=== PATIENT | female | born 1950 | race Caucasian/White ===

== ENCOUNTER 2016-06-09 10:28 | Inpatient (IN) ==
[2016-06-09] MEDS ORDERED: ONDANSETRON 4 MG/2 ML VIAL IV STA (10:50)
[2016-06-09] MEDS ORDERED: LEVOFLOXACIN INJ 750 MG in PREMIX 1 EACH IV STA (10:50)
[2016-06-09] MEDS ORDERED: ALBUTEROL/IPRATROPIUM 3 ML NEB RESP TX STA (10:50)
[2016-06-09] MEDS ORDERED: methylPREDNISolone SOD SUC 125 MG/2 ML VIAL IV STA (10:50)
--- NOTE | 2016-06-09 10:58 | Emergency Department Note ---
Arrival - Arrival Chief Complaint: Weakness Stated Complaint: multiple falls, weakness, productive cough ED Nursing Triage Note: She from home with multiple falls, weakness, and a productive cough for a couple of weeks. Her oxgen saturation was 84% on room air upon EMS arrival. She is currently 94% on room air. Mode of Arrival: Stretcher Limitations: No Limitations Source: Patient Time Seen by Provider: 06/09/16 10:50 - History of Present Illness HPI Narrative: This 65-year-old white female presents with 2 weeks of ataxia with multiple falls resulting in blows to the head as well as pain in the low back and pelvis. Despite this, obviously the pain has not been so great she cannot ambulate such that she can fall once again. She does note that on some occasions she feels like she is just about to pass out but denies palpitations, chest pain, shortness of breath, feeling warm all over, or paroxysms of cough with this. Coincident with these symptoms over the last 2 weeks has been increased dyspnea at rest and on exertion associated with intermittent wheezing and cough productive of green sputum. She denies spiking chills or fever. This is with a background of chronic obstructive lung disease. Currently she is in no acute medical distress. Onset (ago): week(s) (Patient presents 2 weeks post onset of symptoms) Allergies/Adverse Reactions: Allergies Allergy/AdvReac Type Severity Reaction Status Date / Time No Known Allergies Allergy Verified 02/09/16 00:37 Home Medications: Home Medications Medication Instructions Recorded Confirmed Type Atorvastatin [Lipitor] 40 mg PO BEDTIME tablet 12/03/14 11/02/15 Rx Ipratropium/Albuterol Inhaler 2 puffs INH Q6HR PRN #0 12/03/14 11/02/15 Rx [Combivent Respimat Inhaler] Benzonatate [Tessalon] 100 mg PO TID PRN #0 capsule 12/28/14 11/02/15 Rx Montelukast Tab [Singulair Tab] 10 mg PO DAILY tablet 12/28/14 11/02/15 Rx Albuterol/Ipratropium Neb [Duoneb] 3 ml RESP TX RT Q4H 90 Days 02/09/15 Rx Budesonide Neb [Pulmicort Respules] 0.5 mg RESP TX RT BID 90 Days 02/09/1511/01 Rx FLUoxetine [PROzac] 30 mg PO BID 08/30/15 11/02/15 History LORazepam TAB [Ativan Tab] 1 mg PO TID 08/30/15 11/02/15 History Magnesium Oxide 400 mg PO DAILY 08/30/15 11/02/15 History Methocarbamol Tab [Robaxin Tab] 500 mg PO TID 08/30/15 11/02/15 History Oxycodone HCl/Acetaminophen 1 each PO Q6H PRN 08/30/15 11/02/15 History [Oxycodone-Acetaminophen 10-325] Potassium Chloride 20 meq PO DAILY 08/30/15 11/02/15 History Theophylline ER Tab 200 mg PO Q12H 08/30/15 11/02/15 History Triamterene/Hctz 75-50 Tab 1 tablet PO DAILY 08/30/15 11/02/15 History [Maxzide 75-50] dilTIAZem HCl [Diltiazem 24Hr ER] 360 mg PO DAILY 08/30/15 11/02/15 History metFORMIN [Glucophage] 1,000 mg PO 1800 08/30/15 02/14/16 History metFORMIN [Glucophage] 1,000 mg PO QAM 08/30/15 02/14/16 History Levothyroxine Tab [Synthroid Tab] 150 mcg PO DAILY@0700 11/06/15 11/06/15 History Fluconazole 100 mg PO DAILY #3 tablet 11/12/15 Rx Theophylline ER Cap (24 Hr) 200 mg PO DAILY #30 capsule 02/07/16 Rx [Jensen-24] Levofloxacin Tab [Levaquin Tab] 750 mg PO DAILY #5 tablet 02/16/16 Rx Review of System - Review of System 12 point system: reviewed and no additional remarkable complaints except as stated - Review of System Constitutional: Present: as per HPI Respiratory: Present: as per HPI Musculoskeletal: Present: as per HPI Neurological: Present: as per HPI Medical,Surgical,& Family Hx - Medical History Cardio: History of: Hypertension Psychological: History of: Anxiety Disorders, Depression (MANIC DEPRESSIVE MOOD DISORDER) Neurology: No history of: Seizures HEENT: History of: Eye Problem (wears glasses) Endocrine: History of: Diabetes Mellitus (NIDDM), Thyroid Disorder No history of: Diabetes Mellitus (IDDM) Respiratory: History of: Asthma, Bronchitis, COPD (Chronic), Intubation Genitourinary: History of: Recurring Urinary Tract Infections Gastrointestinal: History of: Hemorrhoids Musculoskeletal: History of: Back/Neck Problems, Musculoskeletal Problems ( Donor bone to C5 & C6) - Surgical History Cardiac Surgeries: Sugical HX of: Cardiac Catheterization HEENT Surgeries: Surgical HX of: Thyroid Surgery Abdominal Surgeries: Surgical HX of: Appendectomy Reproductive Surgeries: Surgical HX of;: Hysterectomy (Partial) - Family History Family History: Reports;: Family Cancer (sister-lung), Family Heart Disease, Family Hypertension - Social History Smoking Status: Current every day smoker Frequency of Alcohol Use: None Type of Drug Use: None Exam Physical Examination: GENERAL: Well developed, well nourished elderly white female in no acute distress. HEENT: Normocephalic. No trauma. Moist mucous membranes. EOMI. PERRLA. ENT NML NECK: Supple. No adenopathy. CARDIAC: Regular. No murmurs. Heart rate 91 CHEST: Diffuse expiratory wheezing. No respiratory distress. O2 sat 94% ABDOMEN: Soft. Nontender. Active bowel sounds. EXTREMITIES: No trauma. Normal ROM. No pedal edema. Mild lumbar spine tenderness with negative leg raising. Of note full range of motion both hips without any complaints of pain. She does complain of some slight discomfort with pelvic compression. SKIN: No diaphoresis. No rash. NEURO: Alert. Oriented 3. Motor, sensory, vibratory intact. No focal deficits. Vital Signs: Vital Signs Temperature 97.6 F 06/09/16 10:29 Pulse Rate 91 H 06/09/16 11:12 Respiratory Rate 16 06/09/16 11:12 Blood Pressure 130/98 06/09/16 10:29 O2 Sat by Pulse Oximetry 99 06/09/16 11:12 Course - Reevaluation(s) Reevaluation #1: Advised patient of the necessity of admission given her change in renal function since February as well as evidence of infection. - Consultations Consultation #1: Discussed with hospitalist service who will admit for further evaluation treatment. Results - Labs CBC & BMP: 06/09/16 10:42 06/09/16 10:42 Labs: I reviewed the laboratory noted the elevated white blood count as well as the elevated creatinine. I have also noted the urine which reveals early cystitis. - Impressions EKG: Sinus rhythm with MS and QRS durations normal nonspecific ST changes. No acute injury pattern noted. - Diagnostic Findings Procedure: Chest x-ray: image reviewed by me, report reviewed by me (Left lower lobe atelectasis, evidence of COPD.), CT: image reviewed by me, report reviewed by me (Head: Cerebral atrophy with microvascular ischemia but no acute injury pattern noted.), X-ray: image reviewed by me, report reviewed by me (Pelvis: No acute fractures but DJD of the left hip, lumbar spine no acute injuries although advanced L4-L5 DJD changes.) Disposition Clinical Impression: Ataxia, Chronic renal failure, Cystitis Case discussed with: patient Disposition: Still a Patient Condition: Stable Time of Disposition: 12:19
[2016-06-09 11:05] LABS: Basophils # 0.1 10*3/uL (0.0-0.2); Basophils % 0.4 % (0.0-0.8); Eosinophils # 0.4 10*3/uL (0.0-0.87); Eosinophils % 2.6 % (0.00-10.9); Hematocrit 45.2 VOL% (35.7-47.0); Hemoglobin 14.5 GM/DL (12.0-16.0); Immature Granulocytes % 0.4 %; Immature Granulocytes Absolute 0.05 #; Lymphocytes # 1.6 10*3/uL (1.4-4.0); Lymphocytes % 11.1 % (21.3-54.2); Mean Corpuscular HGB Conc 32.1 GM/DL (32-36); Mean Corpuscular Hemoglobin 29 PG (27-34); Mean Corpuscular Volume 89.2 FL (87-102); Mean Platelet Volume 10.6 FL (9.6-12.0); Monocytes # 1.3 10*3/uL (0.11-0.8); Monocytes % 9.4 % (1.7-12.7); Neutrophils # 10.7 10*3/uL (1.4-7.4); Neutrophils % 76.1 % (38.7-73.9); Platelet Count 314 T/CUMM (130-400); Red Blood Count 5.07 MC/CUMM (3.8-5.5); Red Cell Distribution Width 15.1 % (9.3-17.3); White Blood Count 14.1 T/CUMM (4-12)
[2016-06-09] MEDS ORDERED: methylPREDNISolone SOD SUC 125 MG/2 ML VIAL ONE (11:06)
[2016-06-09] MEDS ORDERED: LEVOFLOXACIN INJ 150 ML IV ONE (11:06)
[2016-06-09] MEDS ORDERED: TERBUTALINE 1 MG/1 ML VIAL SUBCUT ONE (11:07)
[2016-06-09] MEDS ORDERED: ONDANSETRON 4 MG/2 ML VIAL ONE (11:07)
--- NOTE | 2016-06-09 11:10 | EKG Report ---
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
[2016-06-09] MEDS: TERBUTALINE 1 MG/1 ML VIAL SUBCUT SCH ×4 (11:13→18:18)
[2016-06-09 11:16] LABS: PT Patient Result 10.7 SECS; Partial Thromboplastin Time 29.8 SECS (0-40)
--- NOTE | 2016-06-09 11:31 | CT Report ---
Referring physician: Basilio Walker Exam: CT brain without contrast Date: June 09, 2016 Comparison: None Reason: Altered mental status The patient is an Emergency Department patient on June 09, 2016. Technique: Axial images of the head were obtained without the use of contrast. Total DLP was 914.6 mGy*cm. Findings: There is mild generalized cerebral atrophy/volume loss. Scattered areas of hypoattenuation are also seen within the cerebral white matter bilaterally. This is nonspecific but likely represents chronic microvascular ischemic change. No hydrocephalus or midline shift is present. There is no evidence of recent intracranial hemorrhage, abnormal mass effect or an acute infarction. No acute osseous process is seen. The mastoid air cells and visualized paranasal sinuses are clear. Impression: 1. No acute intracranial process is identified. 2. Mild generalized cerebral atrophy/volume loss and probable chronic microvascular ischemic change. The CT exam was performed using one or more of the following dose reduction techniques: Automated exposure control and adjustment of the mA and/or kV according to patient size. PROCEDURE INTERPRETED AT [facility] DEPARTMENT OF RADIOLOGY Final Report Signed by: Dr. Arlene Ag
[2016-06-09 11:35] LABS: Alanine Aminotransferase 11 U/L (13-56); Albumin 3.4 G/DL (3.4-5.0); Alkaline Phosphatase 114 U/L (45-117); Aspartate Amino Transferase 9 U/L (0-37); Blood Urea Nitrogen 60 MG/DL (7-18); Calcium 10.1 MG/DL (8.5-10.1); Glucose 113 MG/DL (74-106); Osmolality,Calculated 285.2 MOS/KG (273-304); Potassium 4.1 MMOL/L (3.5-5.1); Sodium 134 MMOL/L (136-145); Total Protein 7.5 G/DL (6.4-8.3); Troponin I Only < 0.015 NG/ML (0.00-0.045)
--- NOTE | 2016-06-09 11:44 | XRay Report ---
Referring Physician: Basilio Walker Exam: XR chest 1V portable Date: June 09, 2016 at 11:24 AM Reason: Shortness of breath Comparison: Chest 2 views February 15, 2016, chest 2 views February 25, 2013 Findings: The cardiac silhouette is normal in size. There are calcified hilar lymph nodes, and a calcific granuloma is seen at the right lung base. The lungs are also hyperexpanded, which can be seen in COPD. Minimal opacities are present at the left lung base and could represent atelectasis or scarring. Pneumonia is felt less likely. No pneumothorax or pleural effusion is identified. The osseous structures appear stable with surgical fusion of the cervical spine. Impression: There is minimal atelectasis or scarring at the left lung base. The lungs are also hyperexpanded, which can be seen in COPD. PROCEDURE INTERPRETED AT [facility] DEPARTMENT OF RADIOLOGY Final Report Signed by: Dr. Arlene Ag
--- NOTE | 2016-06-09 11:45 | XRay Report ---
Referring Physician: Basilio Walker Exam: XR pelvis AP 1 or 2 Views Date: June 09, 2016 at 11:26 AM Reason: Status post fall, pelvic pain Comparison: Left hip x-rays June 20, 2013 Findings: There is minimal joint space narrowing at the left hip as well as moderate marginal spurring at the left femoral head/neck junction. No acute fracture, dislocation or osseous destructive process is identified. Impression: 1. No acute osseous process is identified. 2. Moderate degenerative change at the left hip, similar to before. PROCEDURE INTERPRETED AT [facility] DEPARTMENT OF RADIOLOGY Final Report Signed by: Dr. Arlene Ag
--- NOTE | 2016-06-09 11:49 | XRay Report ---
Referring Physician: Basilio Walker Exam: XR lumbar spine AP/LAT Date: June 09, 2016 at 11:30 AM Reason: Status post fall, back pain, initial encounter Comparison: Lumbar spine x-rays November 11, 2015 Findings: The lumbar vertebral bodies are normal in height, and sagittal alignment is within normal limits. There is [id number] disc space narrowing at L3-L4 and multilevel anterior marginal spurring. There is also mild facet arthropathy at L4-L5 and L5-S1. No acute osseous process is seen. Note is made of a probable calcified granuloma at the right lung base and scattered calcified plaque at the abdominal aorta. Impression: Degenerative change at the lumbar spine as above, most prominent at L3-L4. This is similar to before. No acute osseous process is identified. PROCEDURE INTERPRETED AT [facility] DEPARTMENT OF RADIOLOGY Final Report Signed by: Dr. Arlene Ag
[2016-06-09 12:04] LABS: Apearance,Urine CLEAR (Clear); Bilirubin,Urine Negative (Negative); Blood, Urine Small mg/dL (Negative); Glucose,Urine (UA) Negative (Negative); Ketones,Urine Negative (Negative); Nitrite,Urine Negative (Negative); Protein,Urine Negative; RBC,Urine 3 /HPF (0-4); Urine Color Yellow (Yellow); Urine Specific Gravity 1.011 (1.001-1.035); Urine Urobilinogen < 2.0 EU/DL (0.2-1.0); WBC,Urine 10 /HPF (0-6)
[2016-06-09 12:12] LABS: Barbiturates Screen,Urine Negative (Negative); Benzodiazepines Screen,Urine Negative (Negative); Cannabinoid Screen,Urine Negative (Negative); Opiate Screen,Urine Positive (Negative); Phencyclidine Screen,Urine Negative (Negative)
[2016-06-09] MEDS ORDERED: LACTULOSE 20 GM/30 ML UDCUP PO PRN (13:11)
[2016-06-09] MEDS ORDERED: ACETAMINOPHEN 325 MG TABLET PO PRN (13:11)
[2016-06-09] MEDS ORDERED: SODIUM CHLORIDE 0.9% 1,000 ML IV ONE (13:20)
[2016-06-09] MEDS ORDERED: BENZONATATE 100 MG CAPSULE PO PRN (13:21)
--- NOTE | 2016-06-09 13:26 | Hospitalist History & Physical ---
<Alvarez Rader - Last Filed: 06/09/16 15:18> History of Present Illness History of present illness: Ms. Rodrigues is a 65 year old female with a history of hypertension, COPD, tobaccoism and chronic pain who presents to the ED with complaints of multiple falls and ataxia x 2 weeks. The patient states that, most recently, she fell last night while attempting to sit on the commode. She lost her balance and fell onto the floor. She denies hitting her head, but says this has happened several times over the last two weeks. She admits to having bouts of dizziness and blurred vision, increased shortness of breath with associated productive cough. She walks with the assistance of a walker and reports that she has hardwood floors throughout her house. She appears confused and in moderate distress as she began to cry several times throughout the interview when describing her falling episodes stating "I just keep falling and I don't know why". Otherwise, she has no other complaints. She admits to smoking 2-3 packs of cigarettes per day but refuses a nicotine patch while hospitalized. She denies alcohol use. She will be admitted to the hospital medicine service for further evaluation and treatment. She is a full code. Case has been discussed with Dr. Harvey. Home Medications Medication Instructions Recorded Confirmed Type Atorvastatin [Lipitor] 40 mg PO BEDTIME tablet 12/03/14 06/09/16 Rx Ipratropium/Albuterol Inhaler 2 puffs INH Q6HR PRN #0 12/03/14 06/09/16 Rx [Combivent Respimat Inhaler] Montelukast Tab [Singulair Tab] 10 mg PO DAILY tablet 12/28/14 06/09/16 Rx Albuterol/Ipratropium Neb [Duoneb] 3 ml RESP TX RT Q4H 90 Days 02/09/15 Rx LORazepam TAB [Ativan Tab] 1 - 2 mg PO TID PRN 08/30/15 06/09/16 History Magnesium Oxide 400 mg PO DAILY 08/30/15 06/09/16 History Potassium Chloride 20 meq PO DAILY 08/30/15 06/09/16 History Triamterene/Hctz 75-50 Tab 1 tablet PO DAILY 08/30/15 06/09/16 History [Maxzide 75-50] dilTIAZem HCl [Diltiazem 24Hr ER] 360 mg PO DAILY 08/30/15 06/09/16 History metFORMIN [Glucophage] 500 mg PO QAM 08/30/15 06/09/16 History Levothyroxine Tab [Synthroid Tab] 150 mcg PO DAILY@0700 11/06/15 06/09/16 History FLUoxetine [PROzac] 40 mg PO BEDTIME 06/09/16 06/09/16 History Levothyroxine Sodium 100 mcg PO DAILY 06/09/16 06/09/16 History Theophylline ER Tab 300 mg PO BID W/MEALS 06/09/16 06/09/16 History Theophylline ER Tab (24 Hr) 400 mg PO DAILY W/BREAKFAST 06/09/16 06/09/16 History Trazodone HCl 100 mg PO BEDTIME PRN 06/09/16 06/09/16 History Allergies Allergy/AdvReac Type Severity Reaction Status Date / Time No Known Allergies Allergy Verified 02/09/16 00:37 - Constitutional Constitutional: Present: fatigue, frequent falls, weakness. Absent: fever(s) - EENT Eyes: Present: blurry vision, requires corrective lense. Absent: loss of vision Ears: Absent: decreased hearing, ear pain - Gastrointestinal Gastrointestinal: Present: constipation - Genitourinary Genitourinary: Absent: difficulty urinating, dysuria - Musculoskeletal Musculoskeletal: Present: arthralgias, back pain, muscle weakness - Neurological Neurological: Present: dizziness, frequent falls. Absent: abnormal gait, abnormal speech, numbness, syncope Exam - Constitutional Vitals: Period Temp Pulse Resp BP Sys/Naqvi Pulse Ox Last 24 Hr 97.9 F 100 20 124/74 97 Results - Labs CBC & BMP: 06/09/16 10:42 06/09/16 10:42 <White,Debra R - Last Filed: 06/09/16 15:41> Assessment and Plan (1) Acute on chronic renal failure Status: Acute Assessment and plan: Potassium and CO2 normal, will get ABG, suspect CO2 high, NS bolus and NS at 150 ml/hr, concerned pt on metformin, Current Visit: Yes (2) Acute exacerbation of chronic obstructive airways disease Status: Acute Assessment and plan: duonebs, solumedrol IV and levaquin Current Visit: No (3) UTI (urinary tract infection) Status: Acute Assessment and plan: in 2014 grew enterococcus sensitive to vanco, Will give daptomycin Current Visit: Yes (4) Manic depressive disorder Status: Acute Assessment and plan: resume home meds when known Current Visit: No Qualifiers: Active/Remission status: in remission of unspecified degree Qualified Code( s): F31.70 - Bipolar disorder, currently in remission, most recent episode unspecified (5) Hypothyroidism Problem details: Status: Chronic Assessment and plan: cont levothyroxine Current Visit: No (6) Weakness generalized Status: Acute Assessment and plan: PT and OT Current Visit: No (7) Diabetes Status: Chronic Assessment and plan: hgb A1c, cont isc, hold metformin Current Visit: No Qualifiers: Diabetes mellitus type: type 2 (8) Diabetic neuropathy Status: Acute Current Visit: No History of Present Illness Chief complaint: falling History of present illness: Ms. Rodrigues is a 65 year old white female presents with 2 weeks of ataxia with multiple falls resulting in blows to the head as well as pain in the low back and pelvis. Despite this, obviously the pain has not been so great she cannot ambulate such that she can fall once again. She does note that on some occasions she feels like she is just about to pass out but denies palpitations, chest pain, shortness of breath, feeling warm all over, or paroxysms of cough with this. Coincident with these symptoms over the last 2 weeks has been increased dyspnea at rest and on exertion associated with intermittent wheezing and cough productive of green sputum. She denies spiking chills or fever. This is with a background of chronic obstructive lung disease. Currently she is in no acute medical distress. Medical,Surgical,& Family Hx - Medical History Cardio: History of: Hypertension Psychological: History of: Anxiety Disorders, Depression (MANIC DEPRESSIVE MOOD DISORDER) Neurology: No history of: Seizures HEENT: History of: Eye Problem (wears glasses) Endocrine: History of: Diabetes Mellitus (NIDDM), Thyroid Disorder No history of: Diabetes Mellitus (IDDM) Respiratory: History of: Asthma, Bronchitis, COPD (Chronic), Intubation Genitourinary: History of: Recurring Urinary Tract Infections Gastrointestinal: History of: Hemorrhoids Musculoskeletal: History of: Back/Neck Problems, Musculoskeletal Problems ( Donor bone to C5 & C6) - Surgical History Cardiac Surgeries: Sugical HX of: Cardiac Catheterization HEENT Surgeries: Surgical HX of: Thyroid Surgery Abdominal Surgeries: Surgical HX of: Appendectomy Reproductive Surgeries: Surgical HX of;: Hysterectomy (Partial) - Family History Family History: Reports;: Family Cancer (sister-lung), Family Heart Disease, Family Hypertension - Social History Smoking Status: Current every day smoker Frequency of Alcohol Use: None Type of Drug Use: None Marital Status: Lives With:: Spouse Functional capacity: independent ambulation - EENT Nose, mouth and throat: Present: headache(s). Absent: sore throat - Cardiovascular Cardiovascular: Present: dyspnea, dyspnea on exertion. Absent: chest pain at rest - Respiratory Respiratory: Present: cough, dyspnea, dyspnea on exertion, wheezing - Gastrointestinal Gastrointestinal: Absent: abdominal pain, nausea, vomiting - Psychiatric Psychiatric: Present: confusion, depression, difficulty concentrating - Endocrine Endocrine: Present: fatigue - Hematologic/Lymphatic Hematologic/Lymphatic: Present: easy bleeding, easy bruising Exam - Constitutional Vitals: Period Temp Pulse Resp BP Sys/Naqvi Pulse Ox Last 24 Hr 97.6 F-97.6 F 16-91 16-91 130-130/98-98 94-99 General appearance: normal weight, mild distress - Head Head exam: Present: normal inspection, normocephalic - Eye Eye exam: Present: EOMI. Absent: scleral icterus Pupils: Present: KRISTEL, normal accommodation - ENT ENT exam: Present: normal exam, normal external ear exam - Neck Neck exam: Absent: lymphadenopathy, thyromegaly - Respiratory Respiratory exam: Present: decreased breath sounds, wheezes. Absent: rhonchi - Cardiovascular Cardiovascular exam: Present: regular rate and rhythm. Absent: systolic murmur - GI/Abdominal GI/Abdominal exam: Present: normal bowel sounds, soft. Absent: tenderness - Extremities Exam Extremities exam: Present: normal inspection, normal capillary refill - Neurological Exam Neurological exam: Present: alert, oriented X3, CN II-XII intact, reflexes normal. Absent: motor sensory deficit - Psychiatric Psychiatric exam: Present: depressed, flat affect - Skin Skin exam: Present: normal color, warm Results - Labs CBC & BMP: 06/09/16 10:42 06/09/16 10:42 Lab Results: I have reviewed the past 24 hour labs - EKG EKG shows: sinus rhythm - Diagnostic Findings Procedure: Chest x-ray: report reviewed by me (copd), CT: report reviewed by me (cerebral atrophy, no acute stroke )
[2016-06-09] MEDS ORDERED: THEOPHYLLINE ER (24 HR) 200 MG CAPSULE PO SCH (13:30)
[2016-06-09] MEDS ORDERED: PANTOPRAZOLE 40 MG TABLET PO SCH (13:30)
[2016-06-09] MEDS ORDERED: DEXTROSE 50% 25 GM/50 ML VIAL IV PRN (13:39)
[2016-06-09] MEDS ORDERED: GLUCAGON 1 MG VIAL IM PRN (13:39)
[2016-06-09 13:56] LABS: Magnesium 3.1 MG/DL (1.8-2.4); Thyroid Stimulating Hormone 4.99 uIU/ml (0.358-3.74)
[2016-06-09 14:07] LABS: ABG Base Excess -0.6 MMOL/L (-2.5-2.5); ABG HCO3 24.8 MMOL/L (20-26); ABG Oxygen Saturation 93.9 % (95-100); ABG PCO2 43.6 MM HG (35-48); ABG PH 7.373 (7.35-7.45); ABG PO2 72.3 MM HG (80-95); ABG TCO2 26.1 MMOL/L (23-27)
--- NOTE | 2016-06-09 14:13 | Ultrasound Report ---
Referring Physician: Debra Harvey Exam: US renal Bilateral Date: June 09, 2016 Reason: Acute versus chronic kidney disease Comparison: CT abdomen and pelvis April 10, 2012 Technique: Grayscale ultrasound images of both kidneys were obtained. Ultrasound images were captured and stored. Findings: The right kidney measures 12.2 x 6.0 x 5.5 cm, and the left kidney measures 12.4 x 5.7 x 4.7 cm. No hydronephrosis or suspicious renal lesion is identified. The renal parenchyma echogenicity is unremarkable as visualized. Impression: No acute renal process is identified. PROCEDURE INTERPRETED AT [facility] DEPARTMENT OF RADIOLOGY Final Report Signed by: Dr. Arlene Ag
[2016-06-09] MEDS: ALBUTEROL/IPRATROPIUM 3 ML NEB RESP TX SCH ×3 (15:31→23:49)
[2016-06-09] MEDS: ENOXAPARIN 30 MG/0.3 ML SYRINGE SUBCUT SCH (15:53)
--- NOTE | 2016-06-09 17:16 | Nephrology Consult Note ---
History of Present Illness Chief complaint: Referred for MAGEN. Creatinine 0.20 Feb 2016, 7.5 on admission. History of present illness: Ms. Rodrigues is a 65 year old female who is a poor historian. She reports many falls over the last 3 weeks. She can't remember when she last ate. She lives with her and does the cooking at home. She can not remember when the last BM she had was. She reports being very thirsty. PMHx per record review: COPD, HTN, DM2, bipolar d/o, anxiety/depression. She admits to bilat dull flank pain, denies rash. UA in ED 1.011/6.0, no protein, trace blood, nitrite neg, LE +, 3 RBCs/10 wbcs on micro. No bacteria. Renal u/s with large sized kidneys: R 12.2cm, L 12.4cm, read as normal echogenicity but is subjective compared to liver parenchyma. Her home meds reviewed. she is on maxzide (75/50) commonly associated with allergic interstitial nephritis. No new meds recently per patient, but hx is questionable. No additional helpful information regarding her falls was able to be obtained when asked about dizziness, weakness. Home Medications Medication Instructions Recorded Confirmed Type Atorvastatin [Lipitor] 40 mg PO BEDTIME tablet 12/03/14 06/09/16 Rx Ipratropium/Albuterol Inhaler 2 puffs INH Q6HR PRN #0 12/03/14 06/09/16 Rx [Combivent Respimat Inhaler] Montelukast Tab [Singulair Tab] 10 mg PO DAILY tablet 12/28/14 06/09/16 Rx Albuterol/Ipratropium Neb [Duoneb] 3 ml RESP TX RT Q4H 90 Days 02/09/15 Rx LORazepam TAB [Ativan Tab] 1 - 2 mg PO TID PRN 08/30/15 06/09/16 History Magnesium Oxide 400 mg PO DAILY 08/30/15 06/09/16 History Potassium Chloride 20 meq PO DAILY 08/30/15 06/09/16 History Triamterene/Hctz 75-50 Tab 1 tablet PO DAILY 08/30/15 06/09/16 History [Maxzide 75-50] dilTIAZem HCl [Diltiazem 24Hr ER] 360 mg PO DAILY 08/30/15 06/09/16 History metFORMIN [Glucophage] 500 mg PO QAM 08/30/15 06/09/16 History Levothyroxine Tab [Synthroid Tab] 150 mcg PO DAILY@0700 11/06/15 06/09/16 History Allopurinol 1 tablet PO DAILY 06/09/16 06/09/16 History FLUoxetine [PROzac] 40 mg PO BEDTIME 06/09/16 06/09/16 History Levothyroxine Sodium 100 mcg PO DAILY 06/09/16 06/09/16 History Theophylline ER Tab 300 mg PO BID W/MEALS 06/09/16 06/09/16 History Theophylline ER Tab (24 Hr) 400 mg PO DAILY W/BREAKFAST 06/09/16 06/09/16 History Trazodone HCl 100 mg PO BEDTIME PRN 06/09/16 06/09/16 History Allergies Allergy/AdvReac Type Severity Reaction Status Date / Time No Known Allergies Allergy Verified 02/09/16 00:37 Medical,Surgical,& Family Hx - Medical History Cardio: History of: Hypertension Psychological: History of: Anxiety Disorders, Depression (MANIC DEPRESSIVE MOOD DISORDER) Neurology: No history of: Seizures HEENT: History of: Eye Problem (wears glasses) Endocrine: History of: Diabetes Mellitus (NIDDM), Thyroid Disorder No history of: Diabetes Mellitus (IDDM) Respiratory: History of: Asthma, Bronchitis, COPD (Chronic), Intubation Genitourinary: History of: Recurring Urinary Tract Infections Gastrointestinal: History of: Hemorrhoids Musculoskeletal: History of: Back/Neck Problems, Musculoskeletal Problems ( Donor bone to C5 & C6) - Surgical History Cardiac Surgeries: Sugical HX of: Cardiac Catheterization Neurologic Surgeries: Patient denies: Neurologic Surgery HEENT Surgeries: Surgical HX of: Thyroid Surgery Abdominal Surgeries: Surgical HX of: Appendectomy Reproductive Surgeries: Surgical HX of;: Hysterectomy (Partial) - Family History Family History: Reports;: Family Cancer (sister-lung), Family Heart Disease, Family Hypertension - Social History Smoking Status: Current every day smoker Frequency of Alcohol Use: None Type of Drug Use: None Exam - Vital Signs Vital signs: Period Temp Pulse Resp BP Sys/Naqvi Pulse Ox Last 24 Hr 97.9 F 100 20 124/74 97 - General Appearance General appearance: well-developed, obese, chronically ill EENT: ATNC, PERRL, mucous membranes dry, hearing intact, vision intact Neck: no JVD, no thyromegaly Respiratory: no kyphosis, wheezing, course breath sounds Cardiology: no murmurs, no rub, no edema Gastrointestinal: normoactive bowel sounds, no tenderness Integumentary: no rash, warm and dry (fine bilateral hand tremor she states has been there for years) Neurologic: no asterixis, confused Musculoskeletal: no deformities, no erythema Psychiatric: mood/affect appropriate, cooperative Results - Labs CBC & BMP: 06/09/16 10:42 06/09/16 10:42 Assessment and Plan (1) Acute kidney injury Problem details: suspicious for acute interstitial nephritis, most likely culprits in her meds are the maxzide and protonix. No acute indication for renal replacement therapy at this time. Status: Resolved Assessment and plan: Urinary indices for prerenal vs intrinsic renal process ordered. Urine eosinophils. Stop protonix, start misoprostol 200mcg po ac& hs. Stop maxzide. The treatment for severe AIN is withdrawal of possible offending agents and 10- 14 days of glucocorticoids. She is already on high dose solumedrol. Current Visit: No (2) Hematuria Problem details: Likely due to AIN. Must rule out TCCA bladder in [facility] smoker. Counseled her she should quit. Status: Acute Current Visit: Yes (3) Pyuria, sterile Problem details: Likely AIN. Urine eos 95% specific, only 50% sensitive however. Ordered and pending. No renal biopsy indicated at this time. Status: Acute Current Visit: Yes
[2016-06-09] MEDS: miSOPROStol 200 MCG TABLET PO SCH ×2 (18:01→20:25)
[2016-06-09] MEDS: THEOPHYLLINE ER 300 MG TABLET PO SCH (18:01)
[2016-06-09] MEDS: SODIUM CHLORIDE 0.9% 1,000 ML IV SCH ×2 (18:02→20:30)
[2016-06-09] MEDS: INSULIN LISPRO 100 UNIT/ML SUBCUT SCH ×2 (18:02→20:26)
[2016-06-09 18:05] LABS: Hepatitis A Ab IgM Quant 0.13 Index; Hepatitis A Ab IgM Result Negative (Negative); Hepatitis B Core IgM Quant 0.17 Index; Hepatitis B Core IgM Result Negative (Negative); Hepatitis B Surface Ag Quant < 0.10 Index; Hepatitis B Surface Ag Result Negative (Negative); Hepatitis C Virus Ab Quant 0.09 Index; Hepatitis C Virus Ab Result Negative (Negative)
[2016-06-09 18:25] LABS: Creatinine,Urine Random 102 MG/DL; Total Protein,Urine Random 44 MG/DL
[2016-06-09] MEDS: methylPREDNISolone SOD SUC 40 MG/1 ML VIAL IV SCH (18:45)
[2016-06-09] MEDS: ONDANSETRON 4 MG/2 ML VIAL IV PRN (18:47)
[2016-06-09] MEDS: BUDESONIDE 0.5 MG/2 ML NEB RESP TX SCH (19:07)
[2016-06-09] MEDS: ATORVASTATIN 40 MG TABLET PO SCH (20:25)
[2016-06-09] MEDS: ZALEPLON 5 MG CAPSULE PO PRN (20:26)
[2016-06-09] MEDS ORDERED: FLUoxetine 10 MG CAPSULE PO SCH (21:00)
[2016-06-09] MEDS: FLUoxetine 20 MG CAPSULE PO SCH (21:29)
[2016-06-10] MEDS: methylPREDNISolone SOD SUC 40 MG/1 ML VIAL IV SCH ×3 (03:42→18:12)
[2016-06-10] MEDS: ALBUTEROL/IPRATROPIUM 3 ML NEB RESP TX SCH ×6 (03:43→23:28)
[2016-06-10 05:24] LABS: Basophils % 0.1 % (0.0-0.8); Hematocrit 38.7 VOL% (35.7-47.0); Hemoglobin 12.2 GM/DL (12.0-16.0); Lymphocytes # 0.5 10*3/uL (1.4-4.0); Lymphocytes % 4.4 % (21.3-54.2); Mean Corpuscular HGB Conc 31.5 GM/DL (32-36); Mean Corpuscular Hemoglobin 29 PG (27-34); Mean Corpuscular Volume 90.6 FL (87-102); Mean Platelet Volume 10.8 FL (9.6-12.0); Monocytes # 0.1 10*3/uL (0.11-0.8); Neutrophils # 9.8 10*3/uL (1.4-7.4); Neutrophils % 93.5 % (38.7-73.9); Platelet Count 256 T/CUMM (130-400); Red Blood Count 4.27 MC/CUMM (3.8-5.5); White Blood Count 10.4 T/CUMM (4-12)
[2016-06-10 05:50] LABS: Hypochromasia 1+; Lymphocytes 6 % (20-55); Platelet Estimate Adequate; Segmented Neutrophils 94 % (50-85); Total Cells Counted 100
[2016-06-10 05:55] LABS: Calcium 9.4 MG/DL (8.5-10.1); Osmolality,Calculated 295.8 MOS/KG (273-304); Potassium 4.4 MMOL/L (3.5-5.1)
[2016-06-10] MEDS ORDERED: LEVOTHYROXINE 150 MCG TABLET PO SCH (07:00)
[2016-06-10] MEDS: BUDESONIDE 0.5 MG/2 ML NEB RESP TX SCH ×2 (08:07→19:00)
[2016-06-10] MEDS: LEVOTHYROXINE 100 MCG TABLET PO SCH (08:29)
[2016-06-10] MEDS: INSULIN LISPRO 100 UNIT/ML SUBCUT SCH ×4 (08:29→20:11)
[2016-06-10] MEDS: THEOPHYLLINE ER 300 MG TABLET PO SCH ×2 (08:29→16:37)
[2016-06-10] MEDS: miSOPROStol 200 MCG TABLET PO SCH ×4 (08:29→20:08)
[2016-06-10] MEDS: SODIUM CHLORIDE 0.9% 1,000 ML IV SCH ×3 (09:50→21:37)
--- NOTE | 2016-06-10 10:29 | Hospitalist Progress Note ---
Assessment and Plan (1) Acute on chronic renal failure Status: Acute Assessment and plan: May be secondary to acute interstitial nephritis secondary to Maxzide, Dr. Serrano is following. Urine for eosinophils is negative. Renal function appears to be improving with fluid. Continue Cytotec Current Visit: Yes (2) Acute exacerbation of chronic obstructive airways disease Status: Acute Assessment and plan: Continue duonebs, theophylline, solumedrol IV and levaquin Current Visit: No (3) UTI (urinary tract infection) Status: Acute Assessment and plan: Urine culture negative no growth, continue daptomycin for now Current Visit: Yes (4) Manic depressive disorder Status: Acute Assessment and plan: Continue Prozac Current Visit: No Qualifiers: Active/Remission status: in remission of unspecified degree Qualified Code( s): F31.70 - Bipolar disorder, currently in remission, most recent episode unspecified (5) Hypothyroidism Problem details: Status: Chronic Assessment and plan: cont levothyroxine, TSH 4.9 Current Visit: No (6) Weakness generalized Status: Acute Assessment and plan: PT and OT Current Visit: No (7) Diabetes Status: Chronic Assessment and plan: hgb A1c 5.9, cont isc, hold metformin, but sugars will be higher due to steroids. We will give low-dose of insulin. Current Visit: No Qualifiers: Diabetes mellitus type: type 2 (8) Diabetic neuropathy Status: Acute Assessment and plan: Continue gabapentin Current Visit: No Hospitalist: Subjective Interval history: Patient very emotional. She sees Dr. Alaniz and takes pain medicine frequently throughout the day. The pain medicine may be contributing to her falls. Exam - Constitutional Vitals: Period Temp Pulse Resp BP Sys/Naqvi Pulse Ox Last 24 Hr 97.9 F-98.8 F 84-100 16-25 121-146/64-84 90-99 Exam: Heart Rate-[RRR] Lungs-[diminished and wheezing but better than yesterday] GI-[+bs soft, NT] Ext-[no edema] Neuro [Motor 5/5], [alert and oriented times 3] psych [depressed mood and affect] General [no acute distress] Results - Labs CBC & BMP: 06/10/16 04:54 06/10/16 04:54 Lab Results: I have reviewed the past 24 hour labs Labs: Urine culture no growth - Diagnostic Findings Procedure: Ultrasound: report reviewed by me (Normal size kidneys but shows evidence of echogenicity) Quality Measures - Stroke Symptom Onset Unknown: No
[2016-06-10] MEDS: ENOXAPARIN 30 MG/0.3 ML SYRINGE SUBCUT SCH (14:19)
--- NOTE | 2016-06-10 15:00 | Nephrology Progress Note ---
Nephrology - PN: Subj Interval history: Pt states she feels better. FeUrea revealed intrinsic renal injury (47%). Most likely offending agents stopped. On high dose glucocorticoids. Creatinine to 6.7 from 7.5. Urine eos negative (but only 50% sensitivity) Exam (PN)-Nephrology - Vital Signs Vital signs: Period Temp Pulse Resp BP Sys/Naqvi Pulse Ox Last 24 Hr 97.9 F-98.8 F 84-100 16-25 121-156/64-88 90-99 - General Appearance General appearance: well-developed, chronically ill EENT: ATNC, PERRL, mucous membranes dry, hearing intact, vision intact Neck: no JVD, no thyromegaly Respiratory: no kyphosis, clear Cardiology: no murmurs, no rub Gastrointestinal: normoactive bowel sounds, no tenderness Integumentary: no rash, warm and dry Neurologic: no focal deficit, no asterixis, alert and oriented x3 Musculoskeletal: no deformities, no erythema - Lab 06/10/16 04:54 06/10/16 04:54 Most recent lab results ABG pH 7.373 (7.35-7.45) 06/09/16 14:05 ABG pCO2 43.6 MM HG (35-48) 06/09/16 14:05 ABG pO2 72.3 MM HG (80-95) L 06/09/16 14:05 ABG HCO3 24.8 MMOL/L (20-26) 06/09/16 14:05 ABG O2 Saturation 93.9 % (95-100) L 06/09/16 14:05 Calcium 9.4 MG/DL (8.5-10.1) 06/10/16 04:54 Magnesium 3.1 MG/DL (1.8-2.4) H 06/09/16 10:42 Assessment and Plan (1) Acute kidney injury Problem details: suspicious for acute interstitial nephritis, most likely culprits in her meds are the maxzide and protonix. No acute indication for renal replacement therapy at this time. Status: Resolved Assessment and plan: Continue misoprostol 200mcg po ac& hs vs switch to pepcid. Stop maxzide. The treatment for severe AIN is withdrawal of possible offending agents and 10- 14 days of glucocorticoids. She is already on high dose solumedrol. Current Visit: No (2) Hematuria Problem details: Likely due to AIN. Must rule out TCCA bladder in [employer] smoker. Counseled her she should quit. Status: Acute Current Visit: Yes (3) Pyuria, sterile Problem details: Likely AIN. Urine eos 95% specific, only 50% sensitive however. Ordered and pending. No renal biopsy indicated at this time. Status: Acute Current Visit: Yes
[2016-06-10] MEDS: GABAPENTIN 100 MG CAPSULE PO SCH ×2 (16:05→20:08)
[2016-06-10] MEDS: ONDANSETRON 4 MG/2 ML VIAL IV PRN ×2 (16:37→22:09)
[2016-06-10] MEDS: LORazepam 1 MG TABLET PO PRN (18:12)
[2016-06-10] MEDS: ZALEPLON 5 MG CAPSULE PO PRN (20:08)
[2016-06-10] MEDS: FLUoxetine 20 MG CAPSULE PO SCH (20:08)
[2016-06-10] MEDS: ATORVASTATIN 40 MG TABLET PO SCH (20:09)
[2016-06-11] MEDS: ALBUTEROL/IPRATROPIUM 3 ML NEB RESP TX SCH ×6 (02:55→23:41)
[2016-06-11] MEDS: ONDANSETRON 4 MG/2 ML VIAL IV PRN ×2 (03:21→20:35)
[2016-06-11] MEDS: methylPREDNISolone SOD SUC 40 MG/1 ML VIAL IV SCH ×2 (03:21→11:33)
[2016-06-11] MEDS: SODIUM CHLORIDE 0.9% 1,000 ML IV SCH ×2 (03:22→10:16)
[2016-06-11 05:42] LABS: Basophils % 0.2 % (0.0-0.8); Hematocrit 36.1 VOL% (35.7-47.0); Hemoglobin 11.7 GM/DL (12.0-16.0); Immature Granulocytes % 1.4 %; Immature Granulocytes Absolute 0.25 #; Lymphocytes # 0.5 10*3/uL (1.4-4.0); Lymphocytes % 2.9 % (21.3-54.2); Mean Corpuscular HGB Conc 32.4 GM/DL (32-36); Mean Corpuscular Hemoglobin 29 PG (27-34); Mean Corpuscular Volume 88.7 FL (87-102); Mean Platelet Volume 10.8 FL (9.6-12.0); Monocytes # 0.6 10*3/uL (0.11-0.8); Monocytes % 3.2 % (1.7-12.7); Neutrophils # 16.8 10*3/uL (1.4-7.4); Neutrophils % 92.3 % (38.7-73.9); Platelet Count 301 T/CUMM (130-400); Red Blood Count 4.07 MC/CUMM (3.8-5.5); Red Cell Distribution Width 15.3 % (9.3-17.3); White Blood Count 18.2 T/CUMM (4-12)
[2016-06-11 06:10] LABS: Calcium 8.8 MG/DL (8.5-10.1); Osmolality,Calculated 298.4 MOS/KG (273-304); Potassium 3.8 MMOL/L (3.5-5.1)
[2016-06-11 07:15] LABS: Burr Cells Slight; Hypochromasia 1+; Lymphocytes 2 % (20-55); Nucleated Red Blood Cells 1 (0-5); Platelet Estimate Adequate; Segmented Neutrophils 97 % (50-85); Total Cells Counted 100
[2016-06-11] MEDS: BUDESONIDE 0.5 MG/2 ML NEB RESP TX SCH ×2 (08:08→18:54)
[2016-06-11] MEDS: LEVOTHYROXINE 100 MCG TABLET PO SCH (08:54)
[2016-06-11] MEDS: GABAPENTIN 100 MG CAPSULE PO SCH (08:54)
[2016-06-11] MEDS: THEOPHYLLINE ER 300 MG TABLET PO SCH ×2 (08:54→17:37)
[2016-06-11] MEDS: MONTELUKAST 10 MG TABLET PO SCH (08:54)
[2016-06-11] MEDS: miSOPROStol 200 MCG TABLET PO SCH ×4 (08:54→20:34)
[2016-06-11] MEDS: LORazepam 1 MG TABLET PO PRN ×2 (08:54→15:35)
[2016-06-11] MEDS: INSULIN LISPRO 100 UNIT/ML SUBCUT SCH ×4 (08:55→21:18)
[2016-06-11] MEDS ORDERED: FAMOTIDINE 20 MG TABLET PO SCH (10:30)
[2016-06-11] MEDS: LEVOFLOXACIN INJ 500 MG in PREMIX 1 EACH IV SCH (11:34)
--- NOTE | 2016-06-11 12:28 | Hospitalist Progress Note ---
Assessment and Plan (1) Acute on chronic renal failure Status: Acute Assessment and plan: Renal function continues to improve off medications. Evidence suggests that patient has acute interstitial nephritis. Current Visit: Yes (2) Acute exacerbation of chronic obstructive airways disease Status: Acute Assessment and plan: Continue duonebs, theophylline, decrease steroids since they are elevating her white count. Continue Levaquin Current Visit: No (3) UTI (urinary tract infection) Status: Acute Assessment and plan: Urine culture negative no growth, continue daptomycin today may discontinue tomorrow. Current Visit: Yes (4) Manic depressive disorder Status: Acute Assessment and plan: Continue Prozac Current Visit: No Qualifiers: Active/Remission status: in remission of unspecified degree Qualified Code( s): F31.70 - Bipolar disorder, currently in remission, most recent episode unspecified (5) Hypothyroidism Problem details: Status: Chronic Assessment and plan: cont levothyroxine, TSH 4.9 Current Visit: No (6) Weakness generalized Status: Acute Assessment and plan: PT and OT, up in chair 3 times daily Current Visit: No (7) Diabetes Status: Chronic Assessment and plan: hgb A1c 5.9, cont isc, hold metformin, sugars will be higher due to steroids. We will give low-dose of insulin. Current Visit: No Qualifiers: Diabetes mellitus type: type 2 (8) Diabetic neuropathy Status: Acute Assessment and plan: Continue gabapentin Current Visit: No Hospitalist: Subjective Interval history: Patient's creatinine is much better today. Patient is not making any effort to get out of bed on her own. I told her she had to sit in the chair 3 times today. Patient's not as weak as she thinks. She has received adequate hydration. She reports having epigastric discomfort most likely due to GERD after stopping her Protonix. Dr. Serrano told me it would be okay for me to give her Pepcid. Exam - Constitutional Vitals: Period Temp Pulse Resp BP Sys/Naqvi Pulse Ox Last 24 Hr 98.4 F-98.7 F 87-108 16-20 133-162/70-98 92-99 Exam: Heart Rate-[RRR] Lungs-[diminished and occasional wheezes GI-[+bs soft, NT] Ext-[no edema] Neuro [Motor 5/5], [alert and oriented times 3] psych [depressed mood and flat affect] General [no acute distress] Results - Labs CBC & BMP: 06/11/16 04:23 06/11/16 04:23 Lab Results: I have reviewed the past 24 hour labs Labs: Blood cultures 2 negative, urine culture negative Quality Measures - Stroke Symptom Onset Unknown: No
--- NOTE | 2016-06-11 13:09 | Nephrology Progress Note ---
Nephrology - PN: Subj Interval history: More alert. Denies SOB/pain. Exam (PN)-Nephrology - Vital Signs Vital signs: Period Temp Pulse Resp BP Sys/Naqvi Pulse Ox Last 24 Hr 98.4 F-98.7 F 87-108 16-20 133-162/70-98 92-99 - General Appearance General appearance: well-developed, obese EENT: ATNC, PERRL, mucous membranes dry, hearing intact, vision intact Neck: no JVD, no thyromegaly Respiratory: no kyphosis, clear Cardiology: no murmurs, no rub Gastrointestinal: normoactive bowel sounds, no tenderness Integumentary: no rash, warm and dry Neurologic: no focal deficit, no asterixis, alert and oriented x3 Musculoskeletal: no deformities, no erythema Psychiatric: mood/affect appropriate, cooperative - Lab 06/11/16 04:23 06/11/16 04:23 Most recent lab results ABG pH 7.373 (7.35-7.45) 06/09/16 14:05 ABG pCO2 43.6 MM HG (35-48) 06/09/16 14:05 ABG pO2 72.3 MM HG (80-95) L 06/09/16 14:05 ABG HCO3 24.8 MMOL/L (20-26) 06/09/16 14:05 ABG O2 Saturation 93.9 % (95-100) L 06/09/16 14:05 Calcium 8.8 MG/DL (8.5-10.1) 06/11/16 04:23 Magnesium 3.1 MG/DL (1.8-2.4) H 06/09/16 10:42 Assessment and Plan (1) Acute kidney injury Problem details: Suspected acute interstitial nephritis. No renal biopsy indicated. Most likely culprits in her meds are the maxzide and protonix. Stopped and renal function has improved. No acute indication for renal replacement therapy at this time. Creatinine down to 4.9 from 6.7 yesterday. UOP increasing. Status: Resolved Assessment and plan: Continue misoprostol 200mcg x 2 more days. Switched to pepcid. Continue prednisone 40mg daily, wean to 20mg daily x 3d, then 10mg x 3 days then stop. Current Visit: No (2) Hematuria Problem details: Likely due to AIN. Must rule out TCCA bladder in [facility] smoker. Counseled her she should quit. Status: Acute Current Visit: Yes (3) Pyuria, sterile Problem details: Likely AIN. Urine eos 95% specific, only 50% sensitive however. Ordered and pending. No renal biopsy indicated at this time. Status: Acute Current Visit: Yes
[2016-06-11] MEDS: INSULIN GLARGINE 100 UNIT/ML SUBCUT SCH (15:35)
[2016-06-11] MEDS: ENOXAPARIN 30 MG/0.3 ML SYRINGE SUBCUT SCH (17:37)
[2016-06-11] MEDS: ATORVASTATIN 40 MG TABLET PO SCH (20:34)
[2016-06-11] MEDS: ZALEPLON 5 MG CAPSULE PO PRN (20:34)
[2016-06-11] MEDS: FAMOTIDINE 20 MG TABLET PO SCH (20:34)
[2016-06-11] MEDS: FLUoxetine 20 MG CAPSULE PO SCH (20:35)
[2016-06-12] MEDS: ALBUTEROL/IPRATROPIUM 3 ML NEB RESP TX SCH ×5 (03:19→19:21)
[2016-06-12 07:02] LABS: Basophils % 0.1 % (0.0-0.8); Hematocrit 36.2 VOL% (35.7-47.0); Hemoglobin 11.9 GM/DL (12.0-16.0); Immature Granulocytes % 1.7 %; Immature Granulocytes Absolute 0.32 #; Lymphocytes # 0.8 10*3/uL (1.4-4.0); Lymphocytes % 4.5 % (21.3-54.2); Mean Corpuscular HGB Conc 32.9 GM/DL (32-36); Mean Corpuscular Hemoglobin 28 PG (27-34); Mean Corpuscular Volume 86.4 FL (87-102); Mean Platelet Volume 10.8 FL (9.6-12.0); Monocytes # 1.6 10*3/uL (0.11-0.8); Monocytes % 8.8 % (1.7-12.7); Neutrophils # 15.6 10*3/uL (1.4-7.4); Neutrophils % 84.9 % (38.7-73.9); Platelet Count 280 T/CUMM (130-400); Red Blood Count 4.19 MC/CUMM (3.8-5.5); Red Cell Distribution Width 15.3 % (9.3-17.3); White Blood Count 18.4 T/CUMM (4-12)
[2016-06-12] MEDS: BUDESONIDE 0.5 MG/2 ML NEB RESP TX SCH ×2 (07:25→19:21)
[2016-06-12] MEDS: INSULIN LISPRO 100 UNIT/ML SUBCUT SCH ×4 (07:37→21:54)
[2016-06-12 07:39] LABS: Calcium 9.1 MG/DL (8.5-10.1); Osmolality,Calculated 297.4 MOS/KG (273-304); Potassium 3.3 MMOL/L (3.5-5.1)
[2016-06-12 07:52] LABS: Hypochromasia 1+; Lymphocytes 7 % (20-55); Segmented Neutrophils 84 % (50-85); Target Cells Slight; Total Cells Counted 100
[2016-06-12] MEDS ORDERED: predniSONE 20 MG TABLET PO SCH (09:00)
[2016-06-12] MEDS: miSOPROStol 200 MCG TABLET PO SCH ×2 (09:13→11:52)
[2016-06-12] MEDS: FAMOTIDINE 20 MG TABLET PO SCH ×2 (09:14→20:16)
[2016-06-12] MEDS: MONTELUKAST 10 MG TABLET PO SCH (09:14)
[2016-06-12] MEDS: THEOPHYLLINE ER 300 MG TABLET PO SCH ×2 (09:14→16:20)
[2016-06-12] MEDS: LEVOTHYROXINE 100 MCG TABLET PO SCH (09:16)
[2016-06-12] MEDS: ONDANSETRON 4 MG/2 ML VIAL IV PRN (11:07)
--- NOTE | 2016-06-12 12:50 | XRay Report ---
History: Shortness of breath and wheezing Date: 06/12/2016 Study: Chest x-ray AP portable Comparison exam: June 09, 2016 There is cardiomegaly. The pulmonary vasculature is slightly more prominent and ill-defined than on the comparison study. There is no gross pleural effusion. There is some mild hazy edema in the lung bases, left more than right. There are some scattered nodes emphysematous changes in the lungs. There is [id number] thoracic spondylosis and mild osteopenia. Impression: Evidence of mild CHF with some early bibasilar interstitial edema PROCEDURE INTERPRETED AT [facility] Final Report Signed by: Dr. Hallie Owens
[2016-06-12] MEDS: ENOXAPARIN 30 MG/0.3 ML SYRINGE SUBCUT SCH (13:32)
--- NOTE | 2016-06-12 14:16 | Nephrology Progress Note ---
Nephrology - PN: Subj Interval history: Creatinine continues to improve rapidly. Pt states she feels terrible. Nausea. WBC still elevated despite broad spectrum empiric antibiotics, no source to date. SaO2 down to 90% this am. Uses supplemental O2 @ 2L/min at home. Still smokes. Suspected chronic interstitial from maxzide +/- PPI custodial. Being treated with oral prednisone and withdrawal of PPI/maxzide. Exam (PN)-Nephrology - Vital Signs Vital signs: Period Temp Pulse Resp BP Sys/Naqvi Pulse Ox Last 24 Hr 97.4 F-99.5 F 61-115 16-20 127-156/81-90 90-99 - General Appearance General appearance: well-developed, chronically ill EENT: ATNC, PERRL, mucous membranes moist, hearing intact, vision intact Neck: no JVD, no thyromegaly Respiratory: no kyphosis, rales, course breath sounds Cardiology: no murmurs, no edema Gastrointestinal: normoactive bowel sounds, no tenderness Integumentary: no rash, warm and dry Neurologic: no focal deficit, no asterixis, alert and oriented x3 Musculoskeletal: no deformities, no erythema Psychiatric: depressed, cooperative - Lab 06/12/16 06:27 06/12/16 06:27 Most recent lab results ABG pH 7.373 (7.35-7.45) 06/09/16 14:05 ABG pCO2 43.6 MM HG (35-48) 06/09/16 14:05 ABG pO2 72.3 MM HG (80-95) L 06/09/16 14:05 ABG HCO3 24.8 MMOL/L (20-26) 06/09/16 14:05 ABG O2 Saturation 93.9 % (95-100) L 06/09/16 14:05 Calcium 9.1 MG/DL (8.5-10.1) 06/12/16 06:27 Magnesium 3.1 MG/DL (1.8-2.4) H 06/09/16 10:42 Assessment and Plan (1) Acute kidney injury Problem details: Renal function has improved. No acute indication for renal replacement therapy at this time. Creatinine down to 3.7 from 4.9 yesterday. UOP increasing. Status: Resolved Assessment and plan: Stop misoprostol. Switched to pepcid. Continue prednisone 40mg daily, wean to 20mg daily x 3d, then 10mg x 3 days then stop. Current Visit: No (2) Hematuria Problem details: Likely due to AIN. Must rule out TCCA bladder in [facility] smoker. Counseled her she should quit. Status: Acute Current Visit: Yes (3) Pyuria, sterile Problem details: Likely AIN. Urine eos 95% specific, only 50% sensitive however. Ordered and pending. No renal biopsy indicated at this time. Status: Acute Current Visit: Yes (4) Acute exacerbation of chronic obstructive airways disease Status: Acute Current Visit: No (5) Tobacco use Status: Chronic Current Visit: No (6) Type 2 diabetes mellitus Status: Acute Current Visit: No (7) Nausea Status: Acute Current Visit: No (8) Leukocytosis Problem details: Concern for occult infection, on daptomycin and levofloxacin. Pulmonology consult to assist with lung issues. Status: Acute Current Visit : Yes
[2016-06-12 14:56] LABS: Apearance,Urine CLEAR (Clear); Bacteria,Urine Occasional /HPF (Few); Bilirubin,Urine Negative (Negative); Blood, Urine Moderate mg/dL (Negative); Glucose,Urine (UA) Negative (Negative); Ketones,Urine Negative (Negative); Mucus,Urine Occasional /LPF (Occasional); Nitrite,Urine Negative (Negative); Protein,Urine Negative; RBC,Urine 100 /HPF (0-4); Squamous Epithelial Cell,Urine Occasional /HPF (0-10); Urine Color Straw (Yellow); Urine Specific Gravity 1.008 (1.001-1.035); Urine Urobilinogen < 2.0 EU/DL (0.2-1.0); WBC,Urine 18 /HPF (0-6)
--- NOTE | 2016-06-12 17:11 | Hospitalist Progress Note ---
Assessment and Plan (1) Acute exacerbation of chronic obstructive airways disease Status: Acute Current Visit: No (2) Manic depressive disorder Status: Acute Current Visit: No Qualifiers: Active/Remission status: in remission of unspecified degree Qualified Code( s): F31.70 - Bipolar disorder, currently in remission, most recent episode unspecified (3) Diabetes Status: Chronic Current Visit: No Qualifiers: Diabetes mellitus type: type 2 (4) Diabetic neuropathy Status: Acute Current Visit: No (5) Acute on chronic renal failure Status: Acute Current Visit: Yes (6) Leukocytosis Problem details: Concern for occult infection, on daptomycin and levofloxacin. Pulmonology consult to assist with lung issues. Status: Acute Current Visit : Yes Hospitalist: Subjective Interval history: No acute events overnight. Patient reports that she felt really bad this morning , she was tired. She now says that she feels better. MAGEN is improving. Leukocytosis is unchanged. Exam - Constitutional Vitals: Period Temp Pulse Resp BP Sys/Naqvi Pulse Ox Last 24 Hr 97.4 F-99.5 F 85-115 17-20 127-156/81-90 90-99 General appearance: over weight - Head Head exam: Present: normocephalic, atraumatic - Eye Eye exam: Present: EOMI Pupils: Present: KRISTEL - ENT ENT exam: Present: normal exam - Neck Neck exam: Present: normal inspection - Respiratory Respiratory exam: Present: clear to auscultation bilaterally. Absent: rhonchi, wheezes - Cardiovascular Cardiovascular exam: Present: regular rate and rhythm - GI/Abdominal GI/Abdominal exam: Present: normal bowel sounds, soft. Absent: tenderness, rebound - Extremities Exam Extremities exam: Present: normal inspection - Back Exam Back exam: Present: normal inspection - Neurological Exam Neurological exam: Present: alert, oriented X3 - Psychiatric Psychiatric exam: Present: normal affect, normal mood - Skin Skin exam: Present: warm, intact Results - Labs CBC & BMP: 06/12/16 06:27 06/12/16 06:27 Quality Measures - Stroke Symptom Onset Unknown: No
[2016-06-12] MEDS: POTASSIUM CHLORIDE RIDER 10 MEQ in PREMIX 1 EACH IV PRN ×3 (17:58→22:27)
--- NOTE | 2016-06-12 18:07 | Pulmonology Consult Note ---
History of Present Illness Chief complaint: S OB. Cough. Abnormal chest x-ray. History of present illness: Ms. Rodrigues is a 65 year old [place] female. I been asked to see her in pulmonary consultation. This patient has a cough productive of thick tenacious nondiscolored sputum there has been no hemoptysis. She complains of shortness of breath dyspnea on exertion. I did not get any history of cardiac angina. As far as I can tell this no significant dysphagia and reflux is under good control. She admits to continuing 2-3 packs of cigarettes per day. When I last saw her January 2016 or early February 2016 she told me she had quit that day. Patient is also having some problems with falls. The only instance that she was willing to describe was that she sort of missed the commode and got stuck between the commode and something else. I did not get a definite history of spontaneous falls but I think it is worth putting her on a air sampling and monitoring to see. Review of her old records show that this is a problem she has had a long- term basis. The remainder the physical exam is noncontributory. Allergies. None Present medicines. See below Home medicines. See above Past history. COPD. Bronchospastic disease. Arthritis. Anxiety. Degenerative disc disease. Degenerative joint disease. Diabetes mellitus. High blood pressure. Insomnia. Obesity. Recurrent sinusitis. Hyperlipidemia. A history of nonspecified heart disease. Gout .hypothyroidism. Family history. Positive for heart disease, diabetes, mental illness and cancer Previous surgeries. Neck surgery. Partial hysterectomy. Social history. Smokes 2 pack or more of cigarettes per day. In January 2016 or early February 2016 patient told me I am quitting today. Denies alcohol. Chest x-ray. My interpretation. Mild cardiomegaly. Pulmonary arteries are in the upper range of normal. No definite hilar adenopathy. There is dense calcification in the inferior right hilum. Mediastinum is normal. Upper lung jolley are normal. Lower lung jolley reveal some increase in interstitial markings especially peripherally. There is no fluid in the costophrenic angles. This is a portable film. Microbiology. Urine is growing an unidentified organ. Lab. Potassium is low at 3.3. Creatinine is dropped from 7.50-3.70. White count is elevated at 18,485 segs. H&H is 11.9/36.6. Platelets 280,000. Liver function tests are normal. Total protein 7.5 albumin is low at 3.4 globulins are up at 4.1. Free T4 is in the normal range. There is a slight increase in TSH. ABGs. FiO2 28%. PH 7.37. PCO2 43.6. PO2 72.3. Bicarb 24.8. Labs been reviewed. Medicines been reviewed. Physical exam. Vital signs. See below. Temperature between 99 and 99.5 on 3 occasions in the last 24 hours Psychiatric. Oriented 3 Face. Symmetrical. Lips and tongue appear to be normal. Neck. Symmetrical. No meningismus. Thyroid was not palpated Lymphatics. No submandibular cervical supraclavicular or epitrochlear adenopathy. Chest. Symmetrical and kyphotic with hyperinflation prolonged incomplete expiration. Patient has coarse large airway wheezing she has high-pitched peripheral wheezes. She has coarse large airway congestion. Heart. Sounds are partially obscured by respiratory noise. I do not hear a gallop. Abdomen. Nondistended. Bowel sounds. Lower extremities. No edema. Nothing to suggest deep venous thrombophlebitis Neurologic. Cranial nerves are intact. Patient has some movement in all 4 extremities. Sensory exam was not done. Gait was not tested. Skin of the face and hand shows no cancerous infectious lesions are purple in the lower extremities below the knees and appropriate per prone the upper extremities on the dorsal surfaces bilaterally. No other areas of skin were examined. The remainder the exam was noncontributory. Impression. 1. COPD with bronchospastic disease 2. Acute exacerbation of COPD and bronchospastic disease 3. Tobacco abuse 4. Acute on chronic renal failure 5. Abnormal chest x-ray with increased interstitial markings at both bases. This could be retention of secretions. Other things to keep in mind her bibasilar pneumonia and congestive heart failure. 6. Hypokalemia. 7. Acute urinary tract infection. 8. Diabetes mellitus Plan. 1. Agree with ventilation therapy with DuoNeb. We will add inhalation therapy twice a day with Pulmozyme. 2. Mucinex 3. Two-view chest x-ray 4. Sputum for Gram stain culture and sensitivity 5. Cold agglutinins 6. Legionella titer 7. Agree with Nadiyair 8. We will change prednisone to Solu-Medrol 20 IV push every 12 hours. This may work better on her bronchospasm 9. The patient continues with peripheral wheezing we did not find any cardiac reasons not to use it, I will try IV Aminophyllin 10. 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 Home Medications Medication Instructions Recorded Confirmed Type Atorvastatin [Lipitor] 40 mg PO BEDTIME tablet 12/03/14 06/09/16 Rx Ipratropium/Albuterol Inhaler 2 puffs INH Q6HR PRN #0 12/03/14 06/09/16 Rx [Combivent Respimat Inhaler] Montelukast Tab [Singulair Tab] 10 mg PO DAILY tablet 12/28/14 06/09/16 Rx Albuterol/Ipratropium Neb [Duoneb] 3 ml RESP TX RT Q4H 90 Days 02/09/15 Rx LORazepam TAB [Ativan Tab] 1 - 2 mg PO TID PRN 08/30/15 06/09/16 History Magnesium Oxide 400 mg PO DAILY 08/30/15 06/09/16 History Potassium Chloride 20 meq PO DAILY 08/30/15 06/09/16 History Triamterene/Hctz 75-50 Tab 1 tablet PO DAILY 08/30/15 06/09/16 History [Maxzide 75-50] dilTIAZem HCl [Diltiazem 24Hr ER] 360 mg PO DAILY 08/30/15 06/09/16 History metFORMIN [Glucophage] 500 mg PO QAM 08/30/15 06/09/16 History Levothyroxine Tab [Synthroid Tab] 150 mcg PO DAILY@0700 11/06/15 06/09/16 History Allopurinol 1 tablet PO DAILY 06/09/16 06/09/16 History FLUoxetine [PROzac] 40 mg PO BEDTIME 06/09/16 06/09/16 History Levothyroxine Sodium 100 mcg PO DAILY 06/09/16 06/09/16 History Theophylline ER Tab 300 mg PO BID W/MEALS 06/09/16 06/09/16 History Theophylline ER Tab (24 Hr) 400 mg PO DAILY W/BREAKFAST 06/09/16 06/09/16 History Trazodone HCl 100 mg PO BEDTIME PRN 06/09/16 06/09/16 History Allergies Allergy/AdvReac Type Severity Reaction Status Date / Time No Known Allergies Allergy Verified 02/09/16 00:37 Exam (Pulmonay) H&P - Constitutional Vitals: Period Temp Pulse Resp BP Sys/Naqvi Pulse Ox Last 24 Hr 97.4 F-99.5 F 85-115 17-20 127-156/81-90 90-99 Medical,Surgical,& Family Hx - Medical History Cardio: History of: Hypertension Psychological: History of: Anxiety Disorders, Depression (MANIC DEPRESSIVE MOOD DISORDER) Neurology: No history of: Seizures HEENT: History of: Eye Problem (wears glasses) Endocrine: History of: Diabetes Mellitus (NIDDM), Thyroid Disorder No history of: Diabetes Mellitus (IDDM) Respiratory: History of: Asthma, Bronchitis, COPD (Chronic), Intubation Genitourinary: History of: Recurring Urinary Tract Infections Gastrointestinal: History of: Hemorrhoids Musculoskeletal: History of: Back/Neck Problems, Musculoskeletal Problems ( Donor bone to C5 & C6) - Surgical History Cardiac Surgeries: Sugical HX of: Cardiac Catheterization Neurologic Surgeries: Patient denies: Neurologic Surgery HEENT Surgeries: Surgical HX of: Thyroid Surgery Abdominal Surgeries: Surgical HX of: Appendectomy Reproductive Surgeries: Surgical HX of;: Hysterectomy (Partial) - Family History Family History: Reports;: Family Cancer (sister-lung), Family Heart Disease, Family Hypertension - Social History Smoking Status: Current every day smoker Frequency of Alcohol Use: None Type of Drug Use: None Results - Labs CBC & BMP: 06/12/16 06:27 06/12/16 06:27 Quality Measures - Stroke Symptom Onset Unknown: No
[2016-06-12] MEDS: DORNASE ALFA 2.5 MG/2.5 ML VIAL RESP TX SCH (19:15)
[2016-06-12] MEDS: ATORVASTATIN 40 MG TABLET PO SCH (20:16)
[2016-06-12] MEDS: FLUoxetine 20 MG CAPSULE PO SCH (20:18)
[2016-06-12] MEDS: methylPREDNISolone SOD SUC 40 MG/1 ML VIAL IV SCH (20:19)
[2016-06-12] MEDS: ZALEPLON 5 MG CAPSULE PO PRN (20:57)
[2016-06-13] MEDS: POTASSIUM CHLORIDE RIDER 10 MEQ in PREMIX 1 EACH IV PRN ×4 (00:27→17:24)
[2016-06-13] MEDS: ALBUTEROL/IPRATROPIUM 3 ML NEB RESP TX SCH ×6 (00:39→19:25)
[2016-06-13 06:20] LABS: Basophils % 0.1 % (0.0-0.8); Hematocrit 34.3 VOL% (35.7-47.0); Hemoglobin 11.4 GM/DL (12.0-16.0); Immature Granulocytes % 1.6 %; Immature Granulocytes Absolute 0.23 #; Lymphocytes # 0.6 10*3/uL (1.4-4.0); Lymphocytes % 3.9 % (21.3-54.2); Mean Corpuscular HGB Conc 33.2 GM/DL (32-36); Mean Corpuscular Hemoglobin 29 PG (27-34); Mean Corpuscular Volume 86.2 FL (87-102); Mean Platelet Volume 10.6 FL (9.6-12.0); Monocytes # 0.9 10*3/uL (0.11-0.8); Monocytes % 6.1 % (1.7-12.7); Neutrophils # 13.1 10*3/uL (1.4-7.4); Neutrophils % 88.3 % (38.7-73.9); Platelet Count 239 T/CUMM (130-400); Red Blood Count 3.98 MC/CUMM (3.8-5.5); Red Cell Distribution Width 15.4 % (9.3-17.3); White Blood Count 14.8 T/CUMM (4-12)
[2016-06-13 06:53] LABS: Hypochromasia Slight; Lymphocytes 2 % (20-55); Microcytosis 1+; Platelet Estimate Adequate; Segmented Neutrophils 89 % (50-85); Total Cells Counted 100
[2016-06-13 06:57] LABS: Calcium 8.5 MG/DL (8.5-10.1); Magnesium 1.5 MG/DL (1.8-2.4); Osmolality,Calculated 297.4 MOS/KG (273-304); Potassium 3.4 MMOL/L (3.5-5.1)
[2016-06-13] MEDS: BUDESONIDE 0.5 MG/2 ML NEB RESP TX SCH ×2 (07:51→19:26)
[2016-06-13] MEDS: DORNASE ALFA 2.5 MG/2.5 ML VIAL RESP TX SCH ×2 (07:51→19:25)
[2016-06-13] MEDS: INSULIN LISPRO 100 UNIT/ML SUBCUT SCH ×4 (08:13→21:48)
--- NOTE | 2016-06-13 09:26 | XRay Report ---
XR chest 2V Indication: COPD. Wheezing. Chest 2 views: Comparison yesterday. ACDF, scattered calcified granulomata and diffuse airways disease with The thickening appears unchanged. Given variation in technique, heart size is normal. Impression: No smoking change from yesterday. Continued airways disease. PROCEDURE INTERPRETED AT [facility] DEPARTMENT OF RADIOLOGY Final Report Signed by: Todd Coronado M.D.
[2016-06-13] MEDS: LEVOTHYROXINE 100 MCG TABLET PO SCH (09:28)
[2016-06-13] MEDS: THEOPHYLLINE ER 300 MG TABLET PO SCH ×2 (09:28→16:07)
[2016-06-13] MEDS: FAMOTIDINE 20 MG TABLET PO SCH ×2 (09:28→21:44)
[2016-06-13] MEDS: methylPREDNISolone SOD SUC 40 MG/1 ML VIAL IV SCH ×2 (09:28→21:40)
[2016-06-13] MEDS: MONTELUKAST 10 MG TABLET PO SCH (09:28)
[2016-06-13] MEDS: INSULIN GLARGINE 100 UNIT/ML SUBCUT SCH (09:29)
[2016-06-13] MEDS: LORazepam 1 MG TABLET PO PRN ×2 (09:32→16:07)
--- NOTE | 2016-06-13 10:39 | Pulmonology Progress Note ---
Pulmonary - PN: Subj Interval history: This is a 65-year-old [place] female whom I saw in pulmonary consultation 06/12/2016. My impressions were. 1. COPD with bronchospastic disease 2. Acute exacerbation of COPD and bronchospastic disease 3. Tobacco abuse 4. Acute on chronic renal failure 5. Abnormal chest x-ray with increased interstitial markings at both bases. This could be retention of secretions. Other things to keep in mind her bibasilar pneumonia and congestive heart failure. 6. Hypokalemia. 7. Acute urinary tract infection. 8. Diabetes mellitus 06/13/2016. Today's chest x-ray looks better. Heart size is normal. Pulmonary arteries are top normal. No hilar adenopathy. Mediastinum is normal. Patient has some increased interstitial markings in the lingula and at the left base. This could very easily be an early pneumonia. Previously noted increased markings in the right base are about 75% resolved. There is no blunting of the costophrenic angles. I can see no pleural fluid at the bases on lateral film. I do not think today's film represents congestive heart. Cold agglutinins are negative. There are no positive cultures so far. Sputum for Gram stain are pending. Legionella titers pill pending. White blood cell count is dropped from 18,000 414,800 with 83 segs. Sodium is 140. Potassium 3.4. Creatinine is 3.00 with a BUN of 53. Labs been reviewed Medicines been reviewed Physical exam. Vital signs. See below Psychiatric. Oriented 3. Just a little bit grumpy. Neurologic. Cranial nerves are intact. Long track motor functions intact. Face. Symmetrical. Lips and tongue are normal. Neck. Symmetrical. No meningismus. Lymphatics. No submandibular cervical supraclavicular or epitrochlear adenopathy Chest is symmetrical hyperinflated kyphotic. Expiration is prolonged. There is a marked improvement of patient's wheezing and large airway congestion today. Heart. No gallop Abdomen. Nondistended. Bowel sounds are present. Lower extremities. No edema. Nothing to suggest deep venous thrombophlebitis The remainder the physical exam is negative Plan. 1. 06/12/2016. Agree with ventilation therapy with DuoNeb. We will add inhalation therapy twice a day with Pulmozyme. 2. Mucinex 3. Two-view chest x-ray to be done 06/13/2006 4. Sputum for Gram stain culture and sensitivity 5. Cold agglutinins 6. Legionella titer 7. Agree with Nadiyair 8. 06/12/2016. We will change prednisone to Solu-Medrol 20 IV push every 12 hours. This may work better on her bronchospasm 9. 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 06/13/2016. Chest x-ray and chest exam markedly improved compared to age studies and exam on 06/12/2016. Continue present therapy. Home Medications Exam (Progress Note) - Constitutional Vitals: Period Temp Pulse Resp BP Sys/Naqvi Pulse Ox Last 24 Hr 97.4 F-99.5 F 85-115 16-22 117-143/64-88 90-99 Results - Labs CBC & BMP: 06/13/16 05:11 06/13/16 05:11
--- NOTE | 2016-06-13 11:32 | Nephrology Progress Note ---
Nephrology - PN: Subj Interval history: Pt states she feels better. WBC down. Appreciate pulmonology assessment and expertise. Creatinine down to 3.0. No more nausea. eGFR 17cc/min by CKD-EPI formula. Exam (PN)-Nephrology - Vital Signs Vital signs: Period Temp Pulse Resp BP Sys/Naqvi Pulse Ox Last 24 Hr 97.4 F-99.5 F 85-115 16-22 117-143/64-86 90-99 - Lab 06/13/16 05:11 06/13/16 05:11 Most recent lab results ABG pH 7.373 (7.35-7.45) 06/09/16 14:05 ABG pCO2 43.6 MM HG (35-48) 06/09/16 14:05 ABG pO2 72.3 MM HG (80-95) L 06/09/16 14:05 ABG HCO3 24.8 MMOL/L (20-26) 06/09/16 14:05 ABG O2 Saturation 93.9 % (95-100) L 06/09/16 14:05 Calcium 8.5 MG/DL (8.5-10.1) 06/13/16 05:11 Magnesium 1.5 MG/DL (1.8-2.4) L 06/13/16 05:11 Assessment and Plan (1) Acute kidney injury Problem details: Renal function has improved. No acute indication for renal replacement therapy at this time. Creatinine down to 3.7 from 4.9 yesterday. UOP increasing. Status: Resolved Assessment and plan: Stop misoprostol. Switched to pepcid. Continue prednisone 40mg daily, wean to 20mg daily x 3d, then 10mg x 3 days then stop. Current Visit: No (2) Hematuria Problem details: Likely due to AIN. Must rule out TCCA bladder in fpc smoker. Counseled her she should quit. Status: Acute Current Visit: Yes (3) Pyuria, sterile Problem details: Likely AIN. Urine eos 95% specific, only 50% sensitive however. Ordered and pending. No renal biopsy indicated at this time. Status: Acute Current Visit: Yes (4) Acute exacerbation of chronic obstructive airways disease Status: Acute Current Visit: No (5) Tobacco use Status: Chronic Current Visit: No (6) Type 2 diabetes mellitus Status: Acute Current Visit: No (7) Nausea Status: Acute Current Visit: No (8) Leukocytosis Problem details: Concern for occult infection, on daptomycin and levofloxacin. Pulmonology consult to assist with lung issues. Status: Acute Current Visit : Yes
[2016-06-13] MEDS: LEVOFLOXACIN INJ 500 MG in PREMIX 1 EACH IV SCH (12:11)
[2016-06-13] MEDS: ENOXAPARIN 30 MG/0.3 ML SYRINGE SUBCUT SCH (13:18)
--- NOTE | 2016-06-13 14:43 | Hospitalist Progress Note ---
Assessment and Plan (1) Acute exacerbation of chronic obstructive airways disease Status: Acute Current Visit: No (2) Manic depressive disorder Status: Acute Current Visit: No Qualifiers: Active/Remission status: in remission of unspecified degree Qualified Code( s): F31.70 - Bipolar disorder, currently in remission, most recent episode unspecified (3) Diabetes Status: Chronic Current Visit: No Qualifiers: Diabetes mellitus type: type 2 (4) Diabetic neuropathy Status: Acute Current Visit: No (5) Acute on chronic renal failure Status: Acute Current Visit: Yes (6) Leukocytosis Problem details: Concern for occult infection, on daptomycin and levofloxacin. Pulmonology consult to assist with lung issues. Status: Acute Current Visit : Yes Hospitalist: Subjective Interval history: Patient reports that she feels better today. Says that she is tired and does not want to get her upcoming breathing treatment. Patient has been complaining of frequent falls lately. She reports to me that these falls are mechanical in nature, usually from tripping over a rug. This correlates with her initial physical therapy assessment note, patient reported that she does not use her walker all the time at home and that her house is cluttered. Will need physical therapy at discharge. Exam - Constitutional Vitals: Period Temp Pulse Resp BP Sys/Naqvi Pulse Ox Last 24 Hr 97.4 F-99.5 F 85-115 16-22 117-150/64-86 90-99 General appearance: over weight - Head Head exam: Present: normocephalic, atraumatic - Eye Eye exam: Present: EOMI Pupils: Present: KRISTEL - ENT ENT exam: Present: normal exam - Neck Neck exam: Present: normal inspection - Respiratory Respiratory exam: Present: clear to auscultation bilaterally. Absent: rhonchi, wheezes - Cardiovascular Cardiovascular exam: Present: regular rate and rhythm - GI/Abdominal GI/Abdominal exam: Present: normal bowel sounds, soft. Absent: tenderness, rebound - Extremities Exam Extremities exam: Present: normal inspection - Back Exam Back exam: Present: normal inspection - Neurological Exam Neurological exam: Present: alert, oriented X3 - Psychiatric Psychiatric exam: Present: normal affect, normal mood - Skin Skin exam: Present: warm, intact Results - Labs CBC & BMP: 06/13/16 05:11 06/13/16 05:11 Quality Measures - Stroke Symptom Onset Unknown: No
[2016-06-13] MEDS ORDERED: MAGNESIUM SULF RIDER 2 GM in PREMIX 1 EACH IV PRN (14:45)
[2016-06-13] MEDS ORDERED: MAGNESIUM SULF RIDER 4 GM in PREMIX 1 EACH IV PRN (14:45)
[2016-06-13] MEDS: DILTIAZEM CD 180 MG CAPSULE PO SCH (16:07)
[2016-06-13] MEDS: ONDANSETRON 4 MG/2 ML VIAL IV PRN (16:09)
[2016-06-13] MEDS: FLUoxetine 20 MG CAPSULE PO SCH (21:43)
[2016-06-13] MEDS: ATORVASTATIN 40 MG TABLET PO SCH (21:44)
[2016-06-13] MEDS: ZALEPLON 5 MG CAPSULE PO PRN (21:46)
[2016-06-14] MEDS: ALBUTEROL/IPRATROPIUM 3 ML NEB RESP TX SCH ×6 (02:36→19:36)
[2016-06-14 06:00] LABS: Basophils % 0.1 % (0.0-0.8); Hematocrit 36.5 VOL% (35.7-47.0); Hemoglobin 11.7 GM/DL (12.0-16.0); Immature Granulocytes % 2.5 %; Immature Granulocytes Absolute 0.34 #; Lymphocytes # 0.5 10*3/uL (1.4-4.0); Mean Corpuscular HGB Conc 32.1 GM/DL (32-36); Mean Corpuscular Hemoglobin 28 PG (27-34); Mean Corpuscular Volume 87.7 FL (87-102); Mean Platelet Volume 10.5 FL (9.6-12.0); Monocytes # 0.5 10*3/uL (0.11-0.8); Neutrophils % 89.4 % (38.7-73.9); Platelet Count 247 T/CUMM (130-400); Red Blood Count 4.16 MC/CUMM (3.8-5.5); Red Cell Distribution Width 15.6 % (9.3-17.3); White Blood Count 13.4 T/CUMM (4-12)
[2016-06-14 06:14] LABS: Calcium 8.6 MG/DL (8.5-10.1); Osmolality,Calculated 298.1 MOS/KG (273-304); Potassium 3.9 MMOL/L (3.5-5.1)
[2016-06-14 06:27] LABS: Hypochromasia 1+; Lymphocytes 2 % (20-55); Macrocytosis 1+; Platelet Estimate Adequate; Polychromasia Slight; Segmented Neutrophils 94 % (50-85); Total Cells Counted 100
[2016-06-14] MEDS: BUDESONIDE 0.5 MG/2 ML NEB RESP TX SCH ×2 (08:00→19:35)
[2016-06-14] MEDS: DORNASE ALFA 2.5 MG/2.5 ML VIAL RESP TX SCH ×2 (08:00→19:35)
[2016-06-14] MEDS: LEVOTHYROXINE 100 MCG TABLET PO SCH (09:26)
[2016-06-14] MEDS: MONTELUKAST 10 MG TABLET PO SCH (09:26)
[2016-06-14] MEDS: THEOPHYLLINE ER 300 MG TABLET PO SCH ×2 (09:26→16:24)
[2016-06-14] MEDS: DILTIAZEM CD 180 MG CAPSULE PO SCH (09:26)
[2016-06-14] MEDS: FAMOTIDINE 20 MG TABLET PO SCH ×2 (09:26→21:21)
--- NOTE | 2016-06-14 09:26 | Pulmonology Progress Note ---
Pulmonary - PN: Subj Interval history: Alan Gabriel, ANP-BC, GNP-BC, acting as scribe for Dr. Josh Vasquez This is a 65-year-old [place] female who we saw in initial pulmonary consultation on 06/12/2016. At that time, our impressions were: 1. COPD with bronchospastic disease 2. Acute exacerbation of COPD and bronchospastic disease 3. Tobacco abuse 4. Acute on chronic renal failure 5. Abnormal chest x-ray with increased interstitial markings at both bases. This could be retention of secretions. Other things to keep in mind her bibasilar pneumonia and congestive heart failure. 6. Hypokalemia. 7. Acute urinary tract infection. 8. Diabetes mellitus 06/13/2016. Today's chest x-ray looks better. Heart size is normal. Pulmonary arteries are top normal. No hilar adenopathy. Mediastinum is normal. Patient has some increased interstitial markings in the lingula and at the left base. This could very easily be an early pneumonia. Previously noted increased markings in the right base are about 75% resolved. There is no blunting of the costophrenic angles. I can see no pleural fluid at the bases on lateral film. I do not think today's film represents congestive heart. Cold agglutinins are negative. There are no positive cultures so far. Sputum for Gram stain are pending. Legionella titers pill pending. White blood cell count is dropped from 18,000 414,800 with 83 segs. Sodium is 140. Potassium 3.4. Creatinine is 3.00 with a BUN of 53. 07/11/2016. From a pulmonary standpoint, the patient continues to improve. No chest x-ray was done today. Sputum Gram stain showed few gram-positive cocci in pairs, chains and clusters. At 48 hours there is no growth on culture. Cold agglutinins were negative. Legionella is pending. She is presently being treated with daptomycin and Levaquin. We made no changes to this today. Medications reviewed. Labs were reviewed. White count is 13,400 with 89.4% segs; H&H 11.7/36.5; platelet count 247,000; creatinine has improved to 2.40, BUN 43, electrolytes are normal At admission, TSH was elevated at 4.990 and free T4 was low normal at 0.82. We will repeat these. We suspect that the patient has been noncompliant with taking her medications correctly due to other noncompliance issues. Exam (Progress Note) - Constitutional Vitals: Period Temp Pulse Resp BP Sys/Naqvi Pulse Ox Last 24 Hr 97.5 F-99.1 F 89-112 18-20 122-150/64-89 90-99 Exam: Chest is symmetrical and hyperinflated. Slightly kyphotic. Expiration is prolonged. Markedly less wheeze and congestion. Heart no gallop Abdomen is nontender and nondistended; bowel sounds are positive 4 Lower extremities with nothing to suggest acute deep venous thrombophlebitis Psychiatric oriented 3 Neurologic long tract motor function is intact Plan: Repeat TSH and free T4 today. Continue present treatment. Repeat chest x -ray tomorrow. See orders. Results - Labs CBC & BMP: 06/14/16 05:34 06/14/16 05:34
[2016-06-14] MEDS: INSULIN GLARGINE 100 UNIT/ML SUBCUT SCH (09:27)
[2016-06-14] MEDS: methylPREDNISolone SOD SUC 40 MG/1 ML VIAL IV SCH ×2 (09:28→21:11)
[2016-06-14] MEDS: INSULIN LISPRO 100 UNIT/ML SUBCUT SCH ×4 (09:30→21:10)
[2016-06-14 09:58] LABS: Free T4 (Free Thyroxine) 0.74 NG/DL (0.76-1.46); Thyroid Stimulating Hormone 4.01 uIU/ml (0.358-3.74)
[2016-06-14] MEDS: LORazepam 1 MG TABLET PO PRN ×3 (10:25→21:11)
--- NOTE | 2016-06-14 11:34 | Physician Query Form ---
CLICK EDIT DOCUMENT TO SELECT QUERY ANSWER --> OK --> SIGN Zaria Jauregui RN, CCDS Certified Clinical Consumer Safety Inspector W) [phone] (f) [phone] [email or web address] PROVIDERS: Make your selection(s) from the choices in EACH section by typing an "x" and enter comments in the comment section. Please use your independent medical judgment in providing your response. This request does not imply that any particular answer is desired or expected. CLINICAL INDICATORS: (Providers should not edit this section) Patient admitted with COPD exacerbation, "Uses supplemental O2 @ 2L/min at home ", the patient was admitted and placed on 2 liters per NC. Based on the above, could you clarify the appropriate diagnosis, if significant , that supports the above abnormalities and additional evaluation, monitoring, and/or treatment rendered: ( x) Patient is being treated or monitored for chronic respiratory failure ( ) Patient is not being treated or monitored for chronic respiratory failure ( ) Other, please specify: ( ) Clinically unable to determine COMMENTS: Use of terms such as suspected, likely, or probable (associated with a specific diagnosis that is being evaluated, monitored, or treated as if it exists) are acceptable and can be restated in the discharge summary if not ruled out. MTDD
--- NOTE | 2016-06-14 12:54 | Nephrology Progress Note ---
Nephrology - PN: Subj Interval history: Pt states she feels better. Wants to get woodward out. Creatinine down to 2.4 for eGFR 22cc/min. No uremic symptoms. WBC improved. No N/V. Breathing better. Appreciate pulmonology assistance and expertise. Exam (PN)-Nephrology - Vital Signs Vital signs: Period Temp Pulse Resp BP Sys/Naqvi Pulse Ox Last 24 Hr 97.5 F-98.8 F 83-112 18-20 122-137/64-89 90-99 - General Appearance General appearance: well-developed, well-nourished EENT: ATNC, PERRL, mucous membranes moist, hearing intact, vision intact Neck: no JVD, no thyromegaly Respiratory: no kyphosis, clear Cardiology: no murmurs, no rub, no edema Gastrointestinal: normoactive bowel sounds, no tenderness Integumentary: no rash, warm and dry Neurologic: no focal deficit, no asterixis, alert and oriented x3 Musculoskeletal: no deformities, no erythema Psychiatric: mood/affect appropriate, cooperative - Lab 06/14/16 05:34 06/14/16 05:34 Most recent lab results ABG pH 7.373 (7.35-7.45) 06/09/16 14:05 ABG pCO2 43.6 MM HG (35-48) 06/09/16 14:05 ABG pO2 72.3 MM HG (80-95) L 06/09/16 14:05 ABG HCO3 24.8 MMOL/L (20-26) 06/09/16 14:05 ABG O2 Saturation 93.9 % (95-100) L 06/09/16 14:05 Calcium 8.6 MG/DL (8.5-10.1) 06/14/16 05:34 Magnesium 2.0 MG/DL (1.8-2.4) 06/14/16 05:34 Assessment and Plan (1) Acute kidney injury Problem details: Renal function has improved. No acute indication for renal replacement therapy at this time. Creatinine down to 2.4 from 3.0 yesterday. UOP increasing. Status: Resolved Assessment and plan: Would clamp woodward and see if patient can ambulate to BR with assistance. Concerned due to her frequent falls prior to admission. Discussed with 5E head nurse. If able to ambulate without assitance, can pull woodward. Current Visit: No (2) Hematuria Problem details: Likely due to AIN. Must rule out TCCA bladder in halfway smoker. Counseled her she should quit. Status: Acute Current Visit: Yes (3) Pyuria, sterile Problem details: Likely AIN. Urine eos 95% specific, only 50% sensitive however. Ordered and pending. No renal biopsy indicated at this time. Status: Acute Current Visit: Yes (4) Acute exacerbation of chronic obstructive airways disease Status: Acute Current Visit: No (5) Tobacco use Status: Chronic Current Visit: No (6) Type 2 diabetes mellitus Status: Acute Current Visit: No (7) Nausea Status: Acute Current Visit: No (8) Leukocytosis Problem details: Concern for occult infection, on daptomycin and levofloxacin. Pulmonology consult to assist with lung issues. Status: Acute Current Visit : Yes
[2016-06-14] MEDS: ENOXAPARIN 30 MG/0.3 ML SYRINGE SUBCUT SCH (13:11)
[2016-06-14] MEDS: ONDANSETRON 4 MG/2 ML VIAL IV PRN ×2 (16:42→19:50)
[2016-06-14] MEDS ORDERED: TUBERCULIN SKIN TEST 0.1 ML SYRINGE INTRADERM ONE (17:19)
--- NOTE | 2016-06-14 17:20 | Hospitalist Progress Note ---
Assessment and Plan (1) Acute exacerbation of chronic obstructive airways disease Status: Acute Current Visit: No (2) Manic depressive disorder Status: Acute Current Visit: No Qualifiers: Active/Remission status: in remission of unspecified degree Qualified Code( s): F31.70 - Bipolar disorder, currently in remission, most recent episode unspecified (3) Diabetes Status: Chronic Current Visit: No Qualifiers: Diabetes mellitus type: type 2 (4) Diabetic neuropathy Status: Acute Current Visit: No (5) Acute on chronic renal failure Status: Acute Current Visit: Yes (6) Leukocytosis Problem details: Concern for occult infection, on daptomycin and levofloxacin. Pulmonology consult to assist with lung issues. Status: Acute Current Visit : Yes Hospitalist: Subjective Interval history: No acute events overnight. Feels better today. Seen today sitting in chair without supplemental oxygen. Creatinine and wbc count are improving. Hopeful for discharge soon. Working on swing bed placement. Exam - Constitutional Vitals: Period Temp Pulse Resp BP Sys/Naqvi Pulse Ox Last 24 Hr 97.5 F-98.8 F 77-111 18-20 122-137/64-81 90-99 General appearance: over weight - Head Head exam: Present: normocephalic, atraumatic - Eye Eye exam: Present: EOMI Pupils: Present: KRISTEL - ENT ENT exam: Present: normal exam - Neck Neck exam: Present: normal inspection - Respiratory Respiratory exam: Present: clear to auscultation bilaterally. Absent: rhonchi, wheezes - Cardiovascular Cardiovascular exam: Present: regular rate and rhythm - GI/Abdominal GI/Abdominal exam: Present: normal bowel sounds, soft. Absent: tenderness, rebound - Extremities Exam Extremities exam: Present: normal inspection - Back Exam Back exam: Present: normal inspection - Neurological Exam Neurological exam: Present: alert, oriented X3 - Psychiatric Psychiatric exam: Present: normal affect, normal mood - Skin Skin exam: Present: warm, intact Results - Labs CBC & BMP: 06/14/16 05:34 06/14/16 05:34 Quality Measures - Stroke Symptom Onset Unknown: No
[2016-06-14] MEDS: FLUoxetine 20 MG CAPSULE PO SCH (21:12)
[2016-06-14] MEDS: ATORVASTATIN 40 MG TABLET PO SCH (21:12)
[2016-06-14] MEDS: ZALEPLON 5 MG CAPSULE PO PRN (23:35)
[2016-06-15] MEDS: ALBUTEROL/IPRATROPIUM 3 ML NEB RESP TX SCH ×6 (00:30→19:03)
[2016-06-15 06:32] LABS: Basophils % 0.2 % (0.0-0.8); Hematocrit 36.5 VOL% (35.7-47.0); Hemoglobin 11.6 GM/DL (12.0-16.0); Immature Granulocytes Absolute 0.29 #; Lymphocytes # 0.6 10*3/uL (1.4-4.0); Lymphocytes % 4.4 % (21.3-54.2); Mean Corpuscular HGB Conc 31.8 GM/DL (32-36); Mean Corpuscular Hemoglobin 28 PG (27-34); Mean Corpuscular Volume 87.5 FL (87-102); Mean Platelet Volume 10.6 FL (9.6-12.0); Monocytes # 0.6 10*3/uL (0.11-0.8); Monocytes % 4.5 % (1.7-12.7); Neutrophils # 12.8 10*3/uL (1.4-7.4); Neutrophils % 88.9 % (38.7-73.9); Platelet Count 237 T/CUMM (130-400); Red Blood Count 4.17 MC/CUMM (3.8-5.5); Red Cell Distribution Width 15.5 % (9.3-17.3); White Blood Count 14.4 T/CUMM (4-12)
[2016-06-15 06:59] LABS: Calcium 9.3 MG/DL (8.5-10.1); Magnesium 1.8 MG/DL (1.8-2.4); Osmolality,Calculated 301.1 MOS/KG (273-304); Potassium 3.7 MMOL/L (3.5-5.1)
[2016-06-15 07:10] LABS: Lymphocytes 2 % (20-55); Segmented Neutrophils 93 % (50-85); Total Cells Counted 100
[2016-06-15 07:11] LABS: Hypochromasia Slight; Platelet Estimate Normal
[2016-06-15] MEDS: BUDESONIDE 0.5 MG/2 ML NEB RESP TX SCH ×2 (07:55→19:03)
[2016-06-15] MEDS: DORNASE ALFA 2.5 MG/2.5 ML VIAL RESP TX SCH ×2 (07:56→19:03)
--- NOTE | 2016-06-15 08:00 | XRay Report ---
PA and lateral chest. Indication: COPD. Cough. Comparison: June 13, 2016. The heart is normal in size. The lung jolley are hyperexpanded. The mediastinal contours are unremarkable. Calcified lymph nodes are seen in the right infrahilum. There is interstitial prominence throughout the lung jolley consistent with fibrosis. There is multifocal interstitial opacity in the left lung base and lateral aspect of the right base, increased over baseline but not significantly changed from recent previous. Degenerative changes are noted within the spinal column. There has been previous surgery at the lower cervical spine. Impression: COPD, with interstitial infiltrates at the bases, superimposed, not significantly changed from recent previous. PROCEDURE INTERPRETED AT [facility] Final Report Signed by: Dr. Rasheeda Piña
[2016-06-15] MEDS: methylPREDNISolone SOD SUC 40 MG/1 ML VIAL IV SCH ×2 (09:15→21:50)
[2016-06-15] MEDS: THEOPHYLLINE ER 300 MG TABLET PO SCH ×2 (09:17→17:07)
[2016-06-15] MEDS: INSULIN LISPRO 100 UNIT/ML SUBCUT SCH ×4 (09:18→21:50)
[2016-06-15] MEDS: DILTIAZEM CD 180 MG CAPSULE PO SCH (09:18)
[2016-06-15] MEDS: INSULIN GLARGINE 100 UNIT/ML SUBCUT SCH (09:18)
[2016-06-15] MEDS: FAMOTIDINE 20 MG TABLET PO SCH ×2 (09:18→21:51)
[2016-06-15] MEDS: LEVOTHYROXINE 100 MCG TABLET PO SCH (09:18)
[2016-06-15] MEDS: MONTELUKAST 10 MG TABLET PO SCH (09:18)
--- NOTE | 2016-06-15 10:06 | Pulmonology Progress Note ---
Pulmonary - PN: Subj Interval history: Alan Gabriel, ANP-BC, GNP-BC, acting as scribe for Dr. Josh Vasquez This is a 65-year-old [place] female who we saw in initial pulmonary consultation on 06/12/2016. At that time, our impressions were: 1. COPD with bronchospastic disease 2. Acute exacerbation of COPD and bronchospastic disease 3. Tobacco abuse 4. Acute on chronic renal failure 5. Abnormal chest x-ray with increased interstitial markings at both bases. This could be retention of secretions. Other things to keep in mind her bibasilar pneumonia and congestive heart failure. 6. Hypokalemia. 7. Acute urinary tract infection. 8. Diabetes mellitus 06/13/2016. Today's chest x-ray looks better. Heart size is normal. Pulmonary arteries are top normal. No hilar adenopathy. Mediastinum is normal. Patient has some increased interstitial markings in the lingula and at the left base. This could very easily be an early pneumonia. Previously noted increased markings in the right base are about 75% resolved. There is no blunting of the costophrenic angles. I can see no pleural fluid at the bases on lateral film. I do not think today's film represents congestive heart. Cold agglutinins are negative. There are no positive cultures so far. Sputum for Gram stain are pending. Legionella titers pill pending. White blood cell count is dropped from 18,000 414,800 with 83 segs. Sodium is 140. Potassium 3.4. Creatinine is 3.00 with a BUN of 53. 06/14/2016. From a pulmonary standpoint, the patient continues to improve. No chest x-ray was done today. Sputum Gram stain showed few gram-positive cocci in pairs, chains and clusters. At 48 hours there is no growth on culture. Cold agglutinins were negative. Legionella is pending. She is presently being treated with daptomycin and Levaquin. We made no changes to this today. 06/15/2016. Patient was seen today along with LORRAINE Bess. She was sitting on the side of the bed and states that her breathing has improved. Concern understanding that case management is working on swing bed placement. Today's chest x-ray shows small infiltrates in the lateral basilar segment of the left lower lobe as well as lingula. There are no new cultures. She has remained afebrile. She is being treated with daptomycin and Levaquin. Medications reviewed. We made no changes today. Labs were reviewed. White count is 14,400 with 88.9% segs; H&H 11.6/36.5; platelet count 237,000; creatinine further improved to 2.10, BUN 46, electrolytes are normal At admission, TSH was elevated at 4.990 and free T4 was low normal at 0.82. We repeated these because we suspected that the patient had been noncompliant with taking her medications correctly due to other noncompliance issues. On recheck , TSH was elevated at 4.010 and free T4 was still low at 0.74. Exam (Progress Note) - Constitutional Vitals: Period Temp Pulse Resp BP Sys/Naqvi Pulse Ox Last 24 Hr 97.7 F-98.8 F 24-93 16-18 99-137/53-77 92-96 Exam: Chest is symmetrical and hyperinflated. Slightly kyphotic. Expiration is prolonged. Markedly less wheeze and congestion. Heart no gallop Abdomen is nontender and nondistended; bowel sounds are positive 4 Lower extremities with nothing to suggest acute deep venous thrombophlebitis Psychiatric oriented 3 Neurologic long tract motor function is intact Plan: Continue present treatment. Agree with swing bed placement at discharge. See orders. Results - Labs CBC & BMP: 06/15/16 06:12 06/15/16 06:12
[2016-06-15] MEDS: LEVOFLOXACIN INJ 500 MG in PREMIX 1 EACH IV SCH (12:22)
[2016-06-15] MEDS: ENOXAPARIN 30 MG/0.3 ML SYRINGE SUBCUT SCH (13:31)
--- NOTE | 2016-06-15 14:04 | Nephrology Progress Note ---
Nephrology - PN: Subj Interval history: Pt tearful on rounds. Says she doesn't know why, "I feel all twisted up inside" . Creatinine continues to improve. Down to 2.1 from 2.4 yesterday. Ambulating to bathroom without falls, woodward catheter removed. Exam (PN)-Nephrology - Vital Signs Vital signs: Period Temp Pulse Resp BP Sys/Naqvi Pulse Ox Last 24 Hr 97.7 F-98.8 F 24-93 16-18 99-156/53-94 92-96 - General Appearance General appearance: well-developed, chronically ill (very depressed and crying) EENT: ATNC, mucous membranes dry, hearing intact, vision intact Neck: no JVD, supple Respiratory: no kyphosis, course breath sounds Cardiology: no murmurs, no rub Gastrointestinal: normoactive bowel sounds, no tenderness Integumentary: no rash, warm and dry Neurologic: no focal deficit, no asterixis, alert and oriented x3 Musculoskeletal: no deformities, no erythema Psychiatric: depressed, cooperative - Lab 06/15/16 06:12 06/15/16 06:12 Most recent lab results ABG pH 7.373 (7.35-7.45) 06/09/16 14:05 ABG pCO2 43.6 MM HG (35-48) 06/09/16 14:05 ABG pO2 72.3 MM HG (80-95) L 06/09/16 14:05 ABG HCO3 24.8 MMOL/L (20-26) 06/09/16 14:05 ABG O2 Saturation 93.9 % (95-100) L 06/09/16 14:05 Calcium 9.3 MG/DL (8.5-10.1) 06/15/16 06:12 Magnesium 1.8 MG/DL (1.8-2.4) 06/15/16 06:12 Assessment and Plan (1) Acute kidney injury Problem details: UOP adequate, returning to baseline creatinine. Would avoid PPIs and maxzide in the future due to interstitial nephritis. Subsequent exposures tend to elicit a more profound reaction and can result in permanent renal damage. Status: Resolved Assessment and plan: Stable for transfer to swing bed from nephrology standpoint after major depressive episode is stabilized. Current Visit: No (2) Hematuria Problem details: Likely due to AIN. 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 Counseled her she should quit. Status: Acute Current Visit: Yes (3) Pyuria, sterile Problem details: Likely AIN. Urine eos 95% specific, only 50% sensitive however. Ordered and pending. No renal biopsy indicated at this time. Status: Acute Current Visit: Yes (4) Acute exacerbation of chronic obstructive airways disease Status: Acute Current Visit: No (5) Tobacco use Status: Chronic Current Visit: No (6) Type 2 diabetes mellitus Status: Acute Current Visit: No (7) Nausea Status: Acute Current Visit: No (8) Leukocytosis Status: Acute Current Visit: Yes
[2016-06-15] MEDS: ONDANSETRON 4 MG/2 ML VIAL IV PRN ×2 (15:28→22:13)
--- NOTE | 2016-06-15 15:47 | Hospitalist Progress Note ---
Assessment and Plan (1) Acute exacerbation of chronic obstructive airways disease Status: Acute Current Visit: No (2) Manic depressive disorder Status: Acute Current Visit: No Qualifiers: Active/Remission status: in remission of unspecified degree Qualified Code( s): F31.70 - Bipolar disorder, currently in remission, most recent episode unspecified (3) Diabetes Status: Chronic Current Visit: No Qualifiers: Diabetes mellitus type: type 2 (4) Diabetic neuropathy Status: Acute Current Visit: No (5) Acute on chronic renal failure Status: Acute Current Visit: Yes (6) Leukocytosis Status: Acute Current Visit: Yes Hospitalist: Subjective Interval history: No acute events overnight. Respiratory status is better. Patient is tearful on rounds, reports that she wants to go home. She has received daptomycin for roughly 7 days and levaquin for roughly 5 days, hopefully can discontinue soon. Working on placement now. Exam - Constitutional Vitals: Period Temp Pulse Resp BP Sys/Naqvi Pulse Ox Last 24 Hr 97.7 F-98.8 F 24-93 16-18 99-156/53-94 92-96 General appearance: over weight - Head Head exam: Present: normocephalic, atraumatic - Eye Eye exam: Present: EOMI Pupils: Present: KRISTEL - ENT ENT exam: Present: normal exam - Neck Neck exam: Present: normal inspection - Respiratory Respiratory exam: Present: clear to auscultation bilaterally. Absent: rhonchi, wheezes - Cardiovascular Cardiovascular exam: Present: regular rate and rhythm - GI/Abdominal GI/Abdominal exam: Present: normal bowel sounds, soft. Absent: tenderness, rebound - Extremities Exam Extremities exam: Present: normal inspection - Back Exam Back exam: Present: normal inspection - Neurological Exam Neurological exam: Present: alert, oriented X3 - Psychiatric Psychiatric exam: Present: depressed, flat affect - Skin Skin exam: Present: warm, intact Results - Labs CBC & BMP: 06/15/16 06:12 06/15/16 06:12 Quality Measures - Stroke Symptom Onset Unknown: No
[2016-06-15] MEDS ORDERED: traZODone 50 MG TABLET PO SCH (21:00)
[2016-06-15] MEDS: LORazepam 1 MG TABLET PO PRN (21:50)
[2016-06-15] MEDS: ATORVASTATIN 40 MG TABLET PO SCH (21:51)
[2016-06-15] MEDS: FLUoxetine 20 MG CAPSULE PO SCH (21:51)
[2016-06-16] MEDS: ALBUTEROL/IPRATROPIUM 3 ML NEB RESP TX SCH ×4 (00:05→10:55)
[2016-06-16] MEDS: BUDESONIDE 0.5 MG/2 ML NEB RESP TX SCH (07:09)
[2016-06-16] MEDS: DORNASE ALFA 2.5 MG/2.5 ML VIAL RESP TX SCH (07:10)
[2016-06-16] MEDS: INSULIN LISPRO 100 UNIT/ML SUBCUT SCH ×2 (07:35→13:01)
[2016-06-16 08:08] LABS: Basophils % 0.1 % (0.0-0.8); Hematocrit 34.1 VOL% (35.7-47.0); Hemoglobin 11.3 GM/DL (12.0-16.0); Immature Granulocytes Absolute 0.33 #; Lymphocytes # 0.7 10*3/uL (1.4-4.0); Lymphocytes % 4.2 % (21.3-54.2); Mean Corpuscular HGB Conc 33.1 GM/DL (32-36); Mean Corpuscular Hemoglobin 28 PG (27-34); Mean Platelet Volume 10.7 FL (9.6-12.0); Monocytes # 1.1 10*3/uL (0.11-0.8); Monocytes % 6.6 % (1.7-12.7); Neutrophils # 14.7 10*3/uL (1.4-7.4); Neutrophils % 87.1 % (38.7-73.9); Platelet Count 235 T/CUMM (130-400); Red Blood Count 4.01 MC/CUMM (3.8-5.5); Red Cell Distribution Width 15.4 % (9.3-17.3); White Blood Count 16.8 T/CUMM (4-12)
[2016-06-16 08:31] LABS: Calcium 9.2 MG/DL (8.5-10.1); Magnesium 1.5 MG/DL (1.8-2.4); Osmolality,Calculated 299.3 MOS/KG (273-304); Potassium 3.2 MMOL/L (3.5-5.1)
[2016-06-16] MEDS: INSULIN GLARGINE 100 UNIT/ML SUBCUT SCH (08:54)
[2016-06-16] MEDS: methylPREDNISolone SOD SUC 40 MG/1 ML VIAL IV SCH (08:55)
[2016-06-16] MEDS: MONTELUKAST 10 MG TABLET PO SCH (08:56)
[2016-06-16] MEDS: THEOPHYLLINE ER 300 MG TABLET PO SCH (08:56)
[2016-06-16] MEDS: LEVOTHYROXINE 100 MCG TABLET PO SCH (08:56)
[2016-06-16] MEDS: FAMOTIDINE 20 MG TABLET PO SCH (08:56)
[2016-06-16] MEDS: DILTIAZEM CD 180 MG CAPSULE PO SCH (08:58)
[2016-06-16] MEDS: LORazepam 1 MG TABLET PO PRN (09:50)
[2016-06-16] MEDS ORDERED: BISACODYL 10 MG SUPP RECTAL ONE (10:19)
[2016-06-16] MEDS ORDERED: INSULIN GLARGINE 100 UNIT/ML SUBCUT SCH (10:20)
--- NOTE | 2016-06-16 10:22 | Pulmonology Progress Note ---
Exam (Progress Note) - Constitutional Vitals: Period Temp Pulse Resp BP Sys/Naqvi Pulse Ox Last 24 Hr 98 F-99 F 80-96 16-20 110-158/57-94 90-100 Results - Labs CBC & BMP: 06/16/16 07:47 06/16/16 07:47 Specialty Discharge - Follow Up or Referrals
--- NOTE | 2016-06-16 10:29 | Pulmonology Progress Note ---
Pulmonary - PN: Subj Interval history: This is a 65-year-old [place] female who we saw in initial pulmonary consultation on 06/12/2016. At that time, our impressions were: 1. COPD with bronchospastic disease 2. Acute exacerbation of COPD and bronchospastic disease 3. Tobacco abuse 4. Acute on chronic renal failure 5. Abnormal chest x-ray with increased interstitial markings at both bases. This could be retention of secretions. Other things to keep in mind her bibasilar pneumonia and congestive heart failure. 6. Hypokalemia. 7. Acute urinary tract infection. 8. Diabetes mellitus 06/13/2016. Today's chest x-ray looks better. Heart size is normal. Pulmonary arteries are top normal. No hilar adenopathy. Mediastinum is normal. Patient has some increased interstitial markings in the lingula and at the left base. This could very easily be an early pneumonia. Previously noted increased markings in the right base are about 75% resolved. There is no blunting of the costophrenic angles. I can see no pleural fluid at the bases on lateral film. I do not think today's film represents congestive heart. Cold agglutinins are negative. There are no positive cultures so far. Sputum for Gram stain are pending. Legionella titers pill pending. White blood cell count is dropped from 18,000 414,800 with 83 segs. Sodium is 140. Potassium 3.4. Creatinine is 3.00 with a BUN of 53. 06/14/2016. From a pulmonary standpoint, the patient continues to improve. No chest x-ray was done today. Sputum Gram stain showed few gram-positive cocci in pairs, chains and clusters. At 48 hours there is no growth on culture. Cold agglutinins were negative. Legionella is pending. She is presently being treated with daptomycin and Levaquin. We made no changes to this today. 06/15/2016. Patient was seen today along with LORRAINE Bess. She was sitting on the side of the bed and states that her breathing has improved. Concern understanding that case management is working on swing bed placement. Today's chest x-ray shows small infiltrates in the lateral basilar segment of the left lower lobe as well as lingula. There are no new cultures. She has remained afebrile. She is being treated with daptomycin and Levaquin. Medications reviewed. We made no changes today. Labs were reviewed. White count is 14,400 with 88.9% segs; H&H 11.6/36.5; platelet count 237,000; creatinine further improved to 2.10, BUN 46, electrolytes are normal At admission, TSH was elevated at 4.990 and free T4 was low normal at 0.82. We repeated these because we suspected that the patient had been noncompliant with taking her medications correctly due to other noncompliance issues. On recheck , TSH was elevated at 4.010 and free T4 was still low at 0.74. 06/16/2016. This patient continues to improve from a pulmonary standpoint. I am switching her potassium and magnesium replacement protocol to p.o. From a medical standpoint she is stable. She has significant depression. On physical exam her affect is flat. She is ready for geriatric psych transfer. Labs been reviewed. Legionella titer turned out to be negative. Cold agglutinins were negative Exam (Progress Note) - Constitutional Vitals: Period Temp Pulse Resp BP Sys/Naqvi Pulse Ox Last 24 Hr 97.7 F-98.8 F 24-93 16-18 99-137/53-77 92-96 Exam: Psychiatric. Oriented 3. Flat affect. Face. Symmetrical. Lips and tongue are normal. Neck. Symmetrical with no meningismus. Lymphatics. No submandibular cervical supraclavicular adenopathy Chest is symmetrical and hyperinflated. Slightly kyphotic. Expiration is prolonged. Markedly less wheeze and congestion. Heart no gallop Abdomen is nontender and nondistended; bowel sounds are positive 4 Lower extremities with nothing to suggest acute deep venous thrombophlebitis Neurologic long tract motor function is intact The remainder of the physical exam is noncontributory Plan. 1. I agree with transfer to geriatric psych. 2. Convert potassium and magnesium replacement to p.o. 3. Continue Singulair 10 mg daily 4. Patient's on Solu-Medrol 20 mg p.o. every 12 hours for her wheezing. I think we could treat her with 10 mg of prednisone in the morning around 6 or 7 AM and 10 mg around noon time. I suspect that after 7-10 days this could be reduced to 10 mg daily for 2 weeks and then 10 every other day for another 2 weeks. 5. I suggested we continue Levaquin 250 mg p.o. daily for another 7 days. 6. The patient is also receiving daptomycin. I am not sure why this is being given. This is not used to treat pneumonias. From my standpoint he can be stopped. 7. I will sign off. Reconsult as needed. Exam (Progress Note) - Constitutional Vitals: Period Temp Pulse Resp BP Sys/Naqvi Pulse Ox Last 24 Hr 98 F-99 F 80-96 16-20 110-158/57-94 90-100 Results - Labs CBC & BMP: 06/16/16 07:47 06/16/16 07:47 Specialty Discharge - Follow Up or Referrals
[2016-06-16] MEDS ORDERED: POTASSIUM CHLORIDE 20 MEQ TABLET PO SCH (10:30)
[2016-06-16] MEDS ORDERED: MAGNESIUM CHLORIDE 64 MG TABLET PO SCH (10:30)
--- NOTE | 2016-06-16 10:42 | Discharge Summary ---
Hospital Course - Hospital Course Hospital Course: Ms. Rodrigues is a 65 year old female with a history of hypertension, COPD, tobaccoism and chronic pain who presented to the ED with complaints of multiple falls and ataxia x 2 weeks. The patient stated that, most recently, she fell last night while attempting to sit on the commode. She lost her balance and fell onto the floor. She admitted to bouts of dizziness and blurred vision, increased shortness of breath with associated productive cough. She walks with the assistance of a walker and reports that she has hardwood floors throughout her house. She appeared confused and in moderate distress as she began to cry several times throughout the interview when describing her falling episodes stating "I just keep falling and I don't know why". Otherwise, she has no other complaints. She admits to smoking 2-3 packs of cigarettes per day but refuses a nicotine patch while hospitalized. She denies alcohol use. She was admitted to the hospital medicine service for acute renal failure secondary to acute interstitial nephritis secondary to Maxide and Protonix. Nephrology was consulted. Renal function has continued to improve. During admission patient also treated for COPD exacerbation, pulmonary was consulted. She will be discharged on prednisone and levaquin. She does have leukocytosis, most likely due to steroid use. Patient has remained depressed throughout admission with many crying episodes. She is now medically stable. She has now reached maximum benefit of inpatient stay and will be discharged to [facility]. - Time spent with patient Time with patient DS: Less than 30 minutes Diagnosis - Discharge Diagnosis (1) Acute exacerbation of chronic obstructive airways disease Status: Acute (2) Manic depressive disorder Status: Acute (3) Diabetes Status: Chronic (4) Diabetic neuropathy Status: Acute (5) Acute on chronic renal failure Status: Acute (6) Leukocytosis Status: Acute Specialty Discharge - Follow Up or Referrals Discharge Plan - Discharge Data Disposition: Disch/Xfer to Psych Hos Condition at Discharge: Stable Discharge Diet: diabetic diet Activity: increase activity as tolerated Hygiene: no restrictions Weight Bearing at Discharge: weight bear as tolerated Contact your physician if you experience:: fever over 101, Shortness of breath - Discharge Medications New Insulin Glargine [Lantus] 13 unit SUBCUT DAILY unit LORazepam TAB [Ativan Tab] 1 mg PO TID PRN #0 tablet PRN Reason: Anxiety Levofloxacin Tab [Levaquin Tab] 250 mg PO DAILY #7 tablet Potassium Chloride Cap/Tab [K Dur] 20 meq PO BID tablet predniSONE TAB [PredniSONE] 10 mg PO BID #35 tablet traZODone [Desyrel] 100 mg PO BEDTIME tablet Dornase Wilfred [Pulmozyme] 2.5 mg RESP TX RT Q12H #1 vial Magnesium Chloride [Slow Mag] 64 mg PO BID tablet Continue Atorvastatin [Lipitor] 40 mg PO BEDTIME tablet Ipratropium/Albuterol Inhaler [Combivent Respimat Inhaler] 2 puffs INH Q6HR PRN #0 PRN Reason: Shortness Of Breath Albuterol/Ipratropium Neb [Duoneb] 3 ml RESP TX RT Q4H 90 Days dilTIAZem HCl [Diltiazem 24Hr ER] 360 mg PO DAILY LORazepam TAB [Ativan Tab] 1 - 2 mg PO TID PRN PRN Reason: Anxiety metFORMIN [Glucophage] 500 mg PO QAM Levothyroxine Tab [Synthroid Tab] 150 mcg PO DAILY@0700 Theophylline ER Tab (24 Hr) 400 mg PO DAILY W/BREAKFAST Allopurinol 1 tablet PO DAILY FLUoxetine [PROzac] 40 mg PO BEDTIME Theophylline ER Tab 300 mg PO BID W/MEALS Levothyroxine Sodium 100 mcg PO DAILY Montelukast Tab [Singulair Tab] 10 mg PO DAILY tablet Discontinued Magnesium Oxide 400 mg PO DAILY Potassium Chloride 20 meq PO DAILY Triamterene/Hctz 75-50 Tab [Maxzide 75-50] 1 tablet PO DAILY Trazodone HCl 100 mg PO BEDTIME PRN PRN Reason: Insomnia - Follow Up or Referral - Forms/Instructions Instructions: Urinary Tract Infection in Women (DC), Renal Failure Diet (DC), Acute Hematuria (DC) Exam - Constitutional Vitals: Period Temp Pulse Resp BP Sys/Naqvi Pulse Ox Last 24 Hr 98 F-99 F 80-96 16-20 110-158/57-94 90-100 General appearance: over weight - Head Head exam: Present: normocephalic, atraumatic - Eye Eye exam: Present: EOMI Pupils: Present: KRISTEL - ENT ENT exam: Present: normal exam - Neck Neck exam: Present: normal inspection - Respiratory Respiratory exam: Present: clear to auscultation bilaterally. Absent: rhonchi, wheezes - Cardiovascular Cardiovascular exam: Present: regular rate and rhythm - GI/Abdominal GI/Abdominal exam: Present: normal bowel sounds, soft. Absent: tenderness, rebound - Extremities Exam Extremities exam: Present: normal inspection - Back Exam Back exam: Present: normal inspection - Neurological Exam Neurological exam: Present: alert, oriented X3 - Psychiatric Psychiatric exam: Present: depressed, flat affect - Skin Skin exam: Present: warm, intact Discharge Results Labs on day of discharge: Labs from last 24 hours 06/16/16 06/16/16 06/16/16 07:47 07:47 07:18 WBC 16.8 H RBC 4.01 Hgb 11.3 L Hct 34.1 L MCV 85.0 L MCH 28 MCHC 33.1 RDW 15.4 Plt Count 235 MPV 10.7 Neut % (Auto) 87.1 H Lymph % (Auto) 4.2 L Zavala % (Auto) 6.6 Eos % (Auto) 0.0 Baso % (Auto) 0.1 Neut # (Auto) 14.7 H Lymph # (Auto) 0.7 L Zavala # (Auto) 1.1 H Eos # (Auto) 0.0 Baso # (Auto) 0.0 Immature Gran % 2.0 Nucleated RBC % 0.0 Immature Gran # 0.33 Nucleated RBCs # 0.00 Sodium 141 Potassium 3.2 L Chloride 105 Carbon Dioxide 26 Anion Gap 13.2 BUN 42 H Creatinine 1.90 H GFR Calculation 30 BUN/Creatinine Ratio 22.00 H Glucose 251 H POC Glucose 238 H Calculated Osmolality 299.3 Calcium 9.2 Magnesium 1.5 L Legionella pneumophila Ab 06/15/16 06/15/16 06/15/16 19:43 16:12 11:15 WBC RBC Hgb Hct MCV MCH MCHC RDW Plt Count MPV Neut % (Auto) Lymph % (Auto) Zavala % (Auto) Eos % (Auto) Baso % (Auto) Neut # (Auto) Lymph # (Auto) Zavala # (Auto) Eos # (Auto) Baso # (Auto) Immature Gran % Nucleated RBC % Immature Gran # Nucleated RBCs # Sodium Potassium Chloride Carbon Dioxide Anion Gap BUN Creatinine GFR Calculation BUN/Creatinine Ratio Glucose POC Glucose 239 H 241 H 175 H Calculated Osmolality Calcium Magnesium Legionella pneumophila Ab 06/12/16 06:27 WBC RBC Hgb Hct MCV MCH MCHC RDW Plt Count MPV Neut % (Auto) Lymph % (Auto) Zavala % (Auto) Eos % (Auto) Baso % (Auto) Neut # (Auto) Lymph # (Auto) Zavala # (Auto) Eos # (Auto) Baso # (Auto) Immature Gran % Nucleated RBC % Immature Gran # Nucleated RBCs # Sodium Potassium Chloride Carbon Dioxide Anion Gap BUN Creatinine GFR Calculation BUN/Creatinine Ratio Glucose POC Glucose Calculated Osmolality Calcium Magnesium Legionella pneumophila Ab Negative DS: Provider Date of admission: 06/09/16 12:14 Primary care physician: . No PCP Attending physician on admission: Debra Harvey MD Consults: 06/09/16 13:11 Consult to Physician [CONS] Routine Comment: renal failure, on metformin Consulting Provider: Kameron Serrano When should Consulting Provider be notified: Jenny Person Notified: Leslee Date Notified: 06/09/16 Time Notified: 15:37 Consult Notification Comment: 06/09/16 13:16 Consult to Occupational Therapy [CONS] Routine Reason for Occupational Therapy: Weakness Consult to Physical Therapy [CONS] Routine Reason for Physical Therapy: Weakness 06/09/16 13:24 Consult to Pharmacy [CONS] Routine Reason for Pharmacy Consult: Other Comment: levaquin and daptomycin 06/09/16 14:58 Consult to Pharmacy [CONS] Routine Reason for Pharmacy Consult: Adjust Meds Renal Funct 06/09/16 15:15 Consult to Dietitian [CONS] Routine Reason for Dietitian: Other 06/12/16 11:42 Consult to Physician [CONS] Routine Comment: Consulting Provider: Josh Vasquez Person Notified: AWARE Consult Notification Comment: left message on Mayela rodriguez to call me back Discharging clinician: Lidia Galvez MD
[2016-06-16 11:38] VITALS: BP 122/86
[2016-06-16] MEDS: ENOXAPARIN 30 MG/0.3 ML SYRINGE SUBCUT SCH (13:02)
== END 2016-06-16 13:05 | DRG 683 ==
LOC: EDUNIT# → N.ED 10:28 → SUATTDRO 12:14 → N.EDINP 12:14 → N.5E 14:46
PROVIDERS: ADMIT Internal Medicine; ATTEND Internal Medicine

== ENCOUNTER 2016-06-26 14:36 | Inpatient (IN) ==
[2016-06-26] MEDS ORDERED: diphenhydrAMINE CAP 25 MG CAPSULE PO PRN (14:40)
[2016-06-26] MEDS ORDERED: guaiFENesin/DM ER 600-30 MG TABLET PO PRN (14:40)
[2016-06-26] MEDS ORDERED: ACETAMINOPHEN 325 MG TABLET PO PRN ×2 (14:40)
[2016-06-26] MEDS ORDERED: DOCUSATE SODIUM 100 MG CAPSULE PO PRN (14:40)
[2016-06-26] MEDS ORDERED: ALBUTEROL/IPRATROPIUM 3 ML NEB RESP TX PRN (16:41)
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
[2016-06-26] MEDS: DILTIAZEM CD 180 MG CAPSULE PO SCH (17:36)
[2016-06-26] MEDS: MONTELUKAST 10 MG TABLET PO SCH (17:36)
[2016-06-26] MEDS: LEVOTHYROXINE 100 MCG TABLET PO SCH (17:36)
[2016-06-26] MEDS: THEOPHYLLINE ER 300 MG TABLET PO SCH (17:38)
[2016-06-26] MEDS: SODIUM CHLORIDE 0.9% 1,000 ML IV SCH (17:45)
[2016-06-26] MEDS: ONDANSETRON 4 MG/2 ML VIAL IV PRN ×2 (17:45→20:45)
[2016-06-26] MEDS: cefTRIAXone 1,000 MG in SODIUM CHLORIDE 0.9% 100 ML IV SCH (17:47)
[2016-06-26] MEDS: ENOXAPARIN 30 MG/0.3 ML SYRINGE SUBCUT SCH (18:04)
[2016-06-26] MEDS: PANTOPRAZOLE 40 MG TABLET PO SCH (18:04)
[2016-06-26] MEDS: INSULIN GLARGINE 100 UNIT/ML SUBCUT SCH (18:54)
[2016-06-26] MEDS: ALBUTEROL/IPRATROPIUM 3 ML NEB RESP TX SCH (19:22)
[2016-06-26] MEDS: DORNASE ALFA 2.5 MG/2.5 ML VIAL RESP TX SCH (19:22)
[2016-06-26] MEDS: FLUoxetine 20 MG CAPSULE PO SCH (21:11)
[2016-06-26] MEDS: MAGNESIUM CHLORIDE 64 MG TABLET PO SCH (21:11)
[2016-06-26] MEDS: predniSONE 10 MG TABLET PO SCH (21:11)
[2016-06-26] MEDS: POTASSIUM CHLORIDE 20 MEQ TABLET PO SCH (21:12)
[2016-06-26] MEDS: ATORVASTATIN 40 MG TABLET PO SCH (21:12)
[2016-06-27] MEDS: ALBUTEROL/IPRATROPIUM 3 ML NEB RESP TX SCH ×6 (00:24→21:02)
[2016-06-27] MEDS: SODIUM CHLORIDE 0.9% 1,000 ML IV SCH ×2 (02:18→14:05)
[2016-06-27 04:56] LABS: Basophils % 0.1 % (0.0-0.8); Eosinophils % 0.1 % (0.00-10.9); Hematocrit 32.5 VOL% (35.7-47.0); Hemoglobin 10.8 GM/DL (12.0-16.0); Immature Granulocytes % 1.6 %; Immature Granulocytes Absolute 0.21 #; Lymphocytes # 0.7 10*3/uL (1.4-4.0); Lymphocytes % 5.1 % (21.3-54.2); Mean Corpuscular HGB Conc 33.2 GM/DL (32-36); Mean Corpuscular Hemoglobin 28 PG (27-34); Mean Corpuscular Volume 85.3 FL (87-102); Mean Platelet Volume 11.3 FL (9.6-12.0); Monocytes # 0.8 10*3/uL (0.11-0.8); Monocytes % 6.1 % (1.7-12.7); Neutrophils # 11.7 10*3/uL (1.4-7.4); Platelet Count 187 T/CUMM (130-400); Red Blood Count 3.81 MC/CUMM (3.8-5.5); Red Cell Distribution Width 15.4 % (9.3-17.3); White Blood Count 13.4 T/CUMM (4-12)
[2016-06-27 05:22] LABS: Calcium 8.9 MG/DL (8.5-10.1); Osmolality,Calculated 285.1 MOS/KG (273-304); Potassium 3.7 MMOL/L (3.5-5.1)
[2016-06-27] MEDS: DORNASE ALFA 2.5 MG/2.5 ML VIAL RESP TX SCH ×2 (07:01→21:02)
--- NOTE | 2016-06-27 07:12 | Physician Query Form ---
CLICK EDIT DOCUMENT TO SELECT QUERY ANSWER --> OK --> SIGN Zaria Jauregui RN, CCDS Certified [employer] W) [phone] (f) [phone] [email or web address] PROVIDERS: Make your selection(s) from the choices in EACH section by typing an "x" and enter comments in the comment section. Please use your independent medical judgment in providing your response. This request does not imply that any particular answer is desired or expected. CLINICAL INDICATORS: (Providers should not edit this section) The medical record indicates that the patient was admitted with COPD exacerbation, "Respiratory Problems (02@2L at home)" and the patient was placed on oxygen on the 16. Based on the above, could you clarify the appropriate diagnosis, if significant , that supports the above abnormalities and additional evaluation, monitoring, and/or treatment rendered: ( X) patient is being monitored or treated for chronic respiratory failure ( ) patient is not being monitored or treated for chronic respiratory failure ( ) Other, please specify: ( ) Clinically unable to determine COMMENTS: PLEASE ALSO DOCUMENT RESPONSE IN PROGRESS NOTES AND/OR DISCHARGE SUMMARY Use of terms such as suspected, likely, or probable (associated with a specific diagnosis that is being evaluated, monitored, or treated as if it exists) are acceptable and can be restated in the discharge summary if not ruled out. MTDD
[2016-06-27] MEDS: THEOPHYLLINE ER 300 MG TABLET PO SCH ×2 (09:10→17:21)
[2016-06-27] MEDS: DILTIAZEM CD 180 MG CAPSULE PO SCH (09:10)
[2016-06-27] MEDS: POTASSIUM CHLORIDE 20 MEQ TABLET PO SCH ×2 (09:11→21:02)
[2016-06-27] MEDS: MAGNESIUM CHLORIDE 64 MG TABLET PO SCH ×2 (09:12→21:02)
[2016-06-27] MEDS: MONTELUKAST 10 MG TABLET PO SCH (09:12)
[2016-06-27] MEDS: PANTOPRAZOLE 40 MG TABLET PO SCH (09:12)
[2016-06-27] MEDS: predniSONE 10 MG TABLET PO SCH ×2 (09:12→21:02)
[2016-06-27] MEDS: LEVOTHYROXINE 100 MCG TABLET PO SCH (09:13)
[2016-06-27] MEDS: INSULIN GLARGINE 100 UNIT/ML SUBCUT SCH (12:35)
[2016-06-27] MEDS: INSULIN LISPRO 100 UNIT/ML SUBCUT SCH ×3 (12:38→20:33)
[2016-06-27] MEDS ORDERED: LORazepam 1 MG TABLET PO PRN (14:02)
--- NOTE | 2016-06-27 14:04 | Hospitalist Progress Note ---
Assessment and Plan (1) Acute exacerbation of chronic obstructive airways disease Status: Acute Assessment and plan: The patient is admitted to the hospital with worsening of her usual chronic lung disease. The patient will be treated with continued oral steroid medication, nebulized breathing therapy, and IV antibiotic. I am going to resume Ativan and had some Wysox to help alleviate some of her withdrawal symptoms. I anticipate discharge home tomorrow. Current Visit: No (2) Weakness generalized Status: Acute Current Visit: No (3) Diabetic neuropathy Status: Acute Current Visit: No Hospitalist: Subjective Interval history: The patient is resting quietly in bed at present. She complains of some mild tremulousness and feels some hunger for Wysox. The patient complains of pain in the left knee. The patient denies fever chills or palpitation. The patient' s affect reveals clearing sensorium and mild hypervigilance. Exam - Constitutional Vitals: Period Temp Pulse Resp BP Sys/Naqvi Pulse Ox Last 24 Hr 97.0 F-99.3 F 80-107 16-22 111-141/61-82 72-99 Exam: Constitutional System: Moderate distress. No tremulousness. Head: Normocephalic, atraumatic. Ears, Nose and Throat System: No evidence of Otitis or Mastoiditis. No epistaxis or discharge Eyes System: Pupils equal, round, and reactive. Extraocular muscles intact. Neck: Supple, without adenopathy, No jugular venous distention. No thyromegaly , neck mass, or prior surgery apparent. Respiratory System: Chest moderate air trapping to auscultation. Mild to moderate wheezing. Minimal upper airway congestion Cardiovascular System: Heart with regular rate and rhythm. No murmur. GI System: Abdomen soft, nontender. Normo active bowel sounds present. Musculoskeletal System: limbs with no pedal edema. Full distal pulses. Neurological System: No discernable sensory deficit. No aphasia Psychiatric System: Conversation is rational Results - Labs CBC & BMP: 06/27/16 03:52 06/27/16 03:52 Lab Results: I have reviewed the past 24 hour labs Specialty Discharge - Follow Up or Referrals
[2016-06-27] MEDS ORDERED: DEXTROSE 50% 25 GM/50 ML VIAL IV PRN (16:24)
[2016-06-27] MEDS ORDERED: GLUCAGON 1 MG VIAL IM PRN (16:24)
[2016-06-27] MEDS: ENOXAPARIN 30 MG/0.3 ML SYRINGE SUBCUT SCH (17:21)
[2016-06-27] MEDS: cefTRIAXone 1,000 MG in SODIUM CHLORIDE 0.9% 100 ML IV SCH (17:23)
[2016-06-27] MEDS ORDERED: ALBUTEROL/IPRATROPIUM 3 ML NEB RESP TX SCH (19:00)
[2016-06-27] MEDS: ATORVASTATIN 40 MG TABLET PO SCH (21:02)
[2016-06-27] MEDS: FLUoxetine 20 MG CAPSULE PO SCH (21:02)
[2016-06-28] MEDS: ALBUTEROL/IPRATROPIUM 3 ML NEB RESP TX SCH ×4 (00:10→11:41)
[2016-06-28] MEDS: INSULIN LISPRO 100 UNIT/ML SUBCUT SCH ×2 (07:24→12:58)
[2016-06-28] MEDS: DORNASE ALFA 2.5 MG/2.5 ML VIAL RESP TX SCH (07:37)
[2016-06-28] MEDS: INSULIN GLARGINE 100 UNIT/ML SUBCUT SCH (08:12)
[2016-06-28] MEDS: predniSONE 10 MG TABLET PO SCH (08:13)
[2016-06-28] MEDS: PANTOPRAZOLE 40 MG TABLET PO SCH (08:13)
[2016-06-28] MEDS: THEOPHYLLINE ER 300 MG TABLET PO SCH (08:14)
[2016-06-28] MEDS: DILTIAZEM CD 180 MG CAPSULE PO SCH (08:14)
[2016-06-28] MEDS: MAGNESIUM CHLORIDE 64 MG TABLET PO SCH (08:15)
[2016-06-28] MEDS: MONTELUKAST 10 MG TABLET PO SCH (08:16)
[2016-06-28] MEDS: POTASSIUM CHLORIDE 20 MEQ TABLET PO SCH (08:16)
[2016-06-28] MEDS: LEVOTHYROXINE 100 MCG TABLET PO SCH (08:16)
--- NOTE | 2016-06-28 08:48 | Discharge Summary ---
Hospital Course - Hospital Course Hospital Course: The patient was admitted to the hospital with shortness of breath, cough, altered mental status. The patient was treated for COPD exacerbation and we held her sedatives. The patient improved over 48 hours period Of time and is discharged home on the third day. On the date of discharge, the chest is clear , heart has regular rate and rhythm and abdomen soft. The patient required 36 minutes for preparation of discharge, examination and patient education. - Time spent with patient Time with patient DS: Greater than 30 minutes Diagnosis - Discharge Diagnosis (1) Acute exacerbation of chronic obstructive airways disease Status: Resolved (2) Weakness generalized Status: Chronic (3) Diabetic neuropathy Status: Chronic Specialty Discharge - Follow Up or Referrals Discharge Plan - Discharge Data Disposition: Home Health Service Condition at Discharge: Stable Discharge Diet: diabetic diet Activity: resume usual activities as tolerated - Discharge Medications Continue Atorvastatin [Lipitor] 40 mg PO BEDTIME tablet Ipratropium/Albuterol Inhaler [Combivent Respimat Inhaler] 2 puffs INH Q6HR PRN #0 PRN Reason: Shortness Of Breath Albuterol/Ipratropium Neb [Duoneb] 3 ml RESP TX RT Q4H 90 Days dilTIAZem HCl [Diltiazem 24Hr ER] 360 mg PO DAILY LORazepam TAB [Ativan Tab] 1 - 2 mg PO TID PRN PRN Reason: Anxiety metFORMIN [Glucophage] 500 mg PO QAM Insulin Glargine [Lantus] 13 unit SUBCUT DAILY unit Potassium Chloride Cap/Tab [K Dur] 20 meq PO BID tablet predniSONE TAB [PredniSONE] 10 mg PO BID #35 tablet traZODone [Desyrel] 100 mg PO BEDTIME tablet FLUoxetine [PROzac] 40 mg PO BEDTIME Theophylline ER Tab 300 mg PO BID W/MEALS Levothyroxine Sodium 100 mcg PO DAILY Dornase Wilfred [Pulmozyme] 2.5 mg RESP TX RT Q12H #1 vial Magnesium Chloride [Slow Mag] 64 mg PO BID tablet Montelukast Tab [Singulair Tab] 10 mg PO DAILY tablet - Follow Up or Referral Follow Up: Delgado,Christina Charlton NP [[facility]] - 1 Week - Forms/Instructions Instructions: Dehydration (DC), COPD Exacerbation, Residential [employer] Estate [employer] (GEN) Exam - Constitutional Vitals: Period Temp Pulse Resp BP Sys/Naqvi Pulse Ox Last 24 Hr 98.0 F-99.1 F 72-93 16-22 99-129/60-89 92-99 Discharge Results Labs on day of discharge: Labs from last 24 hours 06/28/16 06/27/16 06/27/16 07:18 19:33 15:41 POC Glucose 143 H 111 H 164 H 06/27/16 11:51 POC Glucose 121 H DS: Provider Date of admission: 06/26/16 14:56 Primary care physician: Mykel Dixon DO Attending physician on admission: Jose Maria Phillip MD Consults: 06/26/16 14:44 Consult to Physical Therapy [CONS] Routine Reason for Physical Therapy: Evaluate and Treat 06/26/16 16:22 Consult to Dietitian [CONS] Routine Reason for Dietitian: Dietary Consult Discharging clinician: Jose Maria Phillip MD
[2016-06-28 11:17] VITALS: BP 122/69
== END 2016-06-28 13:17 | disposition home health service (06) | DRG 191 ==
LOC: N.3E 14:56
PROVIDERS: ADMIT Internal Medicine; ATTEND Internal Medicine

== ENCOUNTER 2017-05-31 08:05 | Inpatient (IN) ==
[2017-05-31] MEDS ORDERED: cefTRIAXone 1,000 MG in SODIUM CHLORIDE 0.9% 100 ML IV STA (09:58)
[2017-05-31] MEDS ORDERED: ONDANSETRON 4 MG/2 ML VIAL IV STA (09:58)
[2017-05-31] MEDS ORDERED: methylPREDNISolone SOD SUC 125 MG/2 ML VIAL IV STA (09:58)
[2017-05-31] MEDS ORDERED: FUROSEMIDE 100 MG/10 ML VIAL IV STA (09:58)
[2017-05-31] MEDS ORDERED: MORPHINE 4 MG/1 ML VIAL IV STA (09:58)
[2017-05-31] MEDS ORDERED: ALBUTEROL 2.5 MG/3 ML NEB RESP TX SCH (10:00)
[2017-05-31 10:10] LABS: Apearance,Urine Slightly Hazy (Clear); Bilirubin,Urine Negative (Negative); Blood, Urine Negative (Negative); Glucose,Urine (UA) Negative (Negative); Ketones,Urine 5 mg/dL (Negative); Mucus,Urine Many /LPF (Occasional); Nitrite,Urine Negative (Negative); Protein,Urine 100 MG/DL; RBC,Urine 2 /HPF (0-4); Urine Color Amber (Yellow); Urine Specific Gravity 1.025 (1.001-1.035); Urine Urobilinogen < 2.0 EU/DL (0.2-1.0); WBC,Urine 1 /HPF (0-6)
[2017-05-31 10:17] LABS: Basophils # 0.1 10*3/uL (0.0-0.2); Basophils % 0.4 % (0.0-0.8); Hematocrit 41.2 VOL% (35.7-47.0); Hemoglobin 13.6 GM/DL (12.0-16.0); Immature Granulocytes Absolute 2.51 #; Lymphocytes # 0.9 10*3/uL (1.4-4.0); Mean Corpuscular Hemoglobin 29 PG (27-34); Mean Corpuscular Volume 86.4 FL (87-102); Mean Platelet Volume 10.6 FL (9.6-12.0); Monocytes # 1.1 10*3/uL (0.11-0.8); Monocytes % 3.5 % (1.7-12.7); Neutrophils # 26.6 10*3/uL (1.4-7.4); Neutrophils % 85.1 % (38.7-73.9); Platelet Count 270 T/CUMM (130-400); Red Blood Count 4.77 MC/CUMM (3.8-5.5); Red Cell Distribution Width 16.1 % (9.3-17.3); White Blood Count 31.3 T/CUMM (4-12)
[2017-05-31 10:24] LABS: INR 1.2
[2017-05-31] MEDS ORDERED: ONDANSETRON 4 MG/2 ML VIAL ONE (10:25)
[2017-05-31] MEDS ORDERED: cefTRIAXone 1,000 MG VIAL ONE (10:25)
[2017-05-31] MEDS ORDERED: MORPHINE 4 MG/1 ML VIAL ONE (10:26)
[2017-05-31] MEDS ORDERED: FUROSEMIDE 100 MG/10 ML VIAL ONE (10:26)
[2017-05-31] MEDS ORDERED: methylPREDNISolone SOD SUC 125 MG/2 ML VIAL ONE (10:26)
[2017-05-31 10:33] LABS: Alanine Aminotransferase 38 U/L (13-56); Albumin 2.9 G/DL (3.4-5.0); Alkaline Phosphatase 87 U/L (45-117); Aspartate Amino Transferase 98 U/L (0-37); Blood Urea Nitrogen 28 MG/DL (7-18); Calcium 9.7 MG/DL (8.5-10.1); Glucose 96 MG/DL (74-106); Osmolality,Calculated 269.5 MOS/KG (273-304); Potassium 3.3 MMOL/L (3.5-5.1); Sodium 132 MMOL/L (136-145); Total Protein 6.7 G/DL (6.4-8.3); Troponin I Only < 0.015 NG/ML (0.00-0.045)
[2017-05-31 10:39] LABS: Band Neutrophils 18 % (0-10); Lymphocytes 3 % (20-55); Metamyelocytes 2 %; Segmented Neutrophils 73 % (50-85); Total Cells Counted 100
[2017-05-31 10:40] LABS: Burr Cells Slight; Hypochromasia 1+; Microcytosis 1+
[2017-05-31 10:41] LABS: Ovalocytes Slight; Platelet Estimate Normal
[2017-05-31 11:05] LABS: Lactic Acid 1.5 MMOL/L (0.4-2.0)
[2017-05-31] MEDS ORDERED: MAGNESIUM SULF RIDER 2 GM in PREMIX 1 EACH IV STA (11:47)
[2017-05-31] MEDS ORDERED: ACETAMINOPHEN 325 MG TABLET PO PRN (12:37)
[2017-05-31] MEDS ORDERED: MORPHINE 4 MG/1 ML VIAL IV PRN (12:37)
[2017-05-31] MEDS ORDERED: GLUCAGON 1 MG VIAL IM PRN (12:37)
[2017-05-31] MEDS ORDERED: DEXTROSE 50% 25 GM/50 ML VIAL IV PRN (12:37)
[2017-05-31] MEDS ORDERED: traMADol 50 MG TABLET PO PRN (12:46)
[2017-05-31] MEDS ORDERED: ALBUTEROL 2.5 MG/3 ML NEB RESP TX PRN (12:50)
[2017-05-31] MEDS ORDERED: POTASSIUM CHLORIDE 20 MEQ TABLET PO ONE (12:57)
[2017-05-31] MEDS ORDERED: MAGNESIUM SULF RIDER 4 GM in PREMIX 1 EACH IV PRN (12:59)
[2017-05-31] MEDS ORDERED: MAGNESIUM SULF RIDER 2 GM in PREMIX 1 EACH IV PRN (12:59)
[2017-05-31] MEDS ORDERED: SODIUM CHLORIDE 0.9% 1,000 ML IV SCH (13:00)
[2017-05-31] MEDS ORDERED: MAGNESIUM SULF RIDER 50 ML IV ONE (13:23)
[2017-05-31] MEDS: ALBUTEROL/IPRATROPIUM 3 ML NEB RESP TX SCH ×2 (14:48→20:45)
[2017-05-31] MEDS: MELOXICAM 7.5 MG TABLET PO SCH (15:49)
[2017-05-31] MEDS: DILTIAZEM CD 180 MG CAPSULE PO SCH (15:49)
[2017-05-31] MEDS: THEOPHYLLINE ER (24 HR) 400 MG CAPSULE PO SCH (15:49)
[2017-05-31] MEDS: MAGNESIUM OXIDE 400 MG TABLET PO SCH (15:50)
[2017-05-31] MEDS: FLUoxetine 20 MG CAPSULE PO SCH (15:50)
[2017-05-31] MEDS: PANTOPRAZOLE 40 MG TABLET PO SCH (15:51)
[2017-05-31] MEDS: AZITHROMYCIN INJ 500 MG in SODIUM CHLORIDE 0.9% 250 ML IV SCH (16:35)
[2017-05-31] MEDS: BUDESONIDE/FORMOTEROL 160-4.5 INHALER 6 GM INH SCH ×2 (16:36→21:35)
[2017-05-31] MEDS: INSULIN LISPRO 100 UNIT/ML SUBCUT SCH (16:36)
[2017-05-31] MEDS ORDERED: SODIUM CHLORIDE 0.9% 500 ML IV ONE (17:58)
[2017-05-31] MEDS: methylPREDNISolone SOD SUC 40 MG/1 ML VIAL IV SCH ×2 (18:00→23:55)
[2017-05-31] MEDS ORDERED: ALBUTEROL/IPRATROPIUM 3 ML NEB RESP TX PRN (18:32)
[2017-05-31] MEDS: clonazePAM 0.5 MG TABLET PO PRN (21:36)
[2017-05-31] MEDS: ENOXAPARIN 40 MG/0.4 ML SYRINGE SUBCUT SCH (21:36)
[2017-05-31] MEDS: POTASSIUM CHLORIDE 20 MEQ TABLET PO SCH (21:36)
[2017-05-31] MEDS: MONTELUKAST 10 MG TABLET PO SCH (21:36)
[2017-05-31] MEDS: VANCOMYCIN INJ 1,250 MG in SODIUM CHLORIDE 0.9% 250 ML IV SCH (21:37)
[2017-06-01] MEDS ORDERED: FUROSEMIDE 40 MG/4 ML VIAL IV ONE (00:15)
[2017-06-01] MEDS: ALBUTEROL/IPRATROPIUM 3 ML NEB RESP TX SCH ×4 (01:15→20:03)
[2017-06-01 03:27] LABS: Basophils # 0.2 10*3/uL (0.0-0.2); Basophils % 0.8 % (0.0-0.8); Hematocrit 37.5 VOL% (35.7-47.0); Hemoglobin 12.7 GM/DL (12.0-16.0); Immature Granulocytes % 12.5 %; Immature Granulocytes Absolute 2.76 #; Lymphocytes # 0.4 10*3/uL (1.4-4.0); Lymphocytes % 1.7 % (21.3-54.2); Mean Corpuscular HGB Conc 33.9 GM/DL (32-36); Mean Corpuscular Hemoglobin 29 PG (27-34); Mean Corpuscular Volume 84.7 FL (87-102); Mean Platelet Volume 10.7 FL (9.6-12.0); Monocytes # 0.5 10*3/uL (0.11-0.8); Monocytes % 2.4 % (1.7-12.7); Neutrophils # 18.3 10*3/uL (1.4-7.4); Neutrophils % 82.6 % (38.7-73.9); Platelet Count 246 T/CUMM (130-400); Red Blood Count 4.43 MC/CUMM (3.8-5.5); White Blood Count 22.1 T/CUMM (4-12)
[2017-06-01 04:01] LABS: Band Neutrophils 43 % (0-10); Lymphocytes 1 % (20-55); Segmented Neutrophils 56 % (50-85); Total Cells Counted 100
[2017-06-01 04:02] LABS: Albumin 2.6 G/DL (3.4-5.0); Anisocytosis 1+; Bilirubin,Total 0.9 MG/DL (0.2-1.0); Calcium 9.1 MG/DL (8.5-10.1); Osmolality,Calculated 274.5 MOS/KG (273-304); Poikilocytosis 1+; Potassium 3.6 MMOL/L (3.5-5.1); Risk Ratio 5.64; Thyroid Stimulating Hormone 1.26 uIU/ml (0.358-3.74); Total Protein 5.5 G/DL (6.4-8.3)
[2017-06-01] MEDS: LEVOTHYROXINE 150 MCG TABLET PO SCH (06:16)
[2017-06-01] MEDS: methylPREDNISolone SOD SUC 40 MG/1 ML VIAL IV SCH ×4 (06:16→23:59)
[2017-06-01] MEDS: POTASSIUM CHLORIDE RIDER 10 MEQ in PREMIX 1 EACH IV PRN ×2 (06:23→07:31)
[2017-06-01] MEDS: INSULIN LISPRO 100 UNIT/ML SUBCUT SCH ×2 (08:53→17:59)
[2017-06-01] MEDS: cefTRIAXone 1,000 MG in SYRINGE 1 EACH IV SCH (09:11)
[2017-06-01] MEDS: MELOXICAM 7.5 MG TABLET PO SCH (09:14)
[2017-06-01] MEDS: PANTOPRAZOLE 40 MG TABLET PO SCH (09:14)
[2017-06-01] MEDS: MAGNESIUM OXIDE 400 MG TABLET PO SCH (09:14)
[2017-06-01] MEDS: DILTIAZEM CD 180 MG CAPSULE PO SCH (09:14)
[2017-06-01] MEDS: THEOPHYLLINE ER (24 HR) 400 MG CAPSULE PO SCH (09:14)
[2017-06-01] MEDS: POTASSIUM CHLORIDE 20 MEQ TABLET PO SCH (09:14)
[2017-06-01] MEDS: BUDESONIDE/FORMOTEROL 160-4.5 INHALER 6 GM INH SCH ×2 (09:15→21:30)
[2017-06-01] MEDS: FLUoxetine 20 MG CAPSULE PO SCH (09:15)
[2017-06-01] MEDS: VANCOMYCIN INJ 1,250 MG in SODIUM CHLORIDE 0.9% 250 ML IV SCH ×2 (09:23→21:28)
[2017-06-01] MEDS: DORNASE ALFA 2.5 MG/2.5 ML VIAL RESP TX SCH ×2 (14:04→20:03)
[2017-06-01] MEDS: clonazePAM 0.5 MG TABLET PO PRN ×2 (15:32→21:32)
[2017-06-01] MEDS: AZITHROMYCIN INJ 500 MG in SODIUM CHLORIDE 0.9% 250 ML IV SCH (15:33)
[2017-06-01] MEDS: ENOXAPARIN 40 MG/0.4 ML SYRINGE SUBCUT SCH (21:29)
[2017-06-01] MEDS: MONTELUKAST 10 MG TABLET PO SCH (21:30)
[2017-06-02] MEDS: ALBUTEROL/IPRATROPIUM 3 ML NEB RESP TX SCH ×4 (01:16→19:15)
[2017-06-02] MEDS: LEVOTHYROXINE 150 MCG TABLET PO SCH (06:43)
[2017-06-02] MEDS: methylPREDNISolone SOD SUC 40 MG/1 ML VIAL IV SCH ×3 (06:43→17:48)
[2017-06-02 07:29] LABS: Basophils % 0.2 % (0.0-0.8); Hematocrit 32.5 VOL% (35.7-47.0); Hemoglobin 11.3 GM/DL (12.0-16.0); Immature Granulocytes % 0.8 %; Lymphocytes # 0.3 10*3/uL (1.4-4.0); Lymphocytes % 2.6 % (21.3-54.2); Mean Corpuscular HGB Conc 34.8 GM/DL (32-36); Mean Corpuscular Hemoglobin 29 PG (27-34); Mean Corpuscular Volume 83.3 FL (87-102); Mean Platelet Volume 10.5 FL (9.6-12.0); Monocytes # 0.4 10*3/uL (0.11-0.8); Monocytes % 2.7 % (1.7-12.7); Neutrophils % 93.7 % (38.7-73.9); Platelet Count 215 T/CUMM (130-400); Red Cell Distribution Width 16.2 % (9.3-17.3); White Blood Count 12.8 T/CUMM (4-12)
[2017-06-02] MEDS: DORNASE ALFA 2.5 MG/2.5 ML VIAL RESP TX SCH ×2 (07:31→19:15)
[2017-06-02 07:53] LABS: Albumin 2.4 G/DL (3.4-5.0); Bilirubin,Total 0.4 MG/DL (0.2-1.0); Osmolality,Calculated 286.8 MOS/KG (273-304); Total Protein 5.4 G/DL (6.4-8.3)
[2017-06-02] MEDS: DILTIAZEM CD 180 MG CAPSULE PO SCH (09:48)
[2017-06-02] MEDS: FLUoxetine 20 MG CAPSULE PO SCH (09:49)
[2017-06-02] MEDS: MELOXICAM 7.5 MG TABLET PO SCH (09:49)
[2017-06-02] MEDS: PANTOPRAZOLE 40 MG TABLET PO SCH (09:49)
[2017-06-02] MEDS: MAGNESIUM OXIDE 400 MG TABLET PO SCH (09:49)
[2017-06-02] MEDS: THEOPHYLLINE ER (24 HR) 400 MG CAPSULE PO SCH (09:49)
[2017-06-02] MEDS: INSULIN LISPRO 100 UNIT/ML SUBCUT SCH ×2 (09:50→17:45)
[2017-06-02] MEDS: POTASSIUM CHLORIDE 20 MEQ TABLET PO SCH (09:50)
[2017-06-02] MEDS: cefTRIAXone 1,000 MG in SYRINGE 1 EACH IV SCH (09:50)
[2017-06-02] MEDS: BUDESONIDE/FORMOTEROL 160-4.5 INHALER 6 GM INH SCH ×2 (09:59→21:39)
[2017-06-02] MEDS: VANCOMYCIN INJ 1,250 MG in SODIUM CHLORIDE 0.9% 250 ML IV SCH ×2 (10:00→21:40)
[2017-06-02 10:51] LABS: Band Neutrophils 7 % (0-10); Burr Cells Slight; Hypochromasia 2+; Lymphocytes 2 % (20-55); Platelet Estimate Adequate; Segmented Neutrophils 85 % (50-85); Total Cells Counted 100
[2017-06-02] MEDS: clonazePAM 0.5 MG TABLET PO PRN (17:46)
[2017-06-02] MEDS: MONTELUKAST 10 MG TABLET PO SCH (21:37)
[2017-06-02] MEDS: AZITHROMYCIN 250 MG TABLET PO SCH (21:37)
[2017-06-02] MEDS: ENOXAPARIN 40 MG/0.4 ML SYRINGE SUBCUT SCH (21:38)
[2017-06-03] MEDS: ALBUTEROL/IPRATROPIUM 3 ML NEB RESP TX SCH ×4 (00:23→19:37)
[2017-06-03] MEDS: methylPREDNISolone SOD SUC 40 MG/1 ML VIAL IV SCH ×4 (00:53→18:05)
[2017-06-03] MEDS: clonazePAM 0.5 MG TABLET PO PRN ×2 (04:29→18:04)
[2017-06-03 05:06] LABS: Basophils % 0.1 % (0.0-0.8); Hematocrit 32.6 VOL% (35.7-47.0); Hemoglobin 10.7 GM/DL (12.0-16.0); Immature Granulocytes % 1.4 %; Immature Granulocytes Absolute 0.13 #; Lymphocytes # 0.3 10*3/uL (1.4-4.0); Lymphocytes % 3.3 % (21.3-54.2); Mean Corpuscular HGB Conc 32.8 GM/DL (32-36); Mean Corpuscular Hemoglobin 28 PG (27-34); Monocytes # 0.4 10*3/uL (0.11-0.8); Monocytes % 4.1 % (1.7-12.7); Neutrophils # 8.8 10*3/uL (1.4-7.4); Neutrophils % 91.1 % (38.7-73.9); Platelet Count 235 T/CUMM (130-400); Red Blood Count 3.79 MC/CUMM (3.8-5.5); Red Cell Distribution Width 16.7 % (9.3-17.3); White Blood Count 9.6 T/CUMM (4-12)
[2017-06-03 05:45] LABS: Albumin 2.2 G/DL (3.4-5.0); Bilirubin,Total 0.6 MG/DL (0.2-1.0); Calcium 8.6 MG/DL (8.5-10.1); Osmolality,Calculated 285.1 MOS/KG (273-304); Potassium 4.5 MMOL/L (3.5-5.1); Total Protein 5.2 G/DL (6.4-8.3)
[2017-06-03] MEDS: LEVOTHYROXINE 150 MCG TABLET PO SCH (06:06)
[2017-06-03 06:15] LABS: Band Neutrophils 1 % (0-10); Burr Cells Slight; Hypochromasia 2+; Lymphocytes 2 % (20-55); Platelet Estimate Adequate; Segmented Neutrophils 95 % (50-85); Total Cells Counted 100
[2017-06-03] MEDS: DORNASE ALFA 2.5 MG/2.5 ML VIAL RESP TX SCH ×2 (07:47→19:37)
[2017-06-03] MEDS: INSULIN LISPRO 100 UNIT/ML SUBCUT SCH ×2 (09:35→17:44)
[2017-06-03] MEDS: DILTIAZEM CD 180 MG CAPSULE PO SCH (09:36)
[2017-06-03] MEDS: POTASSIUM CHLORIDE 20 MEQ TABLET PO SCH (09:37)
[2017-06-03] MEDS: MAGNESIUM OXIDE 400 MG TABLET PO SCH (09:37)
[2017-06-03] MEDS: MELOXICAM 7.5 MG TABLET PO SCH (09:37)
[2017-06-03] MEDS: FLUoxetine 20 MG CAPSULE PO SCH (09:38)
[2017-06-03] MEDS: THEOPHYLLINE ER (24 HR) 400 MG CAPSULE PO SCH (09:38)
[2017-06-03] MEDS: PANTOPRAZOLE 40 MG TABLET PO SCH (09:38)
[2017-06-03] MEDS: cefTRIAXone 1,000 MG in SYRINGE 1 EACH IV SCH (09:45)
[2017-06-03] MEDS: BUDESONIDE/FORMOTEROL 160-4.5 INHALER 6 GM INH SCH ×2 (09:47→21:32)
[2017-06-03] MEDS: VANCOMYCIN INJ 1,250 MG in SODIUM CHLORIDE 0.9% 250 ML IV SCH (09:55)
[2017-06-03] MEDS ORDERED: SODIUM PHOSPHATE INJ 15 MMOL in SODIUM CHLORIDE 0.9% 250 ML IV ONE (10:00)
[2017-06-03] MEDS: MONTELUKAST 10 MG TABLET PO SCH (21:30)
[2017-06-03] MEDS: ZALEPLON 5 MG CAPSULE PO PRN (21:30)
[2017-06-03] MEDS: AZITHROMYCIN 250 MG TABLET PO SCH (21:30)
[2017-06-03] MEDS: ENOXAPARIN 40 MG/0.4 ML SYRINGE SUBCUT SCH (21:30)
[2017-06-04] MEDS: methylPREDNISolone SOD SUC 40 MG/1 ML VIAL IV SCH ×4 (00:14→22:10)
[2017-06-04] MEDS: traZODone 50 MG TABLET PO PRN (00:14)
[2017-06-04] MEDS: ALBUTEROL/IPRATROPIUM 3 ML NEB RESP TX SCH ×4 (01:02→19:53)
[2017-06-04] MEDS: LEVOTHYROXINE 150 MCG TABLET PO SCH (06:09)
[2017-06-04 06:46] LABS: Basophils % 0.3 % (0.0-0.8); Hematocrit 34.7 VOL% (35.7-47.0); Hemoglobin 11.1 GM/DL (12.0-16.0); Immature Granulocytes % 4.2 %; Immature Granulocytes Absolute 0.31 #; Lymphocytes # 0.4 10*3/uL (1.4-4.0); Lymphocytes % 4.7 % (21.3-54.2); Mean Corpuscular Hemoglobin 28 PG (27-34); Mean Platelet Volume 10.9 FL (9.6-12.0); Monocytes # 0.5 10*3/uL (0.11-0.8); Monocytes % 6.6 % (1.7-12.7); Neutrophils # 6.2 10*3/uL (1.4-7.4); Neutrophils % 84.2 % (38.7-73.9); Platelet Count 255 T/CUMM (130-400); Red Blood Count 3.99 MC/CUMM (3.8-5.5); Red Cell Distribution Width 16.6 % (9.3-17.3); White Blood Count 7.4 T/CUMM (4-12)
[2017-06-04 07:10] LABS: Band Neutrophils 1 % (0-10); Hypochromasia 1+; Lymphocytes 5 % (20-55); Microcytosis 1+; Segmented Neutrophils 91 % (50-85); Total Cells Counted 100
[2017-06-04 07:21] LABS: Alanine Aminotransferase 58 U/L (13-56); Albumin 2.3 G/DL (3.4-5.0); Alkaline Phosphatase 71 U/L (45-117); Aspartate Amino Transferase 20 U/L (0-37); Bilirubin,Total < 0.39 MG/DL (0.2-1.0); Blood Urea Nitrogen 28 MG/DL (7-18); Calcium 8.5 MG/DL (8.5-10.1); Glucose 300 MG/DL (74-106); Osmolality,Calculated 291.7 MOS/KG (273-304); Potassium 4.2 MMOL/L (3.5-5.1); Sodium 138 MMOL/L (136-145); Total Protein 5.2 G/DL (6.4-8.3)
[2017-06-04] MEDS: DORNASE ALFA 2.5 MG/2.5 ML VIAL RESP TX SCH ×2 (07:33→20:00)
[2017-06-04] MEDS: DILTIAZEM CD 180 MG CAPSULE PO SCH (09:06)
[2017-06-04] MEDS: FLUoxetine 20 MG CAPSULE PO SCH (09:06)
[2017-06-04] MEDS: INSULIN LISPRO 100 UNIT/ML SUBCUT SCH ×3 (09:07→21:10)
[2017-06-04] MEDS: MELOXICAM 7.5 MG TABLET PO SCH (09:08)
[2017-06-04] MEDS: POTASSIUM CHLORIDE 20 MEQ TABLET PO SCH (09:08)
[2017-06-04] MEDS: MAGNESIUM OXIDE 400 MG TABLET PO SCH (09:08)
[2017-06-04] MEDS: THEOPHYLLINE ER (24 HR) 400 MG CAPSULE PO SCH (09:08)
[2017-06-04] MEDS: BUDESONIDE/FORMOTEROL 160-4.5 INHALER 6 GM INH SCH ×2 (09:09→21:09)
[2017-06-04] MEDS: PANTOPRAZOLE 40 MG TABLET PO SCH (09:09)
[2017-06-04] MEDS: clonazePAM 0.5 MG TABLET PO PRN ×2 (09:12→21:16)
[2017-06-04] MEDS: DOCUSATE SODIUM 100 MG CAPSULE PO PRN (09:13)
[2017-06-04] MEDS ORDERED: MAGNESIUM HYDROXIDE SUSP 30 ML UDCUP PO ONE (11:30)
[2017-06-04] MEDS ORDERED: SODIUM PHOSPHATE ENEMA 133 ML BOTTLE RECTAL ONE (11:30)
[2017-06-04] MEDS: DICLOFENAC 1.3% PATCH 5/PACK TRANSDERM SCH ×2 (12:56→21:08)
[2017-06-04] MEDS ORDERED: TUBERCULIN SKIN TEST 0.1 ML SYRINGE INTRADERM ONE (15:00)
[2017-06-04] MEDS: glipiZIDE 10 MG TABLET PO SCH (16:46)
[2017-06-04] MEDS: ENOXAPARIN 40 MG/0.4 ML SYRINGE SUBCUT SCH (21:08)
[2017-06-04] MEDS: MONTELUKAST 10 MG TABLET PO SCH (21:08)
[2017-06-04] MEDS: ZALEPLON 5 MG CAPSULE PO PRN (21:55)
[2017-06-05] MEDS: ALBUTEROL/IPRATROPIUM 3 ML NEB RESP TX SCH ×4 (00:10→19:20)
[2017-06-05] MEDS: methylPREDNISolone SOD SUC 40 MG/1 ML VIAL IV SCH ×4 (03:54→21:10)
[2017-06-05] MEDS: LEVOTHYROXINE 150 MCG TABLET PO SCH (06:32)
[2017-06-05] MEDS: DORNASE ALFA 2.5 MG/2.5 ML VIAL RESP TX SCH ×2 (07:21→19:20)
[2017-06-05] MEDS ORDERED: SODIUM PHOSPHATE ENEMA 133 ML BOTTLE RECTAL PRN (09:00)
[2017-06-05] MEDS: LEVOFLOXACIN INJ 500 MG in PREMIX 1 EACH IV SCH (09:33)
[2017-06-05] MEDS: DILTIAZEM CD 180 MG CAPSULE PO SCH (09:35)
[2017-06-05] MEDS: INSULIN LISPRO 100 UNIT/ML SUBCUT SCH ×4 (09:36→21:06)
[2017-06-05] MEDS: clonazePAM 0.5 MG TABLET PO PRN ×2 (09:37→21:09)
[2017-06-05] MEDS: DOCUSATE SODIUM 100 MG CAPSULE PO PRN (09:37)
[2017-06-05] MEDS: MAGNESIUM OXIDE 400 MG TABLET PO SCH (09:37)
[2017-06-05] MEDS: FLUoxetine 20 MG CAPSULE PO SCH (09:37)
[2017-06-05] MEDS: THEOPHYLLINE ER (24 HR) 400 MG CAPSULE PO SCH (09:37)
[2017-06-05] MEDS: PANTOPRAZOLE 40 MG TABLET PO SCH (09:38)
[2017-06-05] MEDS: MELOXICAM 7.5 MG TABLET PO SCH (09:38)
[2017-06-05] MEDS: DICLOFENAC 1.3% PATCH 5/PACK TRANSDERM SCH ×2 (09:42→21:06)
[2017-06-05] MEDS: POTASSIUM CHLORIDE 20 MEQ TABLET PO SCH (09:42)
[2017-06-05] MEDS: glipiZIDE 10 MG TABLET PO SCH ×2 (09:43→17:05)
[2017-06-05] MEDS: BUDESONIDE/FORMOTEROL 160-4.5 INHALER 6 GM INH SCH ×2 (09:46→21:10)
[2017-06-05] MEDS: NYSTATIN 500,000 UNIT/5 ML UDCUP SWISH/SWAL SCH ×2 (17:05→21:11)
[2017-06-05] MEDS: ENOXAPARIN 40 MG/0.4 ML SYRINGE SUBCUT SCH (21:09)
[2017-06-05] MEDS: MONTELUKAST 10 MG TABLET PO SCH (21:09)
[2017-06-05] MEDS: ONDANSETRON 4 MG/2 ML VIAL IV PRN (21:10)
[2017-06-05] MEDS: ZALEPLON 5 MG CAPSULE PO PRN (21:10)
[2017-06-05] MEDS: traZODone 50 MG TABLET PO PRN (21:10)
[2017-06-06] MEDS: ALBUTEROL/IPRATROPIUM 3 ML NEB RESP TX SCH ×4 (00:40→19:57)
[2017-06-06] MEDS: methylPREDNISolone SOD SUC 40 MG/1 ML VIAL IV SCH ×4 (05:03→21:33)
[2017-06-06 05:12] LABS: Basophils % 0.4 % (0.0-0.8); Hematocrit 37.7 VOL% (35.7-47.0); Hemoglobin 12.7 GM/DL (12.0-16.0); Immature Granulocytes % 9.1 %; Immature Granulocytes Absolute 0.87 #; Lymphocytes # 0.7 10*3/uL (1.4-4.0); Lymphocytes % 7.3 % (21.3-54.2); Mean Corpuscular HGB Conc 33.7 GM/DL (32-36); Mean Corpuscular Hemoglobin 28 PG (27-34); Mean Corpuscular Volume 84.3 FL (87-102); Mean Platelet Volume 10.3 FL (9.6-12.0); Monocytes # 0.6 10*3/uL (0.11-0.8); Monocytes % 6.3 % (1.7-12.7); Neutrophils # 7.4 10*3/uL (1.4-7.4); Neutrophils % 76.9 % (38.7-73.9); Platelet Count 339 T/CUMM (130-400); Red Blood Count 4.47 MC/CUMM (3.8-5.5); Red Cell Distribution Width 16.8 % (9.3-17.3); White Blood Count 9.6 T/CUMM (4-12)
[2017-06-06 05:38] LABS: Band Neutrophils 5 % (0-10); Lymphocytes 6 % (20-55); Segmented Neutrophils 85 % (50-85); Total Cells Counted 100
[2017-06-06 05:46] LABS: Osmolality,Calculated 290.5 MOS/KG (273-304); Potassium 5.2 MMOL/L (3.5-5.1)
[2017-06-06] MEDS: LEVOTHYROXINE 150 MCG TABLET PO SCH (06:37)
[2017-06-06] MEDS: DORNASE ALFA 2.5 MG/2.5 ML VIAL RESP TX SCH ×2 (07:43→19:57)
[2017-06-06] MEDS: LEVOFLOXACIN INJ 500 MG in PREMIX 1 EACH IV SCH (08:19)
[2017-06-06] MEDS: INSULIN LISPRO 100 UNIT/ML SUBCUT SCH ×4 (08:21→21:32)
[2017-06-06] MEDS: NYSTATIN 500,000 UNIT/5 ML UDCUP SWISH/SWAL SCH ×4 (08:22→20:33)
[2017-06-06] MEDS: FLUoxetine 20 MG CAPSULE PO SCH (08:22)
[2017-06-06] MEDS: glipiZIDE 10 MG TABLET PO SCH ×2 (08:22→16:15)
[2017-06-06] MEDS: POTASSIUM CHLORIDE 20 MEQ TABLET PO SCH (08:22)
[2017-06-06] MEDS: MONTELUKAST 10 MG TABLET PO SCH ×2 (08:22→20:32)
[2017-06-06] MEDS: THEOPHYLLINE ER (24 HR) 400 MG CAPSULE PO SCH (08:22)
[2017-06-06] MEDS: MELOXICAM 7.5 MG TABLET PO SCH (08:23)
[2017-06-06] MEDS: PANTOPRAZOLE 40 MG TABLET PO SCH (08:23)
[2017-06-06] MEDS: DILTIAZEM CD 180 MG CAPSULE PO SCH (08:23)
[2017-06-06] MEDS: MAGNESIUM OXIDE 400 MG TABLET PO SCH (08:23)
[2017-06-06] MEDS: DOCUSATE SODIUM 100 MG CAPSULE PO PRN ×2 (08:23→20:32)
[2017-06-06] MEDS: clonazePAM 0.5 MG TABLET PO PRN ×2 (08:46→20:32)
[2017-06-06] MEDS: DICLOFENAC 1.3% PATCH 5/PACK TRANSDERM SCH ×2 (08:49→20:33)
[2017-06-06] MEDS: BUDESONIDE/FORMOTEROL 160-4.5 INHALER 6 GM INH SCH ×2 (08:50→21:35)
[2017-06-06] MEDS: INSULIN GLARGINE 100 UNIT/ML SUBCUT SCH (09:55)
[2017-06-06] MEDS: ALBUTEROL 0.4 MG/ML 30 ML/BOTTLE PO SCH ×3 (12:21→21:32)
[2017-06-06] MEDS: MAGNESIUM HYDROXIDE SUSP 30 ML UDCUP PO PRN ×2 (16:16→20:33)
[2017-06-06] MEDS: ONDANSETRON 4 MG/2 ML VIAL IV PRN (19:19)
[2017-06-06] MEDS: guaiFENesin/DM ER 600-30 MG TABLET PO PRN (20:32)
[2017-06-06] MEDS: ZALEPLON 5 MG CAPSULE PO PRN (20:32)
[2017-06-06] MEDS: traZODone 50 MG TABLET PO PRN (20:32)
[2017-06-06] MEDS: ENOXAPARIN 40 MG/0.4 ML SYRINGE SUBCUT SCH (20:33)
[2017-06-07] MEDS: ALBUTEROL/IPRATROPIUM 3 ML NEB RESP TX SCH ×4 (01:05→19:39)
[2017-06-07] MEDS: methylPREDNISolone SOD SUC 40 MG/1 ML VIAL IV SCH ×4 (03:04→21:50)
[2017-06-07] MEDS: LEVOTHYROXINE 150 MCG TABLET PO SCH (06:13)
[2017-06-07] MEDS: ALBUTEROL 0.4 MG/ML 30 ML/BOTTLE PO SCH ×2 (06:13→14:03)
[2017-06-07] MEDS: DORNASE ALFA 2.5 MG/2.5 ML VIAL RESP TX SCH ×2 (06:48→19:39)
[2017-06-07] MEDS: INSULIN LISPRO 100 UNIT/ML SUBCUT SCH ×4 (08:51→21:57)
[2017-06-07] MEDS: THEOPHYLLINE ER (24 HR) 400 MG CAPSULE PO SCH (08:52)
[2017-06-07] MEDS: DOCUSATE SODIUM 100 MG CAPSULE PO PRN ×2 (08:52→21:54)
[2017-06-07] MEDS: INSULIN GLARGINE 100 UNIT/ML SUBCUT SCH (08:52)
[2017-06-07] MEDS: MAGNESIUM OXIDE 400 MG TABLET PO SCH (08:53)
[2017-06-07] MEDS: clonazePAM 0.5 MG TABLET PO PRN ×3 (08:53→21:54)
[2017-06-07] MEDS: MELOXICAM 7.5 MG TABLET PO SCH (08:54)
[2017-06-07] MEDS: PANTOPRAZOLE 40 MG TABLET PO SCH (08:54)
[2017-06-07] MEDS: POTASSIUM CHLORIDE 20 MEQ TABLET PO SCH (08:54)
[2017-06-07] MEDS: DILTIAZEM CD 180 MG CAPSULE PO SCH (08:54)
[2017-06-07] MEDS: MONTELUKAST 10 MG TABLET PO SCH ×2 (08:54→21:55)
[2017-06-07] MEDS: FLUoxetine 20 MG CAPSULE PO SCH (08:55)
[2017-06-07] MEDS: guaiFENesin/DM ER 600-30 MG TABLET PO PRN ×2 (08:55→21:55)
[2017-06-07] MEDS: glipiZIDE 10 MG TABLET PO SCH ×2 (08:55→15:58)
[2017-06-07] MEDS: NYSTATIN 500,000 UNIT/5 ML UDCUP SWISH/SWAL SCH ×4 (08:56→21:54)
[2017-06-07] MEDS: LEVOFLOXACIN INJ 500 MG in PREMIX 1 EACH IV SCH (09:03)
[2017-06-07] MEDS: BUDESONIDE/FORMOTEROL 160-4.5 INHALER 6 GM INH SCH ×2 (09:04→22:08)
[2017-06-07] MEDS: DICLOFENAC 1.3% PATCH 5/PACK TRANSDERM SCH ×2 (09:12→22:13)
[2017-06-07] MEDS: ENOXAPARIN 40 MG/0.4 ML SYRINGE SUBCUT SCH (21:55)
[2017-06-07] MEDS: ZALEPLON 5 MG CAPSULE PO PRN (22:04)
[2017-06-07] MEDS: traZODone 50 MG TABLET PO PRN (22:04)
[2017-06-08] MEDS: ALBUTEROL/IPRATROPIUM 3 ML NEB RESP TX SCH ×5 (00:10→23:55)
[2017-06-08] MEDS: ALBUTEROL 0.4 MG/ML 30 ML/BOTTLE PO SCH ×3 (00:50→16:00)
[2017-06-08] MEDS: methylPREDNISolone SOD SUC 40 MG/1 ML VIAL IV SCH ×4 (04:15→20:55)
[2017-06-08] MEDS: LEVOTHYROXINE 150 MCG TABLET PO SCH (05:57)
[2017-06-08 06:08] LABS: Basophils % 0.3 % (0.0-0.8); Hematocrit 36.4 VOL% (35.7-47.0); Hemoglobin 12.2 GM/DL (12.0-16.0); Immature Granulocytes % 7.7 %; Immature Granulocytes Absolute 1.09 #; Lymphocytes # 0.5 10*3/uL (1.4-4.0); Lymphocytes % 3.8 % (21.3-54.2); Mean Corpuscular HGB Conc 33.5 GM/DL (32-36); Mean Corpuscular Hemoglobin 28 PG (27-34); Mean Corpuscular Volume 84.8 FL (87-102); Mean Platelet Volume 9.8 FL (9.6-12.0); Monocytes # 0.4 10*3/uL (0.11-0.8); Monocytes % 2.6 % (1.7-12.7); Neutrophils # 12.2 10*3/uL (1.4-7.4); Neutrophils % 85.6 % (38.7-73.9); Platelet Count 372 T/CUMM (130-400); Red Blood Count 4.29 MC/CUMM (3.8-5.5); Red Cell Distribution Width 16.7 % (9.3-17.3); White Blood Count 14.2 T/CUMM (4-12)
[2017-06-08 06:16] LABS: Calcium 8.4 MG/DL (8.5-10.1); Osmolality,Calculated 290.7 MOS/KG (273-304); Potassium 4.8 MMOL/L (3.5-5.1)
[2017-06-08 06:29] LABS: Band Neutrophils 2 % (0-10); Giant Platelets Few; Hypochromasia 1+; Lymphocytes 4 % (20-55); Ovalocytes Slight; Platelet Estimate Adequate; Segmented Neutrophils 92 % (50-85); Total Cells Counted 100
[2017-06-08] MEDS: DORNASE ALFA 2.5 MG/2.5 ML VIAL RESP TX SCH ×2 (07:10→19:11)
[2017-06-08] MEDS: DILTIAZEM CD 180 MG CAPSULE PO SCH (08:47)
[2017-06-08] MEDS: PANTOPRAZOLE 40 MG TABLET PO SCH (08:47)
[2017-06-08] MEDS: THEOPHYLLINE ER (24 HR) 400 MG CAPSULE PO SCH (08:47)
[2017-06-08] MEDS: FLUoxetine 20 MG CAPSULE PO SCH (08:48)
[2017-06-08] MEDS: MONTELUKAST 10 MG TABLET PO SCH ×2 (08:48→20:54)
[2017-06-08] MEDS: MAGNESIUM OXIDE 400 MG TABLET PO SCH (08:48)
[2017-06-08] MEDS: glipiZIDE 10 MG TABLET PO SCH ×2 (08:48→15:57)
[2017-06-08] MEDS: MELOXICAM 7.5 MG TABLET PO SCH (08:48)
[2017-06-08] MEDS: POTASSIUM CHLORIDE 20 MEQ TABLET PO SCH (08:48)
[2017-06-08] MEDS: DOCUSATE SODIUM 100 MG CAPSULE PO PRN (08:48)
[2017-06-08] MEDS: NYSTATIN 500,000 UNIT/5 ML UDCUP SWISH/SWAL SCH ×4 (08:49→21:09)
[2017-06-08] MEDS: clonazePAM 0.5 MG TABLET PO PRN ×3 (08:49→20:55)
[2017-06-08] MEDS: LEVOFLOXACIN INJ 500 MG in PREMIX 1 EACH IV SCH (08:50)
[2017-06-08] MEDS: INSULIN GLARGINE 100 UNIT/ML SUBCUT SCH ×2 (08:51→09:07)
[2017-06-08] MEDS: INSULIN LISPRO 100 UNIT/ML SUBCUT SCH ×4 (08:51→20:54)
[2017-06-08] MEDS: DICLOFENAC 1.3% PATCH 5/PACK TRANSDERM SCH ×2 (09:07→20:53)
[2017-06-08] MEDS: BUDESONIDE/FORMOTEROL 160-4.5 INHALER 6 GM INH SCH ×2 (09:07→20:56)
[2017-06-08] MEDS: ENOXAPARIN 40 MG/0.4 ML SYRINGE SUBCUT SCH (20:54)
[2017-06-08] MEDS: ZALEPLON 5 MG CAPSULE PO PRN (20:55)
[2017-06-08] MEDS: traZODone 50 MG TABLET PO PRN (20:55)
[2017-06-09] MEDS: methylPREDNISolone SOD SUC 40 MG/1 ML VIAL IV SCH ×4 (04:38→21:12)
[2017-06-09] MEDS: LEVOTHYROXINE 150 MCG TABLET PO SCH (06:41)
[2017-06-09] MEDS: ALBUTEROL/IPRATROPIUM 3 ML NEB RESP TX SCH ×3 (06:45→19:43)
[2017-06-09] MEDS: DORNASE ALFA 2.5 MG/2.5 ML VIAL RESP TX SCH ×2 (06:50→19:43)
[2017-06-09] MEDS: LEVOFLOXACIN INJ 500 MG in PREMIX 1 EACH IV SCH (08:56)
[2017-06-09] MEDS: MELOXICAM 7.5 MG TABLET PO SCH (08:57)
[2017-06-09] MEDS: MONTELUKAST 10 MG TABLET PO SCH ×2 (08:57→20:42)
[2017-06-09] MEDS: NYSTATIN 500,000 UNIT/5 ML UDCUP SWISH/SWAL SCH ×4 (08:57→20:43)
[2017-06-09] MEDS: glipiZIDE 10 MG TABLET PO SCH ×2 (08:57→16:50)
[2017-06-09] MEDS: POTASSIUM CHLORIDE 20 MEQ TABLET PO SCH (08:58)
[2017-06-09] MEDS: THEOPHYLLINE ER (24 HR) 400 MG CAPSULE PO SCH (08:58)
[2017-06-09] MEDS: DILTIAZEM CD 180 MG CAPSULE PO SCH (08:58)
[2017-06-09] MEDS: PANTOPRAZOLE 40 MG TABLET PO SCH (08:58)
[2017-06-09] MEDS: MAGNESIUM OXIDE 400 MG TABLET PO SCH (08:58)
[2017-06-09] MEDS: FLUoxetine 20 MG CAPSULE PO SCH (08:58)
[2017-06-09] MEDS: INSULIN GLARGINE 100 UNIT/ML SUBCUT SCH (08:59)
[2017-06-09] MEDS: INSULIN LISPRO 100 UNIT/ML SUBCUT SCH ×4 (08:59→20:55)
[2017-06-09] MEDS: clonazePAM 0.5 MG TABLET PO PRN ×2 (09:08→20:46)
[2017-06-09] MEDS: DICLOFENAC 1.3% PATCH 5/PACK TRANSDERM SCH ×2 (11:49→20:44)
[2017-06-09] MEDS: BUDESONIDE/FORMOTEROL 160-4.5 INHALER 6 GM INH SCH ×2 (12:01→20:57)
[2017-06-09] MEDS: ALBUTEROL 0.4 MG/ML 30 ML/BOTTLE PO SCH ×4 (12:02→16:53)
[2017-06-09] MEDS: ONDANSETRON 4 MG/2 ML VIAL IV PRN (17:58)
[2017-06-09] MEDS: traZODone 50 MG TABLET PO PRN (20:42)
[2017-06-09] MEDS: ZALEPLON 5 MG CAPSULE PO PRN (20:43)
[2017-06-09] MEDS: ENOXAPARIN 40 MG/0.4 ML SYRINGE SUBCUT SCH (20:44)
[2017-06-10] MEDS: ALBUTEROL/IPRATROPIUM 3 ML NEB RESP TX SCH ×2 (00:55→07:22)
[2017-06-10] MEDS: methylPREDNISolone SOD SUC 40 MG/1 ML VIAL IV SCH ×2 (04:08→08:56)
[2017-06-10 05:34] LABS: Basophils # 0.1 10*3/uL (0.0-0.2); Basophils % 0.3 % (0.0-0.8); Hematocrit 37.8 VOL% (35.7-47.0); Hemoglobin 12.3 GM/DL (12.0-16.0); Immature Granulocytes % 4.2 %; Immature Granulocytes Absolute 0.89 #; Lymphocytes # 0.5 10*3/uL (1.4-4.0); Lymphocytes % 2.2 % (21.3-54.2); Mean Corpuscular HGB Conc 32.5 GM/DL (32-36); Mean Corpuscular Hemoglobin 28 PG (27-34); Mean Corpuscular Volume 86.7 FL (87-102); Mean Platelet Volume 9.7 FL (9.6-12.0); Monocytes # 0.5 10*3/uL (0.11-0.8); Monocytes % 2.3 % (1.7-12.7); Neutrophils # 19.2 10*3/uL (1.4-7.4); Platelet Count 375 T/CUMM (130-400); Red Blood Count 4.36 MC/CUMM (3.8-5.5); Red Cell Distribution Width 16.4 % (9.3-17.3); White Blood Count 21.1 T/CUMM (4-12)
[2017-06-10 05:59] LABS: Calcium 8.7 MG/DL (8.5-10.1); Osmolality,Calculated 288.7 MOS/KG (273-304)
[2017-06-10 06:32] LABS: Band Neutrophils 1 % (0-10); Lymphocytes 3 % (20-55); Segmented Neutrophils 93 % (50-85); Total Cells Counted 100
[2017-06-10 06:33] LABS: Anisocytosis 1+; Hypochromasia Slight; Platelet Estimate Normal
[2017-06-10] MEDS: ALBUTEROL 0.4 MG/ML 30 ML/BOTTLE PO SCH ×2 (07:15→09:16)
[2017-06-10] MEDS: DORNASE ALFA 2.5 MG/2.5 ML VIAL RESP TX SCH (07:28)
[2017-06-10] MEDS: LEVOFLOXACIN INJ 500 MG in PREMIX 1 EACH IV SCH (08:53)
[2017-06-10] MEDS: INSULIN LISPRO 100 UNIT/ML SUBCUT SCH ×2 (08:54→13:03)
[2017-06-10] MEDS: INSULIN GLARGINE 100 UNIT/ML SUBCUT SCH (08:55)
[2017-06-10] MEDS: NYSTATIN 500,000 UNIT/5 ML UDCUP SWISH/SWAL SCH ×2 (08:56→13:04)
[2017-06-10] MEDS: clonazePAM 0.5 MG TABLET PO PRN (08:56)
[2017-06-10] MEDS: FLUoxetine 20 MG CAPSULE PO SCH (08:56)
[2017-06-10] MEDS: DILTIAZEM CD 180 MG CAPSULE PO SCH (08:57)
[2017-06-10] MEDS: MONTELUKAST 10 MG TABLET PO SCH (08:57)
[2017-06-10] MEDS: glipiZIDE 10 MG TABLET PO SCH (08:57)
[2017-06-10] MEDS: LEVOTHYROXINE 150 MCG TABLET PO SCH (08:57)
[2017-06-10] MEDS: PANTOPRAZOLE 40 MG TABLET PO SCH (08:58)
[2017-06-10] MEDS: POTASSIUM CHLORIDE 20 MEQ TABLET PO SCH (08:58)
[2017-06-10] MEDS: MELOXICAM 7.5 MG TABLET PO SCH (08:58)
[2017-06-10] MEDS: MAGNESIUM OXIDE 400 MG TABLET PO SCH (08:58)
[2017-06-10] MEDS: THEOPHYLLINE ER (24 HR) 400 MG CAPSULE PO SCH (08:58)
[2017-06-10] MEDS: BUDESONIDE/FORMOTEROL 160-4.5 INHALER 6 GM INH SCH (08:59)
[2017-06-10] MEDS: DICLOFENAC 1.3% PATCH 5/PACK TRANSDERM SCH (09:16)
[2017-06-10 11:30] VITALS: BP 117/68
== END 2017-06-10 14:25 | disposition home or self-care (01) | DRG 871 ==
LOC: EDBD → EDUNIT# → N.ED 08:05 → SUATTDRO 12:37 → N.EDINP 12:37 → N.CC 13:32 → N.2E 06-01 23:35
PROVIDERS: ADMIT Internal Medicine Geriatric Medicine; ATTEND Internal Medicine

== ENCOUNTER 2017-07-09 19:55 | Inpatient (IN) ==
[2017-07-09] MEDS ORDERED: cefTRIAXone 1,000 MG in SODIUM CHLORIDE 0.9% 100 ML IV STA (20:42)
[2017-07-09] MEDS ORDERED: ALBUTEROL/IPRATROPIUM 3 ML NEB RESP TX STA (20:42)
[2017-07-09 21:37] LABS: Basophils % 0.1 % (0.0-0.8); Eosinophils % 0.1 % (0.00-10.9); Hematocrit 38.9 VOL% (35.7-47.0); Hemoglobin 12.9 GM/DL (12.0-16.0); Immature Granulocytes % 0.6 %; Immature Granulocytes Absolute 0.08 #; Lymphocytes # 1.5 10*3/uL (1.4-4.0); Mean Corpuscular HGB Conc 33.2 GM/DL (32-36); Mean Corpuscular Hemoglobin 30 PG (27-34); Mean Corpuscular Volume 88.8 FL (87-102); Monocytes % 7.2 % (1.7-12.7); Neutrophils # 10.9 10*3/uL (1.4-7.4); Platelet Count 204 T/CUMM (130-400); Red Blood Count 4.38 MC/CUMM (3.8-5.5); Red Cell Distribution Width 18.3 % (9.3-17.3); White Blood Count 13.4 T/CUMM (4-12)
[2017-07-09 21:59] LABS: Albumin 2.5 G/DL (3.4-5.0); Bilirubin,Total 0.8 MG/DL (0.2-1.0); Calcium 9.1 MG/DL (8.5-10.1); Osmolality,Calculated 281.3 MOS/KG (273-304); Potassium 3.6 MMOL/L (3.5-5.1); Total Protein 6.1 G/DL (6.4-8.3)
[2017-07-09 22:00] LABS: Lactic Acid 0.9 MMOL/L (0.4-2.0)
[2017-07-10] MEDS ORDERED: DEXTROSE 50% 25 GM/50 ML VIAL IV PRN ×2 (00:49)
[2017-07-10] MEDS ORDERED: GLUCAGON 1 MG VIAL IM PRN ×2 (00:49)
[2017-07-10] MEDS: ATORVASTATIN 40 MG TABLET PO SCH ×2 (01:17→20:12)
[2017-07-10] MEDS: MONTELUKAST 10 MG TABLET PO SCH ×2 (01:17→20:12)
[2017-07-10] MEDS: DEXTROSE 5% NACL 0.45% 1,000 ML IV SCH ×2 (01:45→14:40)
[2017-07-10] MEDS: methylPREDNISolone SOD SUC 40 MG/1 ML VIAL IV SCH ×3 (03:52→18:02)
[2017-07-10] MEDS: BUDESONIDE 0.5 MG/2 ML NEB RESP TX SCH ×2 (07:00→19:26)
[2017-07-10] MEDS: LEVOTHYROXINE 150 MCG TABLET PO SCH (07:24)
[2017-07-10] MEDS: cefTRIAXone 2,000 MG in SYRINGE 1 EACH IV SCH (09:19)
[2017-07-10] MEDS: metFORMIN 500 MG TABLET PO SCH (09:22)
[2017-07-10] MEDS: POTASSIUM CHLORIDE 20 MEQ TABLET PO SCH (09:22)
[2017-07-10] MEDS: THEOPHYLLINE ER (24 HR) 400 MG CAPSULE PO SCH (09:22)
[2017-07-10] MEDS: DILTIAZEM CD 120 MG CAPSULE PO SCH (09:22)
[2017-07-10] MEDS: FLUoxetine 20 MG CAPSULE PO SCH (09:24)
[2017-07-10] MEDS: MELOXICAM 7.5 MG TABLET PO SCH (09:24)
[2017-07-10] MEDS: MAGNESIUM OXIDE 400 MG TABLET PO SCH (09:24)
[2017-07-10] MEDS: NICOTINE 14 MG/24 HR PATCH TRANSDERM SCH (09:24)
[2017-07-10] MEDS: glipiZIDE 10 MG TABLET PO SCH (09:24)
[2017-07-10] MEDS: INSULIN LISPRO 100 UNIT/ML SUBCUT SCH ×3 (13:49→20:12)
[2017-07-10] MEDS: clonazePAM 0.5 MG TABLET PO PRN ×2 (16:20→21:59)
[2017-07-10] MEDS: ALBUTEROL/IPRATROPIUM 3 ML NEB RESP TX PRN (19:26)
[2017-07-10] MEDS: traZODone 50 MG TABLET PO PRN (20:14)
[2017-07-11] MEDS: methylPREDNISolone SOD SUC 40 MG/1 ML VIAL IV SCH ×3 (01:51→17:16)
[2017-07-11] MEDS: DEXTROSE 5% NACL 0.45% 1,000 ML IV SCH ×2 (03:51→16:36)
[2017-07-11 06:04] LABS: Basophils % 0.1 % (0.0-0.8); Hematocrit 35.8 VOL% (35.7-47.0); Hemoglobin 12.1 GM/DL (12.0-16.0); Immature Granulocytes % 1.3 %; Immature Granulocytes Absolute 0.15 #; Lymphocytes # 0.9 10*3/uL (1.4-4.0); Lymphocytes % 7.6 % (21.3-54.2); Mean Corpuscular HGB Conc 33.8 GM/DL (32-36); Mean Corpuscular Hemoglobin 30 PG (27-34); Mean Corpuscular Volume 87.7 FL (87-102); Mean Platelet Volume 10.4 FL (9.6-12.0); Monocytes # 0.2 10*3/uL (0.11-0.8); Monocytes % 2.1 % (1.7-12.7); Neutrophils # 10.1 10*3/uL (1.4-7.4); Neutrophils % 88.9 % (38.7-73.9); Platelet Count 226 T/CUMM (130-400); Red Blood Count 4.08 MC/CUMM (3.8-5.5); Red Cell Distribution Width 17.4 % (9.3-17.3); White Blood Count 11.4 T/CUMM (4-12)
[2017-07-11] MEDS: LEVOTHYROXINE 150 MCG TABLET PO SCH (06:25)
[2017-07-11 06:46] LABS: Calcium 9.1 MG/DL (8.5-10.1); Osmolality,Calculated 286.5 MOS/KG (273-304); Potassium 3.4 MMOL/L (3.5-5.1)
[2017-07-11] MEDS: BUDESONIDE 0.5 MG/2 ML NEB RESP TX SCH ×2 (07:35→19:15)
[2017-07-11] MEDS: DILTIAZEM CD 120 MG CAPSULE PO SCH (08:54)
[2017-07-11] MEDS: THEOPHYLLINE ER (24 HR) 400 MG CAPSULE PO SCH (08:54)
[2017-07-11] MEDS: NICOTINE 14 MG/24 HR PATCH TRANSDERM SCH (08:54)
[2017-07-11] MEDS: MELOXICAM 7.5 MG TABLET PO SCH (08:55)
[2017-07-11] MEDS: INSULIN LISPRO 100 UNIT/ML SUBCUT SCH ×4 (08:55→20:56)
[2017-07-11] MEDS: FLUoxetine 20 MG CAPSULE PO SCH (08:55)
[2017-07-11] MEDS: metFORMIN 500 MG TABLET PO SCH (08:56)
[2017-07-11] MEDS: glipiZIDE 10 MG TABLET PO SCH (08:56)
[2017-07-11] MEDS: MAGNESIUM OXIDE 400 MG TABLET PO SCH (08:56)
[2017-07-11] MEDS: POTASSIUM CHLORIDE 20 MEQ TABLET PO SCH (08:56)
[2017-07-11] MEDS: cefTRIAXone 2,000 MG in SYRINGE 1 EACH IV SCH (11:15)
[2017-07-11] MEDS: clonazePAM 0.5 MG TABLET PO PRN (15:41)
[2017-07-11] MEDS: DORNASE ALFA 2.5 MG/2.5 ML VIAL RESP TX SCH (19:15)
[2017-07-11 19:29] LABS: Free T4 (Free Thyroxine) 1.5 NG/DL (0.76-1.46); Thyroid Stimulating Hormone 0.533 uIU/ml (0.358-3.74)
[2017-07-11] MEDS: ONDANSETRON 4 MG/2 ML VIAL IV PRN (19:46)
[2017-07-11] MEDS: ATORVASTATIN 40 MG TABLET PO SCH (20:25)
[2017-07-11] MEDS: MONTELUKAST 10 MG TABLET PO SCH (20:25)
[2017-07-11] MEDS: traZODone 50 MG TABLET PO PRN (20:25)
[2017-07-11] MEDS: ALBUTEROL 2 MG TABLET PO SCH (22:13)
[2017-07-11] MEDS: ALBUTEROL/IPRATROPIUM 3 ML NEB RESP TX PRN (22:33)
[2017-07-12] MEDS: methylPREDNISolone SOD SUC 40 MG/1 ML VIAL IV SCH ×3 (01:09→18:23)
[2017-07-12 05:59] LABS: Osmolality,Calculated 291.7 MOS/KG (273-304); Potassium 3.7 MMOL/L (3.5-5.1)
[2017-07-12] MEDS: LEVOTHYROXINE 150 MCG TABLET PO SCH (06:04)
[2017-07-12] MEDS: DEXTROSE 5% NACL 0.45% 1,000 ML IV SCH ×3 (06:04→21:13)
[2017-07-12] MEDS: ALBUTEROL 2 MG TABLET PO SCH ×3 (06:04→21:18)
[2017-07-12] MEDS: BUDESONIDE 0.5 MG/2 ML NEB RESP TX SCH ×2 (06:50→20:00)
[2017-07-12] MEDS: DORNASE ALFA 2.5 MG/2.5 ML VIAL RESP TX SCH ×2 (06:50→20:00)
[2017-07-12 07:49] LABS: Basophils % 0.1 % (0.0-0.8); Hemoglobin 11.8 GM/DL (12.0-16.0); Immature Granulocytes % 1.8 %; Immature Granulocytes Absolute 0.26 #; Lymphocytes # 0.5 10*3/uL (1.4-4.0); Lymphocytes % 3.2 % (21.3-54.2); Mean Corpuscular HGB Conc 32.8 GM/DL (32-36); Mean Corpuscular Hemoglobin 30 PG (27-34); Mean Corpuscular Volume 90.9 FL (87-102); Mean Platelet Volume 10.5 FL (9.6-12.0); Monocytes # 0.3 10*3/uL (0.11-0.8); Monocytes % 2.3 % (1.7-12.7); Neutrophils # 13.3 10*3/uL (1.4-7.4); Neutrophils % 92.6 % (38.7-73.9); Platelet Count 248 T/CUMM (130-400); Red Blood Count 3.96 MC/CUMM (3.8-5.5); Red Cell Distribution Width 17.3 % (9.3-17.3); White Blood Count 14.3 T/CUMM (4-12)
[2017-07-12 08:09] LABS: Band Neutrophils 1 % (0-10); Hypochromasia 1+; Lymphocytes 3 % (20-55); Segmented Neutrophils 94 % (50-85); Total Cells Counted 100
[2017-07-12 08:10] LABS: Microcytosis 1+; Ovalocytes Slight
[2017-07-12] MEDS: NICOTINE 14 MG/24 HR PATCH TRANSDERM SCH (08:41)
[2017-07-12] MEDS: POTASSIUM CHLORIDE 20 MEQ TABLET PO SCH (08:41)
[2017-07-12] MEDS: metFORMIN 500 MG TABLET PO SCH (08:42)
[2017-07-12] MEDS: DILTIAZEM CD 120 MG CAPSULE PO SCH (08:42)
[2017-07-12] MEDS: MELOXICAM 7.5 MG TABLET PO SCH (08:43)
[2017-07-12] MEDS: FLUoxetine 20 MG CAPSULE PO SCH (08:43)
[2017-07-12] MEDS: glipiZIDE 10 MG TABLET PO SCH (08:43)
[2017-07-12] MEDS: INSULIN LISPRO 100 UNIT/ML SUBCUT SCH ×4 (08:44→21:27)
[2017-07-12] MEDS: THEOPHYLLINE ER (24 HR) 400 MG CAPSULE PO SCH (08:44)
[2017-07-12] MEDS: MAGNESIUM OXIDE 400 MG TABLET PO SCH (08:52)
[2017-07-12] MEDS: cefTRIAXone 2,000 MG in SYRINGE 1 EACH IV SCH (08:52)
[2017-07-12] MEDS: ATORVASTATIN 40 MG TABLET PO SCH ×2 (21:15→21:19)
[2017-07-12] MEDS: MONTELUKAST 10 MG TABLET PO SCH (21:18)
[2017-07-12] MEDS: clonazePAM 0.5 MG TABLET PO PRN (21:27)
[2017-07-13] MEDS: methylPREDNISolone SOD SUC 40 MG/1 ML VIAL IV SCH ×3 (01:55→18:25)
[2017-07-13 05:57] LABS: Basophils % 0.3 % (0.0-0.8); Hematocrit 35.7 VOL% (35.7-47.0); Hemoglobin 11.7 GM/DL (12.0-16.0); Immature Granulocytes % 3.5 %; Immature Granulocytes Absolute 0.44 #; Lymphocytes # 0.4 10*3/uL (1.4-4.0); Lymphocytes % 3.5 % (21.3-54.2); Mean Corpuscular HGB Conc 32.8 GM/DL (32-36); Mean Corpuscular Hemoglobin 29 PG (27-34); Mean Corpuscular Volume 89.3 FL (87-102); Mean Platelet Volume 10.2 FL (9.6-12.0); Monocytes # 0.5 10*3/uL (0.11-0.8); Monocytes % 3.7 % (1.7-12.7); Neutrophils # 11.1 10*3/uL (1.4-7.4); Platelet Count 269 T/CUMM (130-400); Red Cell Distribution Width 17.3 % (9.3-17.3); White Blood Count 12.4 T/CUMM (4-12)
[2017-07-13] MEDS: ALBUTEROL 2 MG TABLET PO SCH ×3 (06:23→21:18)
[2017-07-13] MEDS: LEVOTHYROXINE 150 MCG TABLET PO SCH (06:23)
[2017-07-13 06:29] LABS: Band Neutrophils 1 % (0-10); Giant Platelets Few; Hypochromasia 1+; Lymphocytes 6 % (20-55); Microcytosis 1+; Osmolality,Calculated 294.4 MOS/KG (273-304); Ovalocytes Slight; Platelet Estimate Adequate; Potassium 4.1 MMOL/L (3.5-5.1); Segmented Neutrophils 92 % (50-85); Total Cells Counted 100
[2017-07-13] MEDS: DORNASE ALFA 2.5 MG/2.5 ML VIAL RESP TX SCH ×2 (08:28→19:41)
[2017-07-13] MEDS: BUDESONIDE 0.5 MG/2 ML NEB RESP TX SCH ×2 (08:28→19:41)
[2017-07-13] MEDS: POTASSIUM CHLORIDE 20 MEQ TABLET PO SCH (10:25)
[2017-07-13] MEDS: clonazePAM 0.5 MG TABLET PO PRN ×2 (10:25→18:26)
[2017-07-13] MEDS: glipiZIDE 10 MG TABLET PO SCH (10:25)
[2017-07-13] MEDS: INSULIN LISPRO 100 UNIT/ML SUBCUT SCH ×4 (10:25→21:18)
[2017-07-13] MEDS: MAGNESIUM OXIDE 400 MG TABLET PO SCH (10:25)
[2017-07-13] MEDS: MELOXICAM 7.5 MG TABLET PO SCH (10:25)
[2017-07-13] MEDS: FLUoxetine 20 MG CAPSULE PO SCH (10:25)
[2017-07-13] MEDS: metFORMIN 500 MG TABLET PO SCH (10:25)
[2017-07-13] MEDS: THEOPHYLLINE ER (24 HR) 400 MG CAPSULE PO SCH (10:25)
[2017-07-13] MEDS: NICOTINE 14 MG/24 HR PATCH TRANSDERM SCH (10:25)
[2017-07-13] MEDS: DILTIAZEM CD 120 MG CAPSULE PO SCH (11:26)
[2017-07-13] MEDS: cefTRIAXone 2,000 MG in SYRINGE 1 EACH IV SCH (11:35)
[2017-07-13] MEDS: VANCOMYCIN INJ 1,250 MG in SODIUM CHLORIDE 0.9% 250 ML IV SCH ×2 (15:08→23:43)
[2017-07-13] MEDS: ALBUTEROL/IPRATROPIUM 3 ML NEB RESP TX PRN (19:41)
[2017-07-13] MEDS: MONTELUKAST 10 MG TABLET PO SCH (21:18)
[2017-07-13] MEDS: traZODone 50 MG TABLET PO PRN (21:18)
[2017-07-13] MEDS: ATORVASTATIN 40 MG TABLET PO SCH (21:18)
[2017-07-13] MEDS: ONDANSETRON 4 MG/2 ML VIAL IV PRN (22:01)
[2017-07-14] MEDS: methylPREDNISolone SOD SUC 40 MG/1 ML VIAL IV SCH ×3 (02:51→18:35)
[2017-07-14] MEDS: ALBUTEROL 2 MG TABLET PO SCH ×3 (06:38→21:02)
[2017-07-14] MEDS: LEVOTHYROXINE 150 MCG TABLET PO SCH (06:38)
[2017-07-14] MEDS: BUDESONIDE 0.5 MG/2 ML NEB RESP TX SCH ×2 (07:15→19:32)
[2017-07-14] MEDS: DORNASE ALFA 2.5 MG/2.5 ML VIAL RESP TX SCH ×2 (07:15→19:32)
[2017-07-14] MEDS: FLUoxetine 20 MG CAPSULE PO SCH (10:15)
[2017-07-14] MEDS: metFORMIN 500 MG TABLET PO SCH (10:15)
[2017-07-14] MEDS: NICOTINE 14 MG/24 HR PATCH TRANSDERM SCH (10:15)
[2017-07-14] MEDS: POTASSIUM CHLORIDE 20 MEQ TABLET PO SCH (10:15)
[2017-07-14] MEDS: DILTIAZEM CD 120 MG CAPSULE PO SCH (10:15)
[2017-07-14] MEDS: MAGNESIUM OXIDE 400 MG TABLET PO SCH (10:15)
[2017-07-14] MEDS: INSULIN LISPRO 100 UNIT/ML SUBCUT SCH ×4 (10:15→21:02)
[2017-07-14] MEDS: clonazePAM 0.5 MG TABLET PO PRN ×2 (10:15→18:46)
[2017-07-14] MEDS: THEOPHYLLINE ER (24 HR) 400 MG CAPSULE PO SCH (10:15)
[2017-07-14] MEDS: MELOXICAM 7.5 MG TABLET PO SCH (10:15)
[2017-07-14] MEDS: glipiZIDE 10 MG TABLET PO SCH (10:15)
[2017-07-14] MEDS: POLYETHYLENE GLYCOL POWDER 17 GM PACK PO SCH (11:58)
[2017-07-14] MEDS: INSULIN GLARGINE 100 UNIT/ML SUBCUT SCH (11:58)
[2017-07-14] MEDS: VANCOMYCIN INJ 1,250 MG in SODIUM CHLORIDE 0.9% 250 ML IV SCH ×2 (11:58→23:18)
[2017-07-14] MEDS: ATORVASTATIN 40 MG TABLET PO SCH (21:01)
[2017-07-14] MEDS: MONTELUKAST 10 MG TABLET PO SCH (21:01)
[2017-07-14] MEDS: traZODone 50 MG TABLET PO PRN (23:18)
[2017-07-15] MEDS: methylPREDNISolone SOD SUC 40 MG/1 ML VIAL IV SCH ×2 (01:18→10:21)
[2017-07-15] MEDS: ONDANSETRON 4 MG/2 ML VIAL IV PRN (01:18)
[2017-07-15 06:00] LABS: Basophils # 0.1 10*3/uL (0.0-0.2); Basophils % 0.6 % (0.0-0.8); Hemoglobin 11.6 GM/DL (12.0-16.0); Immature Granulocytes % 7.6 %; Immature Granulocytes Absolute 1.28 #; Lymphocytes # 0.7 10*3/uL (1.4-4.0); Lymphocytes % 3.9 % (21.3-54.2); Mean Corpuscular HGB Conc 32.2 GM/DL (32-36); Mean Corpuscular Hemoglobin 29 PG (27-34); Mean Corpuscular Volume 90.2 FL (87-102); Mean Platelet Volume 9.8 FL (9.6-12.0); Monocytes # 0.6 10*3/uL (0.11-0.8); Monocytes % 3.3 % (1.7-12.7); Neutrophils # 14.2 10*3/uL (1.4-7.4); Neutrophils % 84.6 % (38.7-73.9); Platelet Count 282 T/CUMM (130-400); Red Blood Count 3.99 MC/CUMM (3.8-5.5); Red Cell Distribution Width 17.3 % (9.3-17.3); White Blood Count 16.8 T/CUMM (4-12)
[2017-07-15] MEDS: ALBUTEROL 2 MG TABLET PO SCH ×2 (06:10→14:21)
[2017-07-15] MEDS: LEVOTHYROXINE 150 MCG TABLET PO SCH (06:10)
[2017-07-15 06:22] LABS: Calcium 9.2 MG/DL (8.5-10.1); Osmolality,Calculated 295.5 MOS/KG (273-304); Potassium 4.9 MMOL/L (3.5-5.1)
[2017-07-15 06:47] LABS: Band Neutrophils 1 % (0-10); Hypochromasia 1+; Lymphocytes 3 % (20-55); Platelet Estimate Adequate; Segmented Neutrophils 91 % (50-85); Total Cells Counted 100
[2017-07-15] MEDS: MELOXICAM 7.5 MG TABLET PO SCH (07:29)
[2017-07-15] MEDS: DORNASE ALFA 2.5 MG/2.5 ML VIAL RESP TX SCH (07:52)
[2017-07-15] MEDS: BUDESONIDE 0.5 MG/2 ML NEB RESP TX SCH (07:52)
[2017-07-15] MEDS: clonazePAM 0.5 MG TABLET PO PRN (07:55)
[2017-07-15] MEDS: INSULIN GLARGINE 100 UNIT/ML SUBCUT SCH (09:29)
[2017-07-15] MEDS: FLUoxetine 20 MG CAPSULE PO SCH (09:29)
[2017-07-15] MEDS: INSULIN LISPRO 100 UNIT/ML SUBCUT SCH ×3 (09:29→16:24)
[2017-07-15] MEDS: MAGNESIUM OXIDE 400 MG TABLET PO SCH (09:29)
[2017-07-15] MEDS: POLYETHYLENE GLYCOL POWDER 17 GM PACK PO SCH (09:29)
[2017-07-15] MEDS: glipiZIDE 10 MG TABLET PO SCH (09:29)
[2017-07-15] MEDS: metFORMIN 500 MG TABLET PO SCH (09:29)
[2017-07-15] MEDS: THEOPHYLLINE ER (24 HR) 400 MG CAPSULE PO SCH (09:29)
[2017-07-15] MEDS: POTASSIUM CHLORIDE 20 MEQ TABLET PO SCH (09:29)
[2017-07-15] MEDS: NICOTINE 14 MG/24 HR PATCH TRANSDERM SCH (09:29)
[2017-07-15] MEDS: DILTIAZEM CD 120 MG CAPSULE PO SCH (09:29)
[2017-07-15] MEDS: VANCOMYCIN INJ 1,250 MG in SODIUM CHLORIDE 0.9% 250 ML IV SCH (12:05)
[2017-07-15 15:30] VITALS: BP 122/69
== END 2017-07-15 18:00 | disposition home health service (06) | DRG 190 ==
LOC: EDUNIT# → N.ED 19:55 → SUATTDRO 22:45 → N.EDINP 22:45 → N.CC 07-10 00:07 → N.TELES 07-11 02:55
PROVIDERS: ADMIT Internal Medicine Infectious Disease

== ENCOUNTER 2017-07-22 16:13 | Inpatient (IN) ==
[2017-07-22] MEDS ORDERED: ALBUTEROL/IPRATROPIUM 3 ML NEB RESP TX STA (16:59)
[2017-07-22] MEDS ORDERED: SODIUM CHLORIDE 0.9% 1,000 ML IV STA (16:59)
[2017-07-22] MEDS ORDERED: methylPREDNISolone SOD SUC 125 MG/2 ML VIAL IV STA (16:59)
[2017-07-22 17:22] LABS: Basophils # 0.1 10*3/uL (0.0-0.2); Basophils % 0.3 % (0.0-0.8); Eosinophils # 0.1 10*3/uL (0.0-0.87); Eosinophils % 0.4 % (0.00-10.9); Hematocrit 42.6 VOL% (35.7-47.0); Hemoglobin 14.6 GM/DL (12.0-16.0); Immature Granulocytes % 4.3 %; Immature Granulocytes Absolute 0.83 #; Lymphocytes # 2.3 10*3/uL (1.4-4.0); Mean Corpuscular HGB Conc 34.3 GM/DL (32-36); Mean Corpuscular Hemoglobin 29 PG (27-34); Mean Corpuscular Volume 85.9 FL (87-102); Mean Platelet Volume 10.4 FL (9.6-12.0); Monocytes # 2.1 10*3/uL (0.11-0.8); Monocytes % 10.9 % (1.7-12.7); Neutrophils # 13.8 10*3/uL (1.4-7.4); Neutrophils % 72.1 % (38.7-73.9); Platelet Count 307 T/CUMM (130-400); Red Blood Count 4.96 MC/CUMM (3.8-5.5); White Blood Count 19.1 T/CUMM (4-12)
[2017-07-22 17:30] LABS: PT Patient Result 10.3 SECS; Partial Thromboplastin Time 23.6 SECS (0-40)
[2017-07-22 17:45] LABS: Alanine Aminotransferase 29 U/L (13-56); Albumin 2.9 G/DL (3.4-5.0); Alkaline Phosphatase 92 U/L (45-117); Aspartate Amino Transferase 15 U/L (0-37); Blood Urea Nitrogen 17 MG/DL (7-18); Calcium 8.8 MG/DL (8.5-10.1); Free T4 (Free Thyroxine) 1.42 NG/DL (0.76-1.46); Glucose 185 MG/DL (74-106); Osmolality,Calculated 281.7 MOS/KG (273-304); Potassium 3.6 MMOL/L (3.5-5.1); Sodium 138 MMOL/L (136-145); Total Protein 6.2 G/DL (6.4-8.3)
[2017-07-22 17:50] LABS: Apearance,Urine CLEAR (Clear); Bilirubin,Urine Negative (Negative); Blood, Urine Negative (Negative); Glucose,Urine (UA) Negative (Negative); Ketones,Urine Negative (Negative); Mucus,Urine Occasional /LPF (Occasional); Nitrite,Urine Negative (Negative); Protein,Urine Negative; Squamous Epithelial Cell,Urine Occasional /HPF (0-10); Transitional Epi Cells,Urine Occasional /HPF (<1); Urine Color Yellow (Yellow); Urine Specific Gravity 1.011 (1.001-1.035); Urine Urobilinogen < 2.0 EU/DL (0.2-1.0); WBC,Urine 1 /HPF (0-6)
[2017-07-22 17:57] LABS: Lactic Acid 1.1 MMOL/L (0.4-2.0)
[2017-07-22] MEDS ORDERED: DEXTROSE 50% 25 GM/50 ML VIAL IV PRN (19:13)
[2017-07-22] MEDS ORDERED: GLUCAGON 1 MG VIAL IM PRN (19:13)
[2017-07-22] MEDS: ALBUTEROL/IPRATROPIUM 3 ML NEB RESP TX SCH (20:18)
[2017-07-22] MEDS: BUDESONIDE 0.5 MG/2 ML NEB RESP TX SCH (20:18)
[2017-07-22 21:07] LABS: Band Neutrophils 1 % (0-10); Lymphocytes 17 % (20-55); Platelet Estimate Normal; Segmented Neutrophils 74 % (50-85); Total Cells Counted 100
[2017-07-22] MEDS: DOCUSATE SODIUM 100 MG CAPSULE PO SCH (21:59)
[2017-07-22] MEDS: BISACODYL 5 MG TABLET PO SCH (21:59)
[2017-07-22] MEDS: ALBUTEROL 2 MG TABLET PO SCH (22:00)
[2017-07-22] MEDS: INSULIN REGULAR 100 UNIT/ML SUBCUT SCH (22:00)
[2017-07-22] MEDS: MONTELUKAST 10 MG TABLET PO SCH (22:00)
[2017-07-22] MEDS: ATORVASTATIN 40 MG TABLET PO SCH (22:00)
[2017-07-22] MEDS: traZODone 50 MG TABLET PO PRN (22:00)
[2017-07-22] MEDS: traMADol 50 MG TABLET PO PRN (22:01)
[2017-07-23] MEDS: ALBUTEROL/IPRATROPIUM 3 ML NEB RESP TX SCH ×4 (00:56→19:18)
[2017-07-23 06:05] LABS: Basophils % 0.2 % (0.0-0.8); Hematocrit 40.8 VOL% (35.7-47.0); Hemoglobin 13.4 GM/DL (12.0-16.0); Immature Granulocytes % 5.1 %; Immature Granulocytes Absolute 0.81 #; Lymphocytes # 0.8 10*3/uL (1.4-4.0); Lymphocytes % 5.1 % (21.3-54.2); Mean Corpuscular HGB Conc 32.8 GM/DL (32-36); Mean Corpuscular Hemoglobin 29 PG (27-34); Mean Corpuscular Volume 88.3 FL (87-102); Mean Platelet Volume 10.2 FL (9.6-12.0); Monocytes # 0.3 10*3/uL (0.11-0.8); Neutrophils # 13.9 10*3/uL (1.4-7.4); Neutrophils % 87.6 % (38.7-73.9); Platelet Count 277 T/CUMM (130-400); Red Blood Count 4.62 MC/CUMM (3.8-5.5); Red Cell Distribution Width 17.5 % (9.3-17.3); White Blood Count 15.8 T/CUMM (4-12)
[2017-07-23] MEDS: LEVOTHYROXINE 150 MCG TABLET PO SCH (06:27)
[2017-07-23 06:30] LABS: Band Neutrophils 2 % (0-10); Hypochromasia 1+; Lymphocytes 6 % (20-55); Segmented Neutrophils 90 % (50-85); Total Cells Counted 100
[2017-07-23 06:31] LABS: Microcytosis 1+; Platelet Estimate Normal
[2017-07-23 06:39] LABS: Albumin 2.8 G/DL (3.4-5.0); Bilirubin,Total 0.9 MG/DL (0.2-1.0); Calcium 9.4 MG/DL (8.5-10.1); Osmolality,Calculated 287.7 MOS/KG (273-304); Potassium 3.9 MMOL/L (3.5-5.1); Total Protein 6.3 G/DL (6.4-8.3)
[2017-07-23] MEDS: BUDESONIDE 0.5 MG/2 ML NEB RESP TX SCH ×2 (06:50→19:18)
[2017-07-23] MEDS: FLUoxetine 20 MG CAPSULE PO SCH (09:20)
[2017-07-23] MEDS: DILTIAZEM CD 180 MG CAPSULE PO SCH (09:21)
[2017-07-23] MEDS: metFORMIN 500 MG TABLET PO SCH (09:21)
[2017-07-23] MEDS: POTASSIUM CHLORIDE 20 MEQ TABLET PO SCH (09:21)
[2017-07-23] MEDS: MAGNESIUM OXIDE 400 MG TABLET PO SCH (09:22)
[2017-07-23] MEDS: THEOPHYLLINE ER (24 HR) 400 MG CAPSULE PO SCH (09:22)
[2017-07-23] MEDS: ALBUTEROL 2 MG TABLET PO SCH ×2 (09:22→20:36)
[2017-07-23] MEDS: predniSONE 10 MG TABLET PO SCH (09:23)
[2017-07-23] MEDS: MELOXICAM 7.5 MG TABLET PO SCH (09:23)
[2017-07-23] MEDS: glipiZIDE 10 MG TABLET PO SCH (09:24)
[2017-07-23] MEDS: INSULIN REGULAR 100 UNIT/ML SUBCUT SCH ×4 (09:39→22:45)
[2017-07-23] MEDS: traMADol 50 MG TABLET PO PRN (12:35)
[2017-07-23] MEDS: PROMETHAZINE 25 MG/1 ML VIAL IM PRN (17:38)
[2017-07-23] MEDS: DOXYCYCLINE HYCLATE 100 MG CAPSULE PO SCH (20:36)
[2017-07-23] MEDS: MONTELUKAST 10 MG TABLET PO SCH (20:36)
[2017-07-23] MEDS: DOCUSATE SODIUM 100 MG CAPSULE PO SCH (20:36)
[2017-07-23] MEDS: traZODone 50 MG TABLET PO PRN (20:37)
[2017-07-23] MEDS: ATORVASTATIN 40 MG TABLET PO SCH (20:37)
[2017-07-23] MEDS: BISACODYL 5 MG TABLET PO SCH (20:37)
[2017-07-23] MEDS: ENOXAPARIN 40 MG/0.4 ML SYRINGE SUBCUT SCH (20:39)
[2017-07-23] MEDS: MEROPENEM 1,000 MG in SYRINGE 1 EACH IV SCH (20:40)
[2017-07-24] MEDS: traMADol 50 MG TABLET PO PRN ×2 (00:17→12:43)
[2017-07-24] MEDS: ALBUTEROL/IPRATROPIUM 3 ML NEB RESP TX SCH ×4 (00:29→19:47)
[2017-07-24] MEDS: MEROPENEM 1,000 MG in SYRINGE 1 EACH IV SCH ×3 (04:37→21:05)
[2017-07-24 05:20] LABS: Basophils % 0.1 % (0.0-0.8); Eosinophils % 0.1 % (0.00-10.9); Hematocrit 34.9 VOL% (35.7-47.0); Hemoglobin 11.4 GM/DL (12.0-16.0); Immature Granulocytes % 1.7 %; Immature Granulocytes Absolute 0.25 #; Lymphocytes # 2.1 10*3/uL (1.4-4.0); Lymphocytes % 14.5 % (21.3-54.2); Mean Corpuscular HGB Conc 32.7 GM/DL (32-36); Mean Corpuscular Hemoglobin 29 PG (27-34); Mean Corpuscular Volume 88.8 FL (87-102); Mean Platelet Volume 9.8 FL (9.6-12.0); Monocytes # 1.3 10*3/uL (0.11-0.8); Monocytes % 8.5 % (1.7-12.7); Neutrophils # 11.1 10*3/uL (1.4-7.4); Neutrophils % 75.1 % (38.7-73.9); Platelet Count 227 T/CUMM (130-400); Red Blood Count 3.93 MC/CUMM (3.8-5.5); Red Cell Distribution Width 17.9 % (9.3-17.3); White Blood Count 14.7 T/CUMM (4-12)
[2017-07-24 05:40] LABS: Calcium 8.5 MG/DL (8.5-10.1); Osmolality,Calculated 285.1 MOS/KG (273-304); Potassium 3.5 MMOL/L (3.5-5.1)
[2017-07-24] MEDS: LEVOTHYROXINE 150 MCG TABLET PO SCH (05:53)
[2017-07-24] MEDS: BUDESONIDE 0.5 MG/2 ML NEB RESP TX SCH ×2 (07:30→19:47)
[2017-07-24] MEDS: ALBUTEROL 2 MG TABLET PO SCH ×2 (08:30→21:06)
[2017-07-24] MEDS: predniSONE 10 MG TABLET PO SCH (08:30)
[2017-07-24] MEDS: metFORMIN 500 MG TABLET PO SCH (08:30)
[2017-07-24] MEDS: THEOPHYLLINE ER (24 HR) 400 MG CAPSULE PO SCH (08:30)
[2017-07-24] MEDS: MAGNESIUM OXIDE 400 MG TABLET PO SCH (08:31)
[2017-07-24] MEDS: FLUoxetine 20 MG CAPSULE PO SCH (08:31)
[2017-07-24] MEDS: DILTIAZEM CD 180 MG CAPSULE PO SCH (08:31)
[2017-07-24] MEDS: MELOXICAM 7.5 MG TABLET PO SCH (08:32)
[2017-07-24] MEDS: DOXYCYCLINE HYCLATE 100 MG CAPSULE PO SCH ×2 (08:32→21:05)
[2017-07-24] MEDS: POTASSIUM CHLORIDE 20 MEQ TABLET PO SCH (08:32)
[2017-07-24] MEDS: INSULIN REGULAR 100 UNIT/ML SUBCUT SCH ×4 (08:35→21:10)
[2017-07-24] MEDS: glipiZIDE 10 MG TABLET PO SCH (08:36)
[2017-07-24] MEDS: DOCUSATE SODIUM 100 MG CAPSULE PO SCH (21:05)
[2017-07-24] MEDS: ATORVASTATIN 40 MG TABLET PO SCH (21:06)
[2017-07-24] MEDS: BISACODYL 5 MG TABLET PO SCH (21:06)
[2017-07-24] MEDS: traZODone 50 MG TABLET PO PRN (21:06)
[2017-07-24] MEDS: MONTELUKAST 10 MG TABLET PO SCH (21:06)
[2017-07-24] MEDS: ENOXAPARIN 40 MG/0.4 ML SYRINGE SUBCUT SCH (21:08)
[2017-07-25] MEDS: ALBUTEROL/IPRATROPIUM 3 ML NEB RESP TX SCH ×4 (00:13→19:07)
[2017-07-25] MEDS: MEROPENEM 1,000 MG in SYRINGE 1 EACH IV SCH ×3 (04:18→21:18)
[2017-07-25 05:44] LABS: Basophils % 0.2 % (0.0-0.8); Eosinophils % 0.3 % (0.00-10.9); Hematocrit 34.1 VOL% (35.7-47.0); Hemoglobin 10.9 GM/DL (12.0-16.0); Immature Granulocytes % 1.6 %; Lymphocytes # 2.3 10*3/uL (1.4-4.0); Lymphocytes % 18.5 % (21.3-54.2); Mean Corpuscular Hemoglobin 29 PG (27-34); Mean Corpuscular Volume 90.9 FL (87-102); Mean Platelet Volume 10.1 FL (9.6-12.0); Monocytes # 1.2 10*3/uL (0.11-0.8); Monocytes % 9.4 % (1.7-12.7); Neutrophils # 8.6 10*3/uL (1.4-7.4); Platelet Count 230 T/CUMM (130-400); Red Blood Count 3.75 MC/CUMM (3.8-5.5); Red Cell Distribution Width 18.3 % (9.3-17.3); White Blood Count 12.3 T/CUMM (4-12)
[2017-07-25 05:57] LABS: Calcium 8.9 MG/DL (8.5-10.1); Potassium 3.7 MMOL/L (3.5-5.1)
[2017-07-25] MEDS: LEVOTHYROXINE 150 MCG TABLET PO SCH (06:15)
[2017-07-25] MEDS: BUDESONIDE 0.5 MG/2 ML NEB RESP TX SCH ×2 (07:00→19:07)
[2017-07-25] MEDS: DOXYCYCLINE HYCLATE 100 MG CAPSULE PO SCH ×2 (09:22→21:21)
[2017-07-25] MEDS: DILTIAZEM CD 180 MG CAPSULE PO SCH (09:22)
[2017-07-25] MEDS: POTASSIUM CHLORIDE 20 MEQ TABLET PO SCH (09:27)
[2017-07-25] MEDS: predniSONE 10 MG TABLET PO SCH (09:28)
[2017-07-25] MEDS: FLUoxetine 20 MG CAPSULE PO SCH (09:29)
[2017-07-25] MEDS: THEOPHYLLINE ER (24 HR) 400 MG CAPSULE PO SCH (09:30)
[2017-07-25] MEDS: metFORMIN 500 MG TABLET PO SCH (09:30)
[2017-07-25] MEDS: ALBUTEROL 2 MG TABLET PO SCH ×2 (09:31→21:22)
[2017-07-25] MEDS: MAGNESIUM OXIDE 400 MG TABLET PO SCH (09:31)
[2017-07-25] MEDS: MELOXICAM 7.5 MG TABLET PO SCH (09:31)
[2017-07-25] MEDS: traMADol 50 MG TABLET PO PRN ×2 (09:31→23:40)
[2017-07-25] MEDS: glipiZIDE 10 MG TABLET PO SCH (09:32)
[2017-07-25] MEDS: INSULIN REGULAR 100 UNIT/ML SUBCUT SCH ×4 (09:33→21:24)
[2017-07-25] MEDS: ENOXAPARIN 40 MG/0.4 ML SYRINGE SUBCUT SCH (21:21)
[2017-07-25] MEDS: DOCUSATE SODIUM 100 MG CAPSULE PO SCH (21:21)
[2017-07-25] MEDS: BISACODYL 5 MG TABLET PO SCH (21:21)
[2017-07-25] MEDS: MONTELUKAST 10 MG TABLET PO SCH (21:22)
[2017-07-25] MEDS: traZODone 50 MG TABLET PO PRN (21:22)
[2017-07-25] MEDS: ATORVASTATIN 40 MG TABLET PO SCH (21:23)
[2017-07-26] MEDS: ALBUTEROL/IPRATROPIUM 3 ML NEB RESP TX SCH ×4 (00:01→19:08)
[2017-07-26] MEDS: MEROPENEM 1,000 MG in SYRINGE 1 EACH IV SCH ×2 (03:42→21:59)
[2017-07-26] MEDS: LEVOTHYROXINE 150 MCG TABLET PO SCH (05:52)
[2017-07-26] MEDS: BUDESONIDE 0.5 MG/2 ML NEB RESP TX SCH ×2 (07:22→19:08)
[2017-07-26] MEDS: INSULIN REGULAR 100 UNIT/ML SUBCUT SCH ×4 (07:58→22:52)
[2017-07-26] MEDS: ALBUTEROL 2 MG TABLET PO SCH ×2 (08:35→21:37)
[2017-07-26] MEDS: THEOPHYLLINE ER (24 HR) 400 MG CAPSULE PO SCH (08:35)
[2017-07-26] MEDS: DILTIAZEM CD 180 MG CAPSULE PO SCH (08:36)
[2017-07-26] MEDS: MELOXICAM 7.5 MG TABLET PO SCH (08:39)
[2017-07-26] MEDS: MAGNESIUM OXIDE 400 MG TABLET PO SCH (08:39)
[2017-07-26] MEDS: FLUoxetine 20 MG CAPSULE PO SCH (08:40)
[2017-07-26] MEDS: DOXYCYCLINE HYCLATE 100 MG CAPSULE PO SCH (08:40)
[2017-07-26] MEDS: metFORMIN 500 MG TABLET PO SCH (08:40)
[2017-07-26] MEDS: glipiZIDE 10 MG TABLET PO SCH (08:41)
[2017-07-26] MEDS: POTASSIUM CHLORIDE 20 MEQ TABLET PO SCH (08:41)
[2017-07-26] MEDS: predniSONE 10 MG TABLET PO SCH (08:42)
[2017-07-26] MEDS: LEVOFLOXACIN INJ 750 MG in PREMIX 1 EACH IV SCH (09:58)
[2017-07-26] MEDS: PROMETHAZINE 25 MG/1 ML VIAL IM PRN ×2 (11:40→18:47)
[2017-07-26] MEDS: CLINDAMYCIN INJ 600 MG in PREMIX 1 EACH IV SCH ×2 (13:30→21:31)
[2017-07-26] MEDS ORDERED: AMOXICILLIN/CLAV 875 MG TABLET PO SCH (21:00)
[2017-07-26] MEDS: ENOXAPARIN 40 MG/0.4 ML SYRINGE SUBCUT SCH (21:34)
[2017-07-26] MEDS: BISACODYL 5 MG TABLET PO SCH (21:35)
[2017-07-26] MEDS: DOCUSATE SODIUM 100 MG CAPSULE PO SCH (21:35)
[2017-07-26] MEDS: traZODone 50 MG TABLET PO PRN (21:36)
[2017-07-26] MEDS: ATORVASTATIN 40 MG TABLET PO SCH (21:37)
[2017-07-26] MEDS: MONTELUKAST 10 MG TABLET PO SCH (21:37)
[2017-07-26] MEDS: traMADol 50 MG TABLET PO PRN (21:37)
[2017-07-27] MEDS: ALBUTEROL/IPRATROPIUM 3 ML NEB RESP TX SCH ×2 (00:43→07:23)
[2017-07-27 05:37] LABS: Basophils % 0.3 % (0.0-0.8); Eosinophils # 0.1 10*3/uL (0.0-0.87); Eosinophils % 1.1 % (0.00-10.9); Hematocrit 36.4 VOL% (35.7-47.0); Hemoglobin 11.6 GM/DL (12.0-16.0); Immature Granulocytes % 1.8 %; Immature Granulocytes Absolute 0.21 #; Lymphocytes % 17.8 % (21.3-54.2); Mean Corpuscular HGB Conc 31.9 GM/DL (32-36); Mean Corpuscular Hemoglobin 29 PG (27-34); Mean Corpuscular Volume 91.9 FL (87-102); Mean Platelet Volume 10.1 FL (9.6-12.0); Platelet Count 216 T/CUMM (130-400); Red Blood Count 3.96 MC/CUMM (3.8-5.5); Red Cell Distribution Width 18.2 % (9.3-17.3); White Blood Count 11.5 T/CUMM (4-12)
[2017-07-27] MEDS: LEVOTHYROXINE 150 MCG TABLET PO SCH (05:40)
[2017-07-27] MEDS: CLINDAMYCIN INJ 600 MG in PREMIX 1 EACH IV SCH ×2 (05:40→14:20)
[2017-07-27 06:18] LABS: Calcium 9.4 MG/DL (8.5-10.1); Osmolality,Calculated 283.3 MOS/KG (273-304); Potassium 3.9 MMOL/L (3.5-5.1)
[2017-07-27] MEDS: BUDESONIDE 0.5 MG/2 ML NEB RESP TX SCH (07:23)
[2017-07-27] MEDS: INSULIN REGULAR 100 UNIT/ML SUBCUT SCH ×2 (08:54→11:57)
[2017-07-27] MEDS: DILTIAZEM CD 180 MG CAPSULE PO SCH (09:39)
[2017-07-27] MEDS: FLUoxetine 20 MG CAPSULE PO SCH (09:39)
[2017-07-27] MEDS: MELOXICAM 7.5 MG TABLET PO SCH (09:40)
[2017-07-27] MEDS: ALBUTEROL 2 MG TABLET PO SCH (09:40)
[2017-07-27] MEDS: THEOPHYLLINE ER (24 HR) 400 MG CAPSULE PO SCH (09:40)
[2017-07-27] MEDS: MAGNESIUM OXIDE 400 MG TABLET PO SCH (09:40)
[2017-07-27] MEDS: glipiZIDE 10 MG TABLET PO SCH (09:40)
[2017-07-27] MEDS: predniSONE 10 MG TABLET PO SCH (09:40)
[2017-07-27] MEDS: metFORMIN 500 MG TABLET PO SCH (09:41)
[2017-07-27] MEDS: POTASSIUM CHLORIDE 20 MEQ TABLET PO SCH (09:41)
[2017-07-27] MEDS: LEVOFLOXACIN INJ 750 MG in PREMIX 1 EACH IV SCH (09:41)
[2017-07-27 11:58] VITALS: BP 130/87
[2017-08-02] MEDS ORDERED: predniSONE 10 MG TABLET PO SCH (09:00)
== END 2017-07-27 14:20 | disposition home health service (06) | DRG 191 ==
LOC: EDBD → EDUNIT# → N.ED 16:13 → N.EDINP 18:11 → N.2E 19:42

== ENCOUNTER 2017-08-10 13:44 | Inpatient (IN) ==
[2017-08-10] MEDS ORDERED: PIPERACILLIN/TAZOBACTAM 3,375 MG in SODIUM CHLORIDE 0.9% 100 ML IV STA ×2 (15:17→15:25)
[2017-08-10] MEDS ORDERED: methylPREDNISolone SOD SUC 125 MG/2 ML VIAL IV STA (15:17)
[2017-08-10] MEDS ORDERED: ALBUTEROL/IPRATROPIUM 3 ML NEB RESP TX STA (15:17)
[2017-08-10 17:01] LABS: Basophils % 0.3 % (0.0-0.8); Eosinophils # 0.2 10*3/uL (0.0-0.87); Eosinophils % 2.7 % (0.00-10.9); Hematocrit 38.9 VOL% (35.7-47.0); Hemoglobin 12.5 GM/DL (12.0-16.0); Immature Granulocytes % 0.6 %; Immature Granulocytes Absolute 0.05 #; Lymphocytes # 2.8 10*3/uL (1.4-4.0); Mean Corpuscular HGB Conc 32.1 GM/DL (32-36); Mean Corpuscular Hemoglobin 29 PG (27-34); Mean Corpuscular Volume 91.5 FL (87-102); Mean Platelet Volume 9.8 FL (9.6-12.0); Monocytes # 0.8 10*3/uL (0.11-0.8); Monocytes % 9.2 % (1.7-12.7); Neutrophils # 4.8 10*3/uL (1.4-7.4); Neutrophils % 55.2 % (38.7-73.9); Platelet Count 224 T/CUMM (130-400); Red Blood Count 4.25 MC/CUMM (3.8-5.5); Red Cell Distribution Width 17.5 % (9.3-17.3); White Blood Count 8.6 T/CUMM (4-12)
[2017-08-10 17:19] LABS: Bilirubin,Total 0.4 MG/DL (0.2-1.0); Calcium 8.6 MG/DL (8.5-10.1); Osmolality,Calculated 282.5 MOS/KG (273-304); Potassium 3.8 MMOL/L (3.5-5.1); Total Protein 5.9 G/DL (6.4-8.3)
[2017-08-10] MEDS ORDERED: DEXTROSE 50% 25 GM/50 ML VIAL IV PRN (18:42)
[2017-08-10] MEDS ORDERED: GLUCAGON 1 MG VIAL IM PRN (18:42)
[2017-08-10] MEDS ORDERED: ALBUTEROL 2.5 MG/3 ML NEB RESP TX PRN (18:42)
[2017-08-10] MEDS ORDERED: guaiFENesin/DM ER 600-30 MG TABLET PO PRN (18:42)
[2017-08-10] MEDS ORDERED: diphenhydrAMINE CAP 25 MG CAPSULE PO PRN (18:42)
[2017-08-10] MEDS ORDERED: traZODone 50 MG TABLET PO PRN (18:44)
[2017-08-10] MEDS: ALBUTEROL/IPRATROPIUM 3 ML NEB RESP TX SCH (20:23)
[2017-08-10] MEDS ORDERED: SODIUM PHOSPHATE ENEMA 133 ML BOTTLE RECTAL ONE (20:26)
[2017-08-10] MEDS ORDERED: ENOXAPARIN 40 MG/0.4 ML SYRINGE SUBCUT SCH (21:00)
[2017-08-10] MEDS: LEVOFLOXACIN INJ 500 MG in PREMIX 1 EACH IV SCH (21:14)
[2017-08-10] MEDS: HEPARIN 5,000 UNIT/1 ML VIAL SUBCUT SCH (21:15)
[2017-08-10] MEDS: DOCUSATE SODIUM 100 MG CAPSULE PO SCH (21:15)
[2017-08-10] MEDS: ATORVASTATIN 40 MG TABLET PO SCH (21:15)
[2017-08-10] MEDS: INSULIN REGULAR 100 UNIT/ML SUBCUT SCH (21:15)
[2017-08-10] MEDS: MONTELUKAST 10 MG TABLET PO SCH (21:15)
[2017-08-10] MEDS: traMADol 50 MG TABLET PO PRN (23:14)
[2017-08-11] MEDS: methylPREDNISolone SOD SUC 40 MG/1 ML VIAL IV SCH ×3 (00:52→16:27)
[2017-08-11] MEDS: traZODone 50 MG TABLET PO PRN ×2 (00:52→22:32)
[2017-08-11] MEDS: ALBUTEROL/IPRATROPIUM 3 ML NEB RESP TX SCH ×4 (01:20→19:20)
[2017-08-11] MEDS: HEPARIN 5,000 UNIT/1 ML VIAL SUBCUT SCH ×3 (05:31→22:32)
[2017-08-11 06:18] LABS: Basophils % 0.1 % (0.0-0.8); Hematocrit 38.3 VOL% (35.7-47.0); Hemoglobin 12.4 GM/DL (12.0-16.0); Immature Granulocytes % 0.9 %; Immature Granulocytes Absolute 0.07 #; Lymphocytes # 0.9 10*3/uL (1.4-4.0); Lymphocytes % 11.3 % (21.3-54.2); Mean Corpuscular HGB Conc 32.4 GM/DL (32-36); Mean Corpuscular Hemoglobin 29 PG (27-34); Mean Corpuscular Volume 90.1 FL (87-102); Mean Platelet Volume 9.5 FL (9.6-12.0); Monocytes # 0.1 10*3/uL (0.11-0.8); Neutrophils # 6.6 10*3/uL (1.4-7.4); Neutrophils % 86.7 % (38.7-73.9); Platelet Count 215 T/CUMM (130-400); Red Blood Count 4.25 MC/CUMM (3.8-5.5); White Blood Count 7.6 T/CUMM (4-12)
[2017-08-11 06:48] LABS: Albumin 3.1 G/DL (3.4-5.0); Bilirubin,Total 0.6 MG/DL (0.2-1.0); Calcium 9.2 MG/DL (8.5-10.1); Osmolality,Calculated 286.4 MOS/KG (273-304); Potassium 3.9 MMOL/L (3.5-5.1); Total Protein 6.3 G/DL (6.4-8.3)
[2017-08-11] MEDS: LEVOTHYROXINE 150 MCG TABLET PO SCH (06:50)
[2017-08-11] MEDS: INSULIN REGULAR 100 UNIT/ML SUBCUT SCH ×4 (09:51→22:32)
[2017-08-11] MEDS: DILTIAZEM CD 180 MG CAPSULE PO SCH (09:51)
[2017-08-11] MEDS: MAGNESIUM OXIDE 400 MG TABLET PO SCH (09:51)
[2017-08-11] MEDS: PANTOPRAZOLE 40 MG TABLET PO SCH (09:51)
[2017-08-11] MEDS: FLUoxetine 20 MG CAPSULE PO SCH (09:51)
[2017-08-11] MEDS: THEOPHYLLINE ER (24 HR) 400 MG CAPSULE PO SCH (09:52)
[2017-08-11] MEDS: metFORMIN 500 MG TABLET PO SCH (09:52)
[2017-08-11] MEDS: POTASSIUM CHLORIDE 20 MEQ TABLET PO SCH (09:52)
[2017-08-11] MEDS: glipiZIDE 10 MG TABLET PO SCH (09:52)
[2017-08-11] MEDS: DOCUSATE SODIUM 100 MG CAPSULE PO SCH ×2 (09:52→22:33)
[2017-08-11] MEDS: MELOXICAM 7.5 MG TABLET PO SCH (09:52)
[2017-08-11] MEDS: ACETAMINOPHEN 325 MG TABLET PO PRN (11:11)
[2017-08-11] MEDS: traMADol 50 MG TABLET PO PRN (14:18)
[2017-08-11] MEDS: ONDANSETRON 4 MG/2 ML VIAL IV PRN ×2 (14:22→20:56)
[2017-08-11] MEDS ORDERED: MAGNESIUM HYDROXIDE SUSP 30 ML UDCUP PO ONE (15:04)
[2017-08-11] MEDS ORDERED: LACTULOSE 20 GM/30 ML UDCUP PO ONE (15:04)
[2017-08-11] MEDS ORDERED: BISACODYL 5 MG TABLET PO ONE (15:04)
[2017-08-11] MEDS ORDERED: MAGNESIUM CITRATE 300 ML BOTTLE PO ONE (15:04)
[2017-08-11] MEDS: MONTELUKAST 10 MG TABLET PO SCH (22:32)
[2017-08-11] MEDS: ATORVASTATIN 40 MG TABLET PO SCH (22:32)
[2017-08-11] MEDS: LEVOFLOXACIN INJ 500 MG in PREMIX 1 EACH IV SCH (22:33)
[2017-08-12] MEDS: ALBUTEROL/IPRATROPIUM 3 ML NEB RESP TX SCH ×4 (01:32→18:49)
[2017-08-12] MEDS: methylPREDNISolone SOD SUC 40 MG/1 ML VIAL IV SCH ×3 (01:33→17:19)
[2017-08-12] MEDS: HEPARIN 5,000 UNIT/1 ML VIAL SUBCUT SCH ×3 (05:32→22:10)
[2017-08-12] MEDS: LEVOTHYROXINE 150 MCG TABLET PO SCH (05:32)
[2017-08-12] MEDS: INSULIN REGULAR 100 UNIT/ML SUBCUT SCH ×4 (08:16→22:09)
[2017-08-12] MEDS: FLUoxetine 20 MG CAPSULE PO SCH (08:17)
[2017-08-12] MEDS: DILTIAZEM CD 180 MG CAPSULE PO SCH (08:17)
[2017-08-12] MEDS: POTASSIUM CHLORIDE 20 MEQ TABLET PO SCH (08:18)
[2017-08-12] MEDS: DOCUSATE SODIUM 100 MG CAPSULE PO SCH ×2 (08:18→22:09)
[2017-08-12] MEDS: MELOXICAM 7.5 MG TABLET PO SCH (08:18)
[2017-08-12] MEDS: glipiZIDE 10 MG TABLET PO SCH (08:18)
[2017-08-12] MEDS: traMADol 50 MG TABLET PO PRN ×2 (08:18→22:09)
[2017-08-12] MEDS: metFORMIN 500 MG TABLET PO SCH (08:19)
[2017-08-12] MEDS: THEOPHYLLINE ER (24 HR) 400 MG CAPSULE PO SCH (08:19)
[2017-08-12] MEDS: MAGNESIUM OXIDE 400 MG TABLET PO SCH (08:19)
[2017-08-12] MEDS: PANTOPRAZOLE 40 MG TABLET PO SCH (08:19)
[2017-08-12] MEDS: ACETAMINOPHEN 325 MG TABLET PO PRN (13:07)
[2017-08-12] MEDS: clonazePAM 0.5 MG TABLET PO PRN (18:49)
[2017-08-12] MEDS: ATORVASTATIN 40 MG TABLET PO SCH (22:08)
[2017-08-12] MEDS: MONTELUKAST 10 MG TABLET PO SCH (22:09)
[2017-08-12] MEDS: LEVOFLOXACIN INJ 500 MG in PREMIX 1 EACH IV SCH (22:10)
[2017-08-13] MEDS: ALBUTEROL/IPRATROPIUM 3 ML NEB RESP TX SCH ×4 (00:13→20:07)
[2017-08-13 00:55] LABS: Apearance,Urine CLOUDY (Clear); Bilirubin,Urine Negative (Negative); Blood, Urine Negative (Negative); Glucose,Urine (UA) Negative (Negative); Granular Casts,Urine 1 /LPF (0-1); Ketones,Urine Negative (Negative); Mucus,Urine Occasional /LPF (Occasional); Nitrite,Urine Negative (Negative); Protein,Urine Negative; RBC,Urine 1 /HPF (0-4); Urine Color Yellow (Yellow); Urine Specific Gravity 1.015 (1.001-1.035); Urine Urobilinogen < 2.0 EU/DL (0.2-1.0)
[2017-08-13] MEDS: methylPREDNISolone SOD SUC 40 MG/1 ML VIAL IV SCH ×3 (02:48→17:00)
[2017-08-13] MEDS: HEPARIN 5,000 UNIT/1 ML VIAL SUBCUT SCH ×3 (05:48→22:08)
[2017-08-13] MEDS: LEVOTHYROXINE 150 MCG TABLET PO SCH (05:48)
[2017-08-13 05:49] LABS: Basophils % 0.1 % (0.0-0.8); Hematocrit 37.1 VOL% (35.7-47.0); Hemoglobin 11.7 GM/DL (12.0-16.0); Immature Granulocytes % 1.6 %; Immature Granulocytes Absolute 0.21 #; Lymphocytes # 0.6 10*3/uL (1.4-4.0); Lymphocytes % 4.4 % (21.3-54.2); Mean Corpuscular HGB Conc 31.5 GM/DL (32-36); Mean Corpuscular Hemoglobin 29 PG (27-34); Mean Corpuscular Volume 92.3 FL (87-102); Mean Platelet Volume 9.9 FL (9.6-12.0); Monocytes # 0.7 10*3/uL (0.11-0.8); Monocytes % 5.2 % (1.7-12.7); Neutrophils % 88.7 % (38.7-73.9); Platelet Count 202 T/CUMM (130-400); Red Blood Count 4.02 MC/CUMM (3.8-5.5); Red Cell Distribution Width 17.3 % (9.3-17.3); White Blood Count 13.5 T/CUMM (4-12)
[2017-08-13 06:06] LABS: Alanine Aminotransferase 19 U/L (13-56); Albumin 2.9 G/DL (3.4-5.0); Alkaline Phosphatase 87 U/L (45-117); Aspartate Amino Transferase 8 U/L (0-37); Bilirubin,Total < 0.39 MG/DL (0.2-1.0); Blood Urea Nitrogen 26 MG/DL (7-18); Calcium 8.9 MG/DL (8.5-10.1); Glucose 205 MG/DL (74-106); Osmolality,Calculated 285.7 MOS/KG (273-304); Potassium 4.4 MMOL/L (3.5-5.1); Sodium 138 MMOL/L (136-145); Total Protein 5.9 G/DL (6.4-8.3)
[2017-08-13 06:11] LABS: Hypochromasia 1+; Lymphocytes 3 % (20-55); Microcytosis 1+; Segmented Neutrophils 90 % (50-85); Total Cells Counted 100
[2017-08-13 06:12] LABS: Platelet Estimate Normal
[2017-08-13] MEDS: MAGNESIUM OXIDE 400 MG TABLET PO SCH (09:21)
[2017-08-13] MEDS: FLUoxetine 20 MG CAPSULE PO SCH (09:21)
[2017-08-13] MEDS: DOCUSATE SODIUM 100 MG CAPSULE PO SCH ×2 (09:21→22:07)
[2017-08-13] MEDS: POTASSIUM CHLORIDE 20 MEQ TABLET PO SCH (09:21)
[2017-08-13] MEDS: THEOPHYLLINE ER (24 HR) 400 MG CAPSULE PO SCH (09:22)
[2017-08-13] MEDS: metFORMIN 500 MG TABLET PO SCH (09:22)
[2017-08-13] MEDS: DILTIAZEM CD 180 MG CAPSULE PO SCH (09:22)
[2017-08-13] MEDS: MELOXICAM 7.5 MG TABLET PO SCH (09:22)
[2017-08-13] MEDS: glipiZIDE 10 MG TABLET PO SCH (09:23)
[2017-08-13] MEDS: PANTOPRAZOLE 40 MG TABLET PO SCH (09:23)
[2017-08-13] MEDS: INSULIN REGULAR 100 UNIT/ML SUBCUT SCH ×4 (11:12→22:08)
[2017-08-13] MEDS: traMADol 50 MG TABLET PO PRN (12:44)
[2017-08-13] MEDS: ALBUTEROL 2 MG TABLET PO SCH ×2 (12:45→22:07)
[2017-08-13] MEDS: ACETAMINOPHEN 325 MG TABLET PO PRN (18:41)
[2017-08-13] MEDS: traZODone 50 MG TABLET PO PRN (22:07)
[2017-08-13] MEDS: MONTELUKAST 10 MG TABLET PO SCH (22:07)
[2017-08-13] MEDS: ATORVASTATIN 40 MG TABLET PO SCH (22:07)
[2017-08-13] MEDS: clonazePAM 0.5 MG TABLET PO PRN (22:07)
[2017-08-13] MEDS: LEVOFLOXACIN INJ 500 MG in PREMIX 1 EACH IV SCH (22:08)
[2017-08-14] MEDS: methylPREDNISolone SOD SUC 40 MG/1 ML VIAL IV SCH ×3 (00:39→16:23)
[2017-08-14] MEDS: ALBUTEROL/IPRATROPIUM 3 ML NEB RESP TX SCH ×4 (01:30→19:46)
[2017-08-14 05:18] LABS: Basophils % 0.2 % (0.0-0.8); Hematocrit 35.3 VOL% (35.7-47.0); Hemoglobin 11.6 GM/DL (12.0-16.0); Immature Granulocytes Absolute 0.24 #; Lymphocytes # 0.5 10*3/uL (1.4-4.0); Lymphocytes % 4.1 % (21.3-54.2); Mean Corpuscular HGB Conc 32.9 GM/DL (32-36); Mean Corpuscular Hemoglobin 29 PG (27-34); Mean Corpuscular Volume 89.4 FL (87-102); Mean Platelet Volume 9.9 FL (9.6-12.0); Monocytes # 0.6 10*3/uL (0.11-0.8); Monocytes % 5.3 % (1.7-12.7); Neutrophils # 10.8 10*3/uL (1.4-7.4); Neutrophils % 88.4 % (38.7-73.9); Platelet Count 184 T/CUMM (130-400); Red Blood Count 3.95 MC/CUMM (3.8-5.5); Red Cell Distribution Width 17.2 % (9.3-17.3); White Blood Count 12.2 T/CUMM (4-12)
[2017-08-14 05:44] LABS: Calcium 9.3 MG/DL (8.5-10.1); Hypochromasia 1+; Lymphocytes 8 % (20-55); Osmolality,Calculated 287.4 MOS/KG (273-304); Ovalocytes Slight; Platelet Estimate Normal; Potassium 4.3 MMOL/L (3.5-5.1); Segmented Neutrophils 87 % (50-85); Total Cells Counted 100
[2017-08-14 05:45] LABS: Microcytosis 1+
[2017-08-14] MEDS: LEVOTHYROXINE 150 MCG TABLET PO SCH (06:36)
[2017-08-14] MEDS: HEPARIN 5,000 UNIT/1 ML VIAL SUBCUT SCH ×3 (06:37→22:01)
[2017-08-14] MEDS: INSULIN REGULAR 100 UNIT/ML SUBCUT SCH ×4 (08:57→22:01)
[2017-08-14] MEDS: MAGNESIUM OXIDE 400 MG TABLET PO SCH (08:58)
[2017-08-14] MEDS: PANTOPRAZOLE 40 MG TABLET PO SCH (08:58)
[2017-08-14] MEDS: metFORMIN 500 MG TABLET PO SCH (08:58)
[2017-08-14] MEDS: THEOPHYLLINE ER (24 HR) 400 MG CAPSULE PO SCH (08:58)
[2017-08-14] MEDS: MELOXICAM 7.5 MG TABLET PO SCH (08:58)
[2017-08-14] MEDS: FLUoxetine 20 MG CAPSULE PO SCH (08:59)
[2017-08-14] MEDS: ALBUTEROL 2 MG TABLET PO SCH ×2 (08:59→22:00)
[2017-08-14] MEDS: glipiZIDE 10 MG TABLET PO SCH (08:59)
[2017-08-14] MEDS: POTASSIUM CHLORIDE 20 MEQ TABLET PO SCH (08:59)
[2017-08-14] MEDS: DOCUSATE SODIUM 100 MG CAPSULE PO SCH ×2 (08:59→22:01)
[2017-08-14] MEDS: DILTIAZEM CD 180 MG CAPSULE PO SCH (08:59)
[2017-08-14] MEDS: clonazePAM 0.5 MG TABLET PO PRN (14:58)
[2017-08-14] MEDS: ONDANSETRON 4 MG/2 ML VIAL IV PRN (18:12)
[2017-08-14] MEDS: LEVOFLOXACIN INJ 500 MG in PREMIX 1 EACH IV SCH (21:59)
[2017-08-14] MEDS: ATORVASTATIN 40 MG TABLET PO SCH (22:00)
[2017-08-14] MEDS: MONTELUKAST 10 MG TABLET PO SCH (22:00)
[2017-08-14] MEDS: traMADol 50 MG TABLET PO PRN (22:00)
[2017-08-14] MEDS: traZODone 50 MG TABLET PO PRN (22:00)
[2017-08-15] MEDS: methylPREDNISolone SOD SUC 40 MG/1 ML VIAL IV SCH (01:25)
[2017-08-15] MEDS: ALBUTEROL/IPRATROPIUM 3 ML NEB RESP TX SCH ×4 (02:17→19:47)
[2017-08-15 04:20] LABS: Basophils % 0.2 % (0.0-0.8); Hematocrit 34.9 VOL% (35.7-47.0); Hemoglobin 11.5 GM/DL (12.0-16.0); Immature Granulocytes % 3.7 %; Immature Granulocytes Absolute 0.52 #; Lymphocytes # 0.9 10*3/uL (1.4-4.0); Lymphocytes % 6.2 % (21.3-54.2); Mean Corpuscular Hemoglobin 30 PG (27-34); Mean Corpuscular Volume 90.6 FL (87-102); Mean Platelet Volume 10.3 FL (9.6-12.0); Monocytes # 0.8 10*3/uL (0.11-0.8); Monocytes % 5.7 % (1.7-12.7); Neutrophils # 11.9 10*3/uL (1.4-7.4); Neutrophils % 84.2 % (38.7-73.9); Platelet Count 180 T/CUMM (130-400); Red Blood Count 3.85 MC/CUMM (3.8-5.5); Red Cell Distribution Width 16.9 % (9.3-17.3); White Blood Count 14.1 T/CUMM (4-12)
[2017-08-15 04:45] LABS: Calcium 8.8 MG/DL (8.5-10.1); Osmolality,Calculated 281.8 MOS/KG (273-304); Potassium 4.1 MMOL/L (3.5-5.1)
[2017-08-15] MEDS: LEVOTHYROXINE 150 MCG TABLET PO SCH (05:52)
[2017-08-15] MEDS: HEPARIN 5,000 UNIT/1 ML VIAL SUBCUT SCH ×3 (05:52→21:24)
[2017-08-15 06:25] LABS: Band Neutrophils 3 % (0-10); Lymphocytes 2 % (20-55); Poikilocytosis 1+; Segmented Neutrophils 91 % (50-85); Total Cells Counted 100
[2017-08-15] MEDS ORDERED: methylPREDNISolone SOD SUC 40 MG/1 ML VIAL IV SCH (07:30)
[2017-08-15] MEDS: INSULIN REGULAR 100 UNIT/ML SUBCUT SCH ×4 (08:45→21:26)
[2017-08-15] MEDS: POLYETHYLENE GLYCOL POWDER 17 GM PACK PO SCH (08:46)
[2017-08-15] MEDS: MELOXICAM 7.5 MG TABLET PO SCH (08:46)
[2017-08-15] MEDS: ALBUTEROL 2 MG TABLET PO SCH ×2 (08:46→21:25)
[2017-08-15] MEDS: POTASSIUM CHLORIDE 20 MEQ TABLET PO SCH (08:46)
[2017-08-15] MEDS: glipiZIDE 10 MG TABLET PO SCH (08:46)
[2017-08-15] MEDS: DOCUSATE SODIUM 100 MG CAPSULE PO SCH ×2 (08:46→21:26)
[2017-08-15] MEDS: DILTIAZEM CD 180 MG CAPSULE PO SCH (08:46)
[2017-08-15] MEDS: PANTOPRAZOLE 40 MG TABLET PO SCH (08:46)
[2017-08-15] MEDS: MAGNESIUM OXIDE 400 MG TABLET PO SCH (08:46)
[2017-08-15] MEDS: metFORMIN 500 MG TABLET PO SCH (08:46)
[2017-08-15] MEDS: FLUoxetine 20 MG CAPSULE PO SCH (08:46)
[2017-08-15] MEDS: THEOPHYLLINE ER (24 HR) 400 MG CAPSULE PO SCH (08:47)
[2017-08-15] MEDS: clonazePAM 0.5 MG TABLET PO PRN ×2 (10:55→21:26)
[2017-08-15] MEDS: traMADol 50 MG TABLET PO PRN ×2 (15:27→21:25)
[2017-08-15] MEDS: MONTELUKAST 10 MG TABLET PO SCH (21:26)
[2017-08-15] MEDS: ATORVASTATIN 40 MG TABLET PO SCH (21:26)
[2017-08-15] MEDS: LEVOFLOXACIN INJ 500 MG in PREMIX 1 EACH IV SCH (21:26)
[2017-08-15] MEDS: traZODone 50 MG TABLET PO PRN (22:38)
[2017-08-16] MEDS: ALBUTEROL/IPRATROPIUM 3 ML NEB RESP TX SCH ×3 (01:30→12:19)
[2017-08-16] MEDS: LEVOTHYROXINE 150 MCG TABLET PO SCH (05:35)
[2017-08-16] MEDS: HEPARIN 5,000 UNIT/1 ML VIAL SUBCUT SCH (05:35)
[2017-08-16 06:27] LABS: Basophils # 0.1 10*3/uL (0.0-0.2); Basophils % 0.6 % (0.0-0.8); Eosinophils % 0.2 % (0.00-10.9); Hematocrit 37.4 VOL% (35.7-47.0); Immature Granulocytes % 6.6 %; Immature Granulocytes Absolute 1.06 #; Lymphocytes # 2.6 10*3/uL (1.4-4.0); Lymphocytes % 16.1 % (21.3-54.2); Mean Corpuscular HGB Conc 32.1 GM/DL (32-36); Mean Corpuscular Hemoglobin 29 PG (27-34); Mean Corpuscular Volume 89.9 FL (87-102); Mean Platelet Volume 9.8 FL (9.6-12.0); Monocytes # 1.6 10*3/uL (0.11-0.8); Monocytes % 10.1 % (1.7-12.7); NRBC # 0.02 10*3/uL; Neutrophils # 10.7 10*3/uL (1.4-7.4); Neutrophils % 66.4 % (38.7-73.9); Platelet Count 194 T/CUMM (130-400); Red Blood Count 4.16 MC/CUMM (3.8-5.5); Red Cell Distribution Width 17.1 % (9.3-17.3); White Blood Count 16.1 T/CUMM (4-12)
[2017-08-16 06:43] LABS: Calcium 8.9 MG/DL (8.5-10.1); Osmolality,Calculated 281.5 MOS/KG (273-304); Potassium 4.2 MMOL/L (3.5-5.1)
[2017-08-16 06:52] LABS: Band Neutrophils 1 % (0-10); Hypochromasia 1+; Lymphocytes 13 % (20-55); Ovalocytes Slight; Platelet Estimate Adequate; Segmented Neutrophils 77 % (50-85); Total Cells Counted 100
[2017-08-16] MEDS: INSULIN REGULAR 100 UNIT/ML SUBCUT SCH ×2 (08:11→12:48)
[2017-08-16] MEDS: MELOXICAM 7.5 MG TABLET PO SCH (08:52)
[2017-08-16] MEDS: MAGNESIUM OXIDE 400 MG TABLET PO SCH (08:52)
[2017-08-16] MEDS: FLUoxetine 20 MG CAPSULE PO SCH (08:53)
[2017-08-16] MEDS: DILTIAZEM CD 180 MG CAPSULE PO SCH (08:53)
[2017-08-16] MEDS: metFORMIN 500 MG TABLET PO SCH (08:53)
[2017-08-16] MEDS: ALBUTEROL 2 MG TABLET PO SCH (08:53)
[2017-08-16] MEDS: POLYETHYLENE GLYCOL POWDER 17 GM PACK PO SCH (08:55)
[2017-08-16] MEDS: THEOPHYLLINE ER (24 HR) 400 MG CAPSULE PO SCH (08:56)
[2017-08-16] MEDS: POTASSIUM CHLORIDE 20 MEQ TABLET PO SCH (08:58)
[2017-08-16] MEDS: glipiZIDE 10 MG TABLET PO SCH (08:58)
[2017-08-16] MEDS: DOCUSATE SODIUM 100 MG CAPSULE PO SCH (08:58)
[2017-08-16] MEDS: PANTOPRAZOLE 40 MG TABLET PO SCH (08:59)
[2017-08-16] MEDS ORDERED: methylPREDNISolone SOD SUC 40 MG/1 ML VIAL IV SCH (09:00)
[2017-08-16] MEDS ORDERED: BISACODYL 10 MG SUPP RECTAL ONE (10:30)
[2017-08-16 11:51] VITALS: BP 112/91
== END 2017-08-16 13:20 | DRG 191 ==
LOC: EDBD → EDUNIT# → N.ED 13:44 → SUATTDRO 18:42 → N.EDINP 18:42 → N.2E 19:41
PROVIDERS: ADMIT Internal Medicine

== ENCOUNTER 2017-09-12 10:20 | Inpatient (IN) ==
[2017-09-12] MEDS ORDERED: ALBUTEROL/IPRATROPIUM 3 ML NEB RESP TX STA (10:44)
[2017-09-12] MEDS ORDERED: LEVOFLOXACIN INJ 500 MG in PREMIX 1 EACH IV STA (10:44)
[2017-09-12] MEDS ORDERED: methylPREDNISolone SOD SUC 125 MG/2 ML VIAL IV STA (10:44)
[2017-09-12 11:13] LABS: Basophils # 0.1 10*3/uL (0.0-0.2); Basophils % 0.6 % (0.0-0.8); Eosinophils # 0.1 10*3/uL (0.0-0.87); Hematocrit 43.8 VOL% (35.7-47.0); Hemoglobin 14.2 GM/DL (12.0-16.0); Immature Granulocytes % 0.9 %; Immature Granulocytes Absolute 0.11 #; Lymphocytes # 3.2 10*3/uL (1.4-4.0); Lymphocytes % 26.2 % (21.3-54.2); Mean Corpuscular HGB Conc 32.4 GM/DL (32-36); Mean Corpuscular Hemoglobin 30 PG (27-34); Mean Corpuscular Volume 91.4 FL (87-102); Mean Platelet Volume 9.4 FL (9.6-12.0); Monocytes # 1.2 10*3/uL (0.11-0.8); Monocytes % 10.1 % (1.7-12.7); Neutrophils # 7.4 10*3/uL (1.4-7.4); Neutrophils % 61.2 % (38.7-73.9); Platelet Count 234 T/CUMM (130-400); Red Blood Count 4.79 MC/CUMM (3.8-5.5); Red Cell Distribution Width 15.9 % (9.3-17.3); White Blood Count 12.1 T/CUMM (4-12)
[2017-09-12 11:53] LABS: Alanine Aminotransferase 23 U/L (13-56); Albumin 3.2 G/DL (3.4-5.0); Alkaline Phosphatase 78 U/L (45-117); Aspartate Amino Transferase 13 U/L (0-37); Blood Urea Nitrogen 29 MG/DL (7-18); Calcium 9.5 MG/DL (8.5-10.1); Glucose 91 MG/DL (74-106); Osmolality,Calculated 286.3 MOS/KG (273-304); Potassium 3.9 MMOL/L (3.5-5.1); Sodium 141 MMOL/L (136-145); Total Protein 6.6 G/DL (6.4-8.3); Troponin I Only < 0.015 NG/ML (0.00-0.045)
[2017-09-12] MEDS ORDERED: GLUCAGON 1 MG VIAL IM PRN (13:15)
[2017-09-12] MEDS ORDERED: ONDANSETRON 4 MG/2 ML VIAL IV PRN (13:15)
[2017-09-12] MEDS ORDERED: ACETAMINOPHEN 325 MG TABLET PO PRN (13:15)
[2017-09-12] MEDS ORDERED: DEXTROSE 50% 25 GM/50 ML VIAL IV PRN (13:15)
[2017-09-12] MEDS ORDERED: ALBUTEROL 2.5 MG/3 ML NEB RESP TX PRN (13:24)
[2017-09-12] MEDS ORDERED: HYDROmorphone 2 MG/1 ML VIAL IV STA (14:53)
[2017-09-12] MEDS ORDERED: ONDANSETRON 4 MG/2 ML VIAL IV STA (14:54)
[2017-09-12] MEDS: INSULIN LISPRO 100 UNIT/ML SUBCUT SCH ×2 (18:23→20:58)
[2017-09-12] MEDS: ALBUTEROL/IPRATROPIUM 3 ML NEB RESP TX SCH (19:26)
[2017-09-12] MEDS: ENOXAPARIN 40 MG/0.4 ML SYRINGE SUBCUT SCH (20:58)
[2017-09-13] MEDS: ALBUTEROL/IPRATROPIUM 3 ML NEB RESP TX SCH ×4 (00:34→18:59)
[2017-09-13 06:01] LABS: Basophils % 0.1 % (0.0-0.8); Hematocrit 39.3 VOL% (35.7-47.0); Hemoglobin 12.9 GM/DL (12.0-16.0); Immature Granulocytes % 1.6 %; Immature Granulocytes Absolute 0.18 #; Lymphocytes # 1.3 10*3/uL (1.4-4.0); Lymphocytes % 11.1 % (21.3-54.2); Mean Corpuscular HGB Conc 32.8 GM/DL (32-36); Mean Corpuscular Hemoglobin 29 PG (27-34); Mean Corpuscular Volume 89.5 FL (87-102); Mean Platelet Volume 9.8 FL (9.6-12.0); Monocytes # 0.7 10*3/uL (0.11-0.8); Monocytes % 6.5 % (1.7-12.7); Neutrophils # 9.1 10*3/uL (1.4-7.4); Neutrophils % 80.7 % (38.7-73.9); Platelet Count 219 T/CUMM (130-400); Red Blood Count 4.39 MC/CUMM (3.8-5.5); Red Cell Distribution Width 15.2 % (9.3-17.3); White Blood Count 11.3 T/CUMM (4-12)
[2017-09-13 06:33] LABS: Albumin 3.1 G/DL (3.4-5.0); Bilirubin,Total 0.7 MG/DL (0.2-1.0); Calcium 9.5 MG/DL (8.5-10.1); Osmolality,Calculated 285.5 MOS/KG (273-304); Potassium 4.3 MMOL/L (3.5-5.1); Thyroid Stimulating Hormone 0.422 uIU/ml (0.358-3.74); Total Protein 5.9 G/DL (6.4-8.3)
[2017-09-13] MEDS: INSULIN LISPRO 100 UNIT/ML SUBCUT SCH ×4 (08:06→21:10)
[2017-09-13] MEDS: THEOPHYLLINE ER (24 HR) 400 MG CAPSULE PO SCH (09:06)
[2017-09-13] MEDS: ALBUTEROL 2 MG TABLET PO SCH ×2 (09:08→21:10)
[2017-09-13] MEDS: MELOXICAM 7.5 MG TABLET PO SCH (09:09)
[2017-09-13] MEDS: FLUoxetine 20 MG CAPSULE PO SCH (09:09)
[2017-09-13] MEDS: METHOCARBAMOL 500 MG TABLET PO SCH ×2 (09:09→21:10)
[2017-09-13] MEDS: PANTOPRAZOLE 40 MG TABLET PO SCH (09:09)
[2017-09-13] MEDS: DILTIAZEM CD 180 MG CAPSULE PO SCH (09:09)
[2017-09-13] MEDS: methylPREDNISolone SOD SUC 40 MG/1 ML VIAL IV SCH ×2 (09:10→21:10)
[2017-09-13] MEDS: POLYETHYLENE GLYCOL POWDER 17 GM PACK PO SCH (09:10)
[2017-09-13] MEDS: LEVOFLOXACIN INJ 750 MG in PREMIX 1 EACH IV SCH (12:21)
[2017-09-13] MEDS ORDERED: ALBUTEROL/IPRATROPIUM 3 ML NEB RESP TX PRN (12:34)
[2017-09-13] MEDS: traMADol 50 MG TABLET PO PRN (15:43)
[2017-09-13] MEDS: clonazePAM 0.5 MG TABLET PO PRN (15:43)
[2017-09-13] MEDS: DORNASE ALFA 2.5 MG/2.5 ML VIAL RESP TX SCH ×2 (17:13→18:59)
[2017-09-13] MEDS: ATORVASTATIN 40 MG TABLET PO SCH (21:09)
[2017-09-13] MEDS: traZODone 50 MG TABLET PO PRN (21:10)
[2017-09-13] MEDS: ENOXAPARIN 40 MG/0.4 ML SYRINGE SUBCUT SCH (21:10)
[2017-09-13] MEDS: MONTELUKAST 10 MG TABLET PO SCH (21:10)
[2017-09-14] MEDS: ALBUTEROL/IPRATROPIUM 3 ML NEB RESP TX SCH ×4 (00:51→19:03)
[2017-09-14 05:53] LABS: Basophils % 0.2 % (0.0-0.8); Hematocrit 37.2 VOL% (35.7-47.0); Hemoglobin 12.1 GM/DL (12.0-16.0); Immature Granulocytes % 1.5 %; Immature Granulocytes Absolute 0.15 #; Lymphocytes # 0.4 10*3/uL (1.4-4.0); Lymphocytes % 4.3 % (21.3-54.2); Mean Corpuscular HGB Conc 32.5 GM/DL (32-36); Mean Corpuscular Hemoglobin 30 PG (27-34); Mean Platelet Volume 10.3 FL (9.6-12.0); Monocytes # 0.2 10*3/uL (0.11-0.8); Monocytes % 1.5 % (1.7-12.7); Neutrophils # 9.5 10*3/uL (1.4-7.4); Neutrophils % 92.5 % (38.7-73.9); Platelet Count 201 T/CUMM (130-400); Red Blood Count 4.09 MC/CUMM (3.8-5.5); Red Cell Distribution Width 15.6 % (9.3-17.3); White Blood Count 10.3 T/CUMM (4-12)
[2017-09-14 06:14] LABS: Giant Platelets Few; Hypochromasia 1+; Lymphocytes 2 % (20-55); Ovalocytes Slight; Platelet Estimate Adequate; Segmented Neutrophils 96 % (50-85); Total Cells Counted 100
[2017-09-14 06:29] LABS: Calcium 9.3 MG/DL (8.5-10.1); Osmolality,Calculated 293.3 MOS/KG (273-304); Potassium 4.4 MMOL/L (3.5-5.1)
[2017-09-14] MEDS: LEVOTHYROXINE 150 MCG TABLET PO SCH (06:41)
[2017-09-14] MEDS: DORNASE ALFA 2.5 MG/2.5 ML VIAL RESP TX SCH ×2 (07:25→19:03)
[2017-09-14] MEDS: INSULIN LISPRO 100 UNIT/ML SUBCUT SCH ×4 (09:07→21:46)
[2017-09-14] MEDS: POLYETHYLENE GLYCOL POWDER 17 GM PACK PO SCH (09:07)
[2017-09-14] MEDS: methylPREDNISolone SOD SUC 40 MG/1 ML VIAL IV SCH ×2 (09:08→21:35)
[2017-09-14] MEDS: DILTIAZEM CD 180 MG CAPSULE PO SCH (09:08)
[2017-09-14] MEDS: FLUoxetine 20 MG CAPSULE PO SCH (09:08)
[2017-09-14] MEDS: MELOXICAM 7.5 MG TABLET PO SCH (09:09)
[2017-09-14] MEDS: THEOPHYLLINE ER (24 HR) 400 MG CAPSULE PO SCH (09:09)
[2017-09-14] MEDS: METHOCARBAMOL 500 MG TABLET PO SCH ×2 (09:09→21:34)
[2017-09-14] MEDS: ALBUTEROL 2 MG TABLET PO SCH ×2 (09:09→21:34)
[2017-09-14] MEDS: PANTOPRAZOLE 40 MG TABLET PO SCH (09:09)
[2017-09-14] MEDS: clonazePAM 0.5 MG TABLET PO PRN (09:10)
[2017-09-14] MEDS: LEVOFLOXACIN INJ 750 MG in PREMIX 1 EACH IV SCH (10:15)
[2017-09-14] MEDS: LIDOCAINE 5% PATCH TRANSDERM SCH (17:39)
[2017-09-14] MEDS: ATORVASTATIN 40 MG TABLET PO SCH (21:34)
[2017-09-14] MEDS: MONTELUKAST 10 MG TABLET PO SCH (21:38)
[2017-09-14] MEDS: ENOXAPARIN 40 MG/0.4 ML SYRINGE SUBCUT SCH (21:44)
[2017-09-15] MEDS: ALBUTEROL/IPRATROPIUM 3 ML NEB RESP TX SCH ×4 (00:36→19:56)
[2017-09-15 04:22] LABS: Basophils % 0.2 % (0.0-0.8); Hemoglobin 11.6 GM/DL (12.0-16.0); Immature Granulocytes Absolute 0.24 #; Lymphocytes # 0.4 10*3/uL (1.4-4.0); Lymphocytes % 3.4 % (21.3-54.2); Mean Corpuscular HGB Conc 31.4 GM/DL (32-36); Mean Corpuscular Hemoglobin 29 PG (27-34); Mean Corpuscular Volume 93.9 FL (87-102); Mean Platelet Volume 10.3 FL (9.6-12.0); Monocytes # 0.2 10*3/uL (0.11-0.8); Neutrophils # 11.3 10*3/uL (1.4-7.4); Neutrophils % 92.4 % (38.7-73.9); Platelet Count 190 T/CUMM (130-400); Red Blood Count 3.94 MC/CUMM (3.8-5.5); Red Cell Distribution Width 15.9 % (9.3-17.3); White Blood Count 12.2 T/CUMM (4-12)
[2017-09-15 05:00] LABS: Calcium 9.5 MG/DL (8.5-10.1); Osmolality,Calculated 295.1 MOS/KG (273-304); Potassium 4.4 MMOL/L (3.5-5.1)
[2017-09-15 05:08] LABS: Band Neutrophils 1 % (0-10); Lymphocytes 5 % (20-55); Platelet Estimate Normal; Segmented Neutrophils 94 % (50-85); Total Cells Counted 100
[2017-09-15] MEDS: LEVOTHYROXINE 150 MCG TABLET PO SCH (06:41)
[2017-09-15] MEDS: DORNASE ALFA 2.5 MG/2.5 ML VIAL RESP TX SCH ×2 (06:53→19:56)
[2017-09-15] MEDS: POLYETHYLENE GLYCOL POWDER 17 GM PACK PO SCH (08:48)
[2017-09-15] MEDS: methylPREDNISolone SOD SUC 40 MG/1 ML VIAL IV SCH ×2 (08:48→21:52)
[2017-09-15] MEDS: LEVOFLOXACIN INJ 500 MG in PREMIX 1 EACH IV SCH (08:49)
[2017-09-15] MEDS: LIDOCAINE 5% PATCH TRANSDERM SCH (08:49)
[2017-09-15] MEDS: INSULIN LISPRO 100 UNIT/ML SUBCUT SCH ×4 (08:49→21:51)
[2017-09-15] MEDS: clonazePAM 0.5 MG TABLET PO PRN ×2 (08:50→17:50)
[2017-09-15] MEDS: MELOXICAM 7.5 MG TABLET PO SCH (08:50)
[2017-09-15] MEDS: PANTOPRAZOLE 40 MG TABLET PO SCH (08:50)
[2017-09-15] MEDS: DILTIAZEM CD 180 MG CAPSULE PO SCH (08:50)
[2017-09-15] MEDS: THEOPHYLLINE ER (24 HR) 400 MG CAPSULE PO SCH (08:50)
[2017-09-15] MEDS: METHOCARBAMOL 500 MG TABLET PO SCH ×2 (08:50→21:51)
[2017-09-15] MEDS: ALBUTEROL 2 MG TABLET PO SCH ×2 (08:50→21:50)
[2017-09-15] MEDS: FLUoxetine 20 MG CAPSULE PO SCH (09:29)
[2017-09-15] MEDS: traZODone 50 MG TABLET PO PRN (21:50)
[2017-09-15] MEDS: MONTELUKAST 10 MG TABLET PO SCH (21:50)
[2017-09-15] MEDS: ATORVASTATIN 40 MG TABLET PO SCH (21:51)
[2017-09-16] MEDS: ALBUTEROL/IPRATROPIUM 3 ML NEB RESP TX SCH ×4 (01:06→19:22)
[2017-09-16 04:28] LABS: Basophils % 0.2 % (0.0-0.8); Hematocrit 36.1 VOL% (35.7-47.0); Hemoglobin 11.7 GM/DL (12.0-16.0); Immature Granulocytes Absolute 0.41 #; Lymphocytes # 0.5 10*3/uL (1.4-4.0); Lymphocytes % 3.8 % (21.3-54.2); Mean Corpuscular HGB Conc 32.4 GM/DL (32-36); Mean Corpuscular Hemoglobin 31 PG (27-34); Mean Platelet Volume 10.3 FL (9.6-12.0); Monocytes # 0.3 10*3/uL (0.11-0.8); Monocytes % 2.2 % (1.7-12.7); Neutrophils # 12.6 10*3/uL (1.4-7.4); Neutrophils % 90.8 % (38.7-73.9); Platelet Count 191 T/CUMM (130-400); Red Blood Count 3.84 MC/CUMM (3.8-5.5); Red Cell Distribution Width 15.9 % (9.3-17.3); White Blood Count 13.8 T/CUMM (4-12)
[2017-09-16 04:54] LABS: Albumin 2.7 G/DL (3.4-5.0); Bilirubin,Total 0.6 MG/DL (0.2-1.0); Calcium 9.6 MG/DL (8.5-10.1); Osmolality,Calculated 296.3 MOS/KG (273-304); Potassium 4.2 MMOL/L (3.5-5.1); Total Protein 5.6 G/DL (6.4-8.3)
[2017-09-16 05:05] LABS: Lymphocytes 7 % (20-55); Platelet Estimate Normal; Segmented Neutrophils 92 % (50-85); Total Cells Counted 100
[2017-09-16] MEDS: LEVOTHYROXINE 150 MCG TABLET PO SCH (06:20)
[2017-09-16] MEDS: DORNASE ALFA 2.5 MG/2.5 ML VIAL RESP TX SCH ×2 (07:07→19:22)
[2017-09-16] MEDS: INSULIN LISPRO 100 UNIT/ML SUBCUT SCH ×4 (10:05→22:15)
[2017-09-16] MEDS: LIDOCAINE 5% PATCH TRANSDERM SCH (10:09)
[2017-09-16] MEDS: LEVOFLOXACIN INJ 500 MG in PREMIX 1 EACH IV SCH (10:10)
[2017-09-16] MEDS: POLYETHYLENE GLYCOL POWDER 17 GM PACK PO SCH (10:11)
[2017-09-16] MEDS: PANTOPRAZOLE 40 MG TABLET PO SCH (10:12)
[2017-09-16] MEDS: MELOXICAM 7.5 MG TABLET PO SCH (10:13)
[2017-09-16] MEDS: FLUoxetine 20 MG CAPSULE PO SCH (10:13)
[2017-09-16] MEDS: metFORMIN 500 MG TABLET PO SCH (10:13)
[2017-09-16] MEDS: DILTIAZEM CD 180 MG CAPSULE PO SCH (10:14)
[2017-09-16] MEDS: THEOPHYLLINE ER (24 HR) 400 MG CAPSULE PO SCH (10:14)
[2017-09-16] MEDS: ALBUTEROL 2 MG TABLET PO SCH ×2 (10:14→21:37)
[2017-09-16] MEDS: METHOCARBAMOL 500 MG TABLET PO SCH ×2 (10:15→21:38)
[2017-09-16] MEDS: methylPREDNISolone SOD SUC 40 MG/1 ML VIAL IV SCH ×2 (10:15→21:39)
[2017-09-16] MEDS: clonazePAM 0.5 MG TABLET PO PRN (13:00)
[2017-09-16] MEDS: traMADol 50 MG TABLET PO PRN (20:29)
[2017-09-16] MEDS: MONTELUKAST 10 MG TABLET PO SCH (21:37)
[2017-09-16] MEDS: ATORVASTATIN 40 MG TABLET PO SCH (21:38)
[2017-09-16] MEDS: traZODone 50 MG TABLET PO PRN (21:39)
[2017-09-17] MEDS: ALBUTEROL/IPRATROPIUM 3 ML NEB RESP TX SCH ×4 (01:28→19:32)
[2017-09-17 04:57] LABS: Basophils # 0.1 10*3/uL (0.0-0.2); Basophils % 0.3 % (0.0-0.8); Hematocrit 42.1 VOL% (35.7-47.0); Hemoglobin 13.7 GM/DL (12.0-16.0); Immature Granulocytes % 3.2 %; Immature Granulocytes Absolute 0.53 #; Lymphocytes # 0.6 10*3/uL (1.4-4.0); Lymphocytes % 3.5 % (21.3-54.2); Mean Corpuscular HGB Conc 32.5 GM/DL (32-36); Mean Corpuscular Hemoglobin 30 PG (27-34); Mean Corpuscular Volume 92.1 FL (87-102); Mean Platelet Volume 10.3 FL (9.6-12.0); Monocytes # 0.4 10*3/uL (0.11-0.8); Monocytes % 2.2 % (1.7-12.7); NRBC # 0.02 10*3/uL; Neutrophils % 90.8 % (38.7-73.9); Platelet Count 256 T/CUMM (130-400); Red Blood Count 4.57 MC/CUMM (3.8-5.5); Red Cell Distribution Width 15.8 % (9.3-17.3); White Blood Count 16.5 T/CUMM (4-12)
[2017-09-17 05:20] LABS: Albumin 3.2 G/DL (3.4-5.0); Bilirubin,Total 0.8 MG/DL (0.2-1.0); Calcium 9.9 MG/DL (8.5-10.1); Osmolality,Calculated 295.4 MOS/KG (273-304); Potassium 4.2 MMOL/L (3.5-5.1); Total Protein 6.3 G/DL (6.4-8.3)
[2017-09-17 05:23] LABS: Lymphocytes 4 % (20-55); Microcytosis 1+; Segmented Neutrophils 94 % (50-85); Total Cells Counted 100
[2017-09-17 05:24] LABS: Hypochromasia Slight; Platelet Estimate Normal
[2017-09-17] MEDS: LEVOTHYROXINE 150 MCG TABLET PO SCH (07:41)
[2017-09-17] MEDS: DORNASE ALFA 2.5 MG/2.5 ML VIAL RESP TX SCH ×2 (07:53→19:32)
[2017-09-17] MEDS: LIDOCAINE 5% PATCH TRANSDERM SCH (09:00)
[2017-09-17] MEDS: metFORMIN 500 MG TABLET PO SCH (09:00)
[2017-09-17] MEDS: POLYETHYLENE GLYCOL POWDER 17 GM PACK PO SCH (09:00)
[2017-09-17] MEDS: METHOCARBAMOL 500 MG TABLET PO SCH ×2 (09:00→20:56)
[2017-09-17] MEDS: FLUoxetine 20 MG CAPSULE PO SCH (09:00)
[2017-09-17] MEDS: MELOXICAM 7.5 MG TABLET PO SCH (09:00)
[2017-09-17] MEDS: LEVOFLOXACIN INJ 500 MG in PREMIX 1 EACH IV SCH (09:49)
[2017-09-17] MEDS: methylPREDNISolone SOD SUC 40 MG/1 ML VIAL IV SCH ×2 (09:57→20:56)
[2017-09-17] MEDS: DILTIAZEM CD 180 MG CAPSULE PO SCH (09:58)
[2017-09-17] MEDS: THEOPHYLLINE ER (24 HR) 400 MG CAPSULE PO SCH (09:58)
[2017-09-17] MEDS: INSULIN LISPRO 100 UNIT/ML SUBCUT SCH ×4 (09:58→20:57)
[2017-09-17] MEDS: PANTOPRAZOLE 40 MG TABLET PO SCH (09:58)
[2017-09-17] MEDS: ALBUTEROL 2 MG TABLET PO SCH ×2 (10:15→20:55)
[2017-09-17] MEDS ORDERED: TISSUE ADHESIVE 1 EACH APPLICATOR TOP ONE ×2 (15:42→16:58)
[2017-09-17] MEDS ORDERED: DEXAMETHASONE 10 MG/1 ML VIAL ONE (15:43)
[2017-09-17] MEDS ORDERED: DEXAMETHASONE 4 MG/1 ML VIAL ONE (15:43)
[2017-09-17] MEDS ORDERED: LIDOCAINE 1% 20 ML VIAL ONE (15:43)
[2017-09-17] MEDS ORDERED: ceFAZolin 1,000 MG VIAL ONE (16:29)
[2017-09-17] MEDS ORDERED: fentaNYL 100 MCG/2 ML VIAL ONE (17:18)
[2017-09-17] MEDS ORDERED: MIDAZOLAM 2 MG/2 ML VIAL ONE (17:18)
[2017-09-17] MEDS ORDERED: PROPOFOL 200 MG/20 ML VIAL IV ONE (17:18)
[2017-09-17] MEDS ORDERED: LABETALOL 20 MG/4 ML SYRINGE IV ONE (17:18)
[2017-09-17] MEDS ORDERED: ETOMIDATE 40 MG/20 ML VIAL IV ONE (17:19)
[2017-09-17] MEDS ORDERED: HYDROmorphone 2 MG/1 ML VIAL ONE (17:20)
[2017-09-17] MEDS ORDERED: ONDANSETRON 4 MG/2 ML VIAL ONE (17:20)
[2017-09-17] MEDS: HYDROmorphone 2 MG/1 ML VIAL IV PRN ×3 (17:22→17:37)
[2017-09-17] MEDS ORDERED: ONDANSETRON 4 MG/2 ML VIAL IV PRN (17:25)
[2017-09-17] MEDS: ceFAZolin 2,000 MG in PREMIX 1 EACH IV SCH (18:00)
[2017-09-17] MEDS: clonazePAM 0.5 MG TABLET PO PRN (20:55)
[2017-09-17] MEDS: MONTELUKAST 10 MG TABLET PO SCH (20:56)
[2017-09-17] MEDS: ATORVASTATIN 40 MG TABLET PO SCH (20:56)
[2017-09-18] MEDS: ALBUTEROL/IPRATROPIUM 3 ML NEB RESP TX SCH ×3 (01:03→12:25)
[2017-09-18] MEDS: ceFAZolin 2,000 MG in PREMIX 1 EACH IV SCH ×2 (01:16→08:03)
[2017-09-18] MEDS: LEVOTHYROXINE 150 MCG TABLET PO SCH (06:12)
[2017-09-18] MEDS: DORNASE ALFA 2.5 MG/2.5 ML VIAL RESP TX SCH (07:34)
[2017-09-18] MEDS: INSULIN LISPRO 100 UNIT/ML SUBCUT SCH ×2 (08:03→11:32)
[2017-09-18] MEDS: methylPREDNISolone SOD SUC 40 MG/1 ML VIAL IV SCH (08:04)
[2017-09-18] MEDS: DILTIAZEM CD 180 MG CAPSULE PO SCH (08:05)
[2017-09-18] MEDS: FLUoxetine 20 MG CAPSULE PO SCH (08:05)
[2017-09-18] MEDS: METHOCARBAMOL 500 MG TABLET PO SCH (08:06)
[2017-09-18] MEDS: THEOPHYLLINE ER (24 HR) 400 MG CAPSULE PO SCH (08:06)
[2017-09-18] MEDS: PANTOPRAZOLE 40 MG TABLET PO SCH (08:06)
[2017-09-18] MEDS: ALBUTEROL 2 MG TABLET PO SCH (08:06)
[2017-09-18] MEDS: metFORMIN 500 MG TABLET PO SCH (08:06)
[2017-09-18] MEDS: MELOXICAM 7.5 MG TABLET PO SCH (08:06)
[2017-09-18] MEDS: POLYETHYLENE GLYCOL POWDER 17 GM PACK PO SCH (08:07)
[2017-09-18] MEDS: LIDOCAINE 5% PATCH TRANSDERM SCH (08:08)
[2017-09-18] MEDS: LEVOFLOXACIN INJ 500 MG in PREMIX 1 EACH IV SCH (09:05)
[2017-09-18] MEDS: clonazePAM 0.5 MG TABLET PO PRN (10:40)
[2017-09-18 11:36] VITALS: BP 150/96
[2017-09-19] MEDS ORDERED: LEVOFLOXACIN 500 MG TABLET PO SCH (09:00)
== END 2017-09-18 16:27 | disposition swing bed (61) | DRG 477 ==
LOC: EDBD → EDUNIT# → N.ED 10:20 → N.EDINP 11:46 → N.2E 16:33

== ENCOUNTER 2018-04-15 15:47 | Inpatient (IN) ==
[2018-04-15] MEDS ORDERED: ALBUTEROL/IPRATROPIUM 3 ML NEB RESP TX PRN (16:19)
[2018-04-15] MEDS ORDERED: methylPREDNISolone SOD SUC 125 MG/2 ML VIAL IV STA (16:19)
[2018-04-15] MEDS ORDERED: MAGNESIUM SULF RIDER 2 GM in PREMIX 1 EACH IV STA (16:27)
[2018-04-15 16:43] LABS: Basophils # 0.1 10*3/uL (0.0-0.2); Basophils % 0.6 % (0.0-0.8); Eosinophils % 0.3 % (0.00-10.9); Hematocrit 42.2 VOL% (35.7-47.0); Hemoglobin 13.8 GM/DL (12.0-16.0); Immature Granulocytes % 0.4 %; Immature Granulocytes Absolute 0.05 #; Lymphocytes # 1.3 10*3/uL (1.4-4.0); Lymphocytes % 10.5 % (21.3-54.2); Mean Corpuscular HGB Conc 32.7 GM/DL (32-36); Mean Corpuscular Hemoglobin 29 PG (27-34); Mean Corpuscular Volume 88.1 FL (87-102); Monocytes % 7.4 % (1.7-12.7); Neutrophils # 10.3 10*3/uL (1.4-7.4); Neutrophils % 80.8 % (38.7-73.9); Platelet Count 255 T/CUMM (130-400); Red Blood Count 4.79 MC/CUMM (3.8-5.5); Red Cell Distribution Width 14.9 % (9.3-17.3); White Blood Count 12.8 T/CUMM (4-12)
[2018-04-15] MEDS ORDERED: ALBUTEROL/IPRATROPIUM 3 ML NEB RESP TX STA ×2 (16:44→17:28)
[2018-04-15 16:50] LABS: ABG Base Excess 3.8 MMOL/L (-2.5-2.5); ABG HCO3 27.7 MMOL/L (20-26); ABG Oxygen Saturation 96.4 % (95-100); ABG PCO2 43.3 MM HG (35-48); ABG PH 7.428 (7.35-7.45); ABG PO2 78.5 MM HG (80-95); ABG TCO2 24.8 MMOL/L (23-27)
[2018-04-15 17:10] LABS: Albumin 4.2 G/DL (3.4-5.0); Bilirubin,Total 0.5 MG/DL (0.2-1.0); Calcium 9.4 MG/DL (8.5-10.1); Osmolality,Calculated 285.4 MOS/KG (273-304); Potassium 4.3 MMOL/L (3.5-5.1); Total Protein 6.7 G/DL (6.4-8.3)
[2018-04-15] MEDS ORDERED: ALBUTEROL NEB SOLN 5 MG/ML 20 ML/BOTTLE CONT NEB STA (17:16)
[2018-04-15] MEDS ORDERED: LEVOFLOXACIN INJ 750 MG in PREMIX 1 EACH IV STA (17:23)
[2018-04-15] MEDS ORDERED: ACETAMINOPHEN 325 MG TABLET PO PRN (17:36)
[2018-04-15] MEDS ORDERED: PROMETHAZINE 25 MG/1 ML VIAL IM PRN (17:36)
[2018-04-15] MEDS ORDERED: LEVOFLOXACIN INJ 750 MG in PREMIX 1 EACH IV SCH (18:00)
[2018-04-15] MEDS ORDERED: GLUCAGON 1 MG VIAL IM PRN (18:01)
[2018-04-15] MEDS ORDERED: DEXTROSE 50% 25 GM/50 ML VIAL IV PRN (18:01)
[2018-04-15] MEDS: BUDESONIDE 0.5 MG/2 ML NEB RESP TX SCH (19:50)
[2018-04-15] MEDS: ALBUTEROL/IPRATROPIUM 3 ML NEB RESP TX SCH (19:50)
[2018-04-15] MEDS: ARFORMOTEROL 15 MCG/2 ML NEB RESP TX SCH (19:50)
[2018-04-15 20:53] LABS: Apearance,Urine Slightly Hazy (Clear); Bilirubin,Urine Negative (Negative); Blood, Urine Negative (Negative); Glucose,Urine (UA) Negative (Negative); Hyaline Casts,Urine 7 /LPF (0-3); Ketones,Urine Negative (Negative); Mucus,Urine Many /LPF (Occasional); Nitrite,Urine Negative (Negative); Protein,Urine Negative; RBC,Urine 1 /HPF (0-4); Squamous Epithelial Cell,Urine Occasional /HPF (0-10); Urine Color Yellow (Yellow); Urine Specific Gravity 1.023 (1.001-1.035); WBC,Urine 1 /HPF (0-6)
[2018-04-15] MEDS ORDERED: PNEUMOCOCCAL VACCINE (13 VALENT) 0.5 ML SYRINGE IM ONE (21:14)
[2018-04-15] MEDS: CLORAZEPATE 3.75 MG TABLET PO SCH (21:25)
[2018-04-15] MEDS: ALBUTEROL 2 MG TABLET PO SCH (21:25)
[2018-04-15] MEDS: MONTELUKAST 10 MG TABLET PO SCH (21:25)
[2018-04-15] MEDS: ATORVASTATIN 20 MG TABLET PO SCH (21:25)
[2018-04-15] MEDS: INSULIN LISPRO 100 UNIT/ML SUBCUT SCH (21:26)
[2018-04-15] MEDS: SODIUM CHLORIDE 0.9% 1,000 ML IV SCH (21:34)
[2018-04-16] MEDS: ALBUTEROL/IPRATROPIUM 3 ML NEB RESP TX SCH ×4 (00:53→19:55)
[2018-04-16] MEDS: methylPREDNISolone SOD SUC 125 MG/2 ML VIAL IV SCH ×3 (02:34→17:29)
[2018-04-16] MEDS: LEVOTHYROXINE 150 MCG TABLET PO SCH (06:34)
[2018-04-16 06:43] LABS: Basophils % 0.3 % (0.0-0.8); Hematocrit 37.7 VOL% (35.7-47.0); Hemoglobin 11.9 GM/DL (12.0-16.0); Immature Granulocytes % 0.5 %; Immature Granulocytes Absolute 0.04 #; Lymphocytes # 0.3 10*3/uL (1.4-4.0); Lymphocytes % 3.5 % (21.3-54.2); Mean Corpuscular HGB Conc 31.6 GM/DL (32-36); Mean Corpuscular Hemoglobin 28 PG (27-34); Mean Corpuscular Volume 87.9 FL (87-102); Mean Platelet Volume 11.6 FL (9.6-12.0); Monocytes % 0.5 % (1.7-12.7); Neutrophils # 7.4 10*3/uL (1.4-7.4); Neutrophils % 95.2 % (38.7-73.9); Red Blood Count 4.29 MC/CUMM (3.8-5.5); Red Cell Distribution Width 14.9 % (9.3-17.3)
[2018-04-16 06:44] LABS: Platelet Count 203 T/CUMM (130-400); White Blood Count 7.7 T/CUMM (4-12)
[2018-04-16 06:50] LABS: Albumin 3.5 G/DL (3.4-5.0); Bilirubin,Total 0.7 MG/DL (0.2-1.0); Calcium 9.4 MG/DL (8.5-10.1); Osmolality,Calculated 283.8 MOS/KG (273-304); Potassium 3.7 MMOL/L (3.5-5.1); Risk Ratio 2.09; Thyroid Stimulating Hormone 1.06 uIU/ml (0.358-3.74); Total Protein 6.3 G/DL (6.4-8.3); VLDL CHOLESTEROL 7.4 MG/DL
[2018-04-16 06:56] LABS: Hypochromasia Slight; Lymphocytes 1 % (20-55); Platelet Estimate Adequate; Segmented Neutrophils 99 % (50-85); Total Cells Counted 100
[2018-04-16 06:57] LABS: Microcytosis Slight
[2018-04-16] MEDS: ARFORMOTEROL 15 MCG/2 ML NEB RESP TX SCH ×2 (07:24→19:55)
[2018-04-16] MEDS: BUDESONIDE 0.5 MG/2 ML NEB RESP TX SCH ×2 (07:24→19:55)
[2018-04-16] MEDS: ONDANSETRON 4 MG/2 ML VIAL IV PRN ×3 (08:42→16:30)
[2018-04-16] MEDS: MELOXICAM 7.5 MG TABLET PO SCH (08:46)
[2018-04-16] MEDS: INSULIN LISPRO 100 UNIT/ML SUBCUT SCH ×4 (08:46→21:32)
[2018-04-16] MEDS: MAGNESIUM OXIDE 400 MG TABLET PO SCH (08:46)
[2018-04-16] MEDS: ALBUTEROL 2 MG TABLET PO SCH ×2 (08:46→21:33)
[2018-04-16] MEDS: POTASSIUM CHLORIDE 20 MEQ TABLET PO SCH (08:47)
[2018-04-16] MEDS: ENOXAPARIN 40 MG/0.4 ML SYRINGE SUBCUT SCH (08:47)
[2018-04-16] MEDS: NICOTINE 21 MG/24 HR PATCH TRANSDERM SCH (08:47)
[2018-04-16] MEDS: PANTOPRAZOLE 40 MG TABLET PO SCH (08:47)
[2018-04-16] MEDS: DILTIAZEM CD 180 MG CAPSULE PO SCH (08:47)
[2018-04-16] MEDS: CLORAZEPATE 3.75 MG TABLET PO SCH ×3 (08:47→21:33)
[2018-04-16] MEDS: THEOPHYLLINE ER (24 HR) 400 MG CAPSULE PO SCH (08:47)
[2018-04-16] MEDS: MONTELUKAST 10 MG TABLET PO SCH ×2 (08:47→21:33)
[2018-04-16] MEDS ORDERED: glipiZIDE 10 MG TABLET PO SCH (09:00)
[2018-04-16] MEDS ORDERED: buPROPion XL 150 MG TABLET PO SCH (09:00)
[2018-04-16] MEDS: VILAZODONE HCL 10 MG PO SCH (10:01)
[2018-04-16 10:54] LABS: Apearance,Urine CLEAR (Clear); Bilirubin,Urine Negative (Negative); Blood, Urine Negative (Negative); Glucose,Urine (UA) 150 mg/dL (Negative); Ketones,Urine Negative (Negative); Mucus,Urine Occasional /LPF (Occasional); Nitrite,Urine Negative (Negative); Protein,Urine Negative; Urine Color Yellow (Yellow); Urine Specific Gravity 1.015 (1.001-1.035); Urine Urobilinogen < 2.0 EU/DL (0.2-1.0); WBC,Urine 1 /HPF (0-6)
[2018-04-16] MEDS: SERTRALINE 25 MG TABLET PO SCH (12:20)
[2018-04-16] MEDS: SODIUM CHLORIDE 0.9% 1,000 ML IV SCH (15:23)
[2018-04-16] MEDS: LEVOFLOXACIN INJ 750 MG in PREMIX 1 EACH IV SCH (17:28)
[2018-04-16] MEDS: ATORVASTATIN 20 MG TABLET PO SCH (21:33)
[2018-04-16] MEDS: DOCUSATE SODIUM 100 MG CAPSULE PO PRN (21:33)
[2018-04-16] MEDS: MELATONIN 3 MG TABLET PO PRN (21:33)
[2018-04-17] MEDS: ALBUTEROL/IPRATROPIUM 3 ML NEB RESP TX SCH ×4 (00:27→20:20)
[2018-04-17] MEDS: methylPREDNISolone SOD SUC 125 MG/2 ML VIAL IV SCH (01:26)
[2018-04-17] MEDS: LEVOTHYROXINE 150 MCG TABLET PO SCH (06:01)
[2018-04-17] MEDS: BUDESONIDE 0.5 MG/2 ML NEB RESP TX SCH ×2 (07:57→20:20)
[2018-04-17] MEDS: ARFORMOTEROL 15 MCG/2 ML NEB RESP TX SCH (07:57)
[2018-04-17] MEDS ORDERED: methylPREDNISolone SOD SUC 125 MG/2 ML VIAL IV SCH (09:00)
[2018-04-17] MEDS: MONTELUKAST 10 MG TABLET PO SCH ×2 (09:52→22:11)
[2018-04-17] MEDS: VILAZODONE HCL 10 MG PO SCH (09:52)
[2018-04-17] MEDS: MAGNESIUM OXIDE 400 MG TABLET PO SCH (09:53)
[2018-04-17] MEDS: THEOPHYLLINE ER (24 HR) 400 MG CAPSULE PO SCH (09:53)
[2018-04-17] MEDS: MELOXICAM 7.5 MG TABLET PO SCH (09:53)
[2018-04-17] MEDS: POTASSIUM CHLORIDE 20 MEQ TABLET PO SCH (09:53)
[2018-04-17] MEDS: DOCUSATE SODIUM 100 MG CAPSULE PO PRN (09:53)
[2018-04-17] MEDS: ALBUTEROL 2 MG TABLET PO SCH ×2 (09:53→22:15)
[2018-04-17] MEDS: CLORAZEPATE 3.75 MG TABLET PO SCH ×3 (09:53→22:16)
[2018-04-17] MEDS: SERTRALINE 25 MG TABLET PO SCH (09:53)
[2018-04-17] MEDS: DILTIAZEM CD 180 MG CAPSULE PO SCH (09:53)
[2018-04-17] MEDS: PANTOPRAZOLE 40 MG TABLET PO SCH (09:55)
[2018-04-17] MEDS: INSULIN LISPRO 100 UNIT/ML SUBCUT SCH ×4 (09:56→22:09)
[2018-04-17] MEDS: ENOXAPARIN 40 MG/0.4 ML SYRINGE SUBCUT SCH (09:56)
[2018-04-17] MEDS: NICOTINE 21 MG/24 HR PATCH TRANSDERM SCH (09:57)
[2018-04-17] MEDS: methylPREDNISolone SOD SUC 40 MG/1 ML VIAL IV SCH ×2 (11:51→18:03)
[2018-04-17] MEDS: ONDANSETRON 4 MG/2 ML VIAL IV PRN ×2 (13:49→18:12)
[2018-04-17] MEDS: LACTULOSE 20 GM/30 ML UDCUP PO PRN (15:59)
[2018-04-17] MEDS: LEVOFLOXACIN INJ 750 MG in PREMIX 1 EACH IV SCH (18:18)
[2018-04-17] MEDS: ATORVASTATIN 20 MG TABLET PO SCH (22:11)
[2018-04-17] MEDS: MELATONIN 3 MG TABLET PO PRN (22:11)
[2018-04-18] MEDS: ALBUTEROL/IPRATROPIUM 3 ML NEB RESP TX SCH ×4 (00:30→20:21)
[2018-04-18] MEDS: ARFORMOTEROL 15 MCG/2 ML NEB RESP TX SCH ×2 (00:30→07:43)
[2018-04-18] MEDS: methylPREDNISolone SOD SUC 40 MG/1 ML VIAL IV SCH (04:01)
[2018-04-18 05:51] LABS: Basophils % 0.1 % (0.0-0.8); Hematocrit 38.7 VOL% (35.7-47.0); Hemoglobin 11.6 GM/DL (12.0-16.0); Immature Granulocytes % 1.6 %; Immature Granulocytes Absolute 0.24 #; Lymphocytes # 0.4 10*3/uL (1.4-4.0); Lymphocytes % 2.4 % (21.3-54.2); Mean Corpuscular Hemoglobin 27 PG (27-34); Mean Corpuscular Volume 91.3 FL (87-102); Mean Platelet Volume 11.4 FL (9.6-12.0); Monocytes # 0.6 10*3/uL (0.11-0.8); Monocytes % 3.6 % (1.7-12.7); Neutrophils # 14.1 10*3/uL (1.4-7.4); Neutrophils % 92.3 % (38.7-73.9); Platelet Count 201 T/CUMM (130-400); Red Blood Count 4.24 MC/CUMM (3.8-5.5); Red Cell Distribution Width 15.1 % (9.3-17.3); White Blood Count 15.2 T/CUMM (4-12)
[2018-04-18 06:06] LABS: Osmolality,Calculated 294.4 MOS/KG (273-304); Potassium 4.4 MMOL/L (3.5-5.1)
[2018-04-18 06:15] LABS: Lymphocytes 1 % (20-55); Segmented Neutrophils 96 % (50-85); Total Cells Counted 100
[2018-04-18 06:16] LABS: Hypochromasia 1+; Microcytosis Slight; Platelet Estimate Adequate
[2018-04-18] MEDS: LEVOTHYROXINE 150 MCG TABLET PO SCH (06:23)
[2018-04-18] MEDS: BUDESONIDE 0.5 MG/2 ML NEB RESP TX SCH (07:43)
[2018-04-18] MEDS: ALBUTEROL 2 MG TABLET PO SCH ×2 (09:24→21:57)
[2018-04-18] MEDS: PANTOPRAZOLE 40 MG TABLET PO SCH (09:24)
[2018-04-18] MEDS: THEOPHYLLINE ER (24 HR) 400 MG CAPSULE PO SCH (09:24)
[2018-04-18] MEDS: MONTELUKAST 10 MG TABLET PO SCH ×2 (09:24→21:58)
[2018-04-18] MEDS: LACTULOSE 20 GM/30 ML UDCUP PO PRN (09:24)
[2018-04-18] MEDS: SERTRALINE 25 MG TABLET PO SCH (09:24)
[2018-04-18] MEDS: LEVOFLOXACIN 500 MG TABLET PO SCH (09:24)
[2018-04-18] MEDS: predniSONE 20 MG TABLET PO SCH (09:24)
[2018-04-18] MEDS: MAGNESIUM OXIDE 400 MG TABLET PO SCH (09:24)
[2018-04-18] MEDS: DILTIAZEM CD 180 MG CAPSULE PO SCH (09:25)
[2018-04-18] MEDS: CLORAZEPATE 3.75 MG TABLET PO SCH ×3 (09:25→21:57)
[2018-04-18] MEDS: MELOXICAM 7.5 MG TABLET PO SCH (09:25)
[2018-04-18] MEDS: DOCUSATE SODIUM 100 MG CAPSULE PO PRN (09:25)
[2018-04-18] MEDS: NICOTINE 21 MG/24 HR PATCH TRANSDERM SCH (09:25)
[2018-04-18] MEDS: ENOXAPARIN 40 MG/0.4 ML SYRINGE SUBCUT SCH (09:25)
[2018-04-18] MEDS: POTASSIUM CHLORIDE 20 MEQ TABLET PO SCH (09:25)
[2018-04-18] MEDS: BUDESONIDE/FORMOTEROL 160-4.5 INHALER 6 GM INH SCH ×2 (09:26→21:58)
[2018-04-18] MEDS: INSULIN LISPRO 100 UNIT/ML SUBCUT SCH ×4 (09:26→21:57)
[2018-04-18] MEDS: VILAZODONE HCL 10 MG PO SCH (09:31)
[2018-04-18] MEDS ORDERED: BISACODYL 10 MG SUPP RECTAL PRN (10:22)
[2018-04-18] MEDS: LACTULOSE 20 GM/30 ML UDCUP PO SCH (21:56)
[2018-04-18] MEDS: ATORVASTATIN 20 MG TABLET PO SCH (21:57)
[2018-04-19] MEDS: ALBUTEROL/IPRATROPIUM 3 ML NEB RESP TX SCH ×2 (02:04→07:31)
[2018-04-19] MEDS: LEVOTHYROXINE 150 MCG TABLET PO SCH (06:32)
[2018-04-19] MEDS: LACTULOSE 20 GM/30 ML UDCUP PO SCH (08:35)
[2018-04-19] MEDS: predniSONE 20 MG TABLET PO SCH (08:36)
[2018-04-19] MEDS: DOCUSATE SODIUM 100 MG CAPSULE PO PRN (08:36)
[2018-04-19] MEDS: MELOXICAM 7.5 MG TABLET PO SCH (08:36)
[2018-04-19] MEDS: PANTOPRAZOLE 40 MG TABLET PO SCH (08:36)
[2018-04-19] MEDS: MONTELUKAST 10 MG TABLET PO SCH (08:36)
[2018-04-19] MEDS: MAGNESIUM OXIDE 400 MG TABLET PO SCH (08:36)
[2018-04-19] MEDS: SERTRALINE 25 MG TABLET PO SCH (08:36)
[2018-04-19] MEDS: ALBUTEROL 2 MG TABLET PO SCH (08:36)
[2018-04-19] MEDS: DILTIAZEM CD 180 MG CAPSULE PO SCH (08:36)
[2018-04-19] MEDS: LEVOFLOXACIN 500 MG TABLET PO SCH (08:36)
[2018-04-19] MEDS: THEOPHYLLINE ER (24 HR) 400 MG CAPSULE PO SCH (08:36)
[2018-04-19] MEDS: CLORAZEPATE 3.75 MG TABLET PO SCH ×2 (08:37→14:19)
[2018-04-19] MEDS: POTASSIUM CHLORIDE 20 MEQ TABLET PO SCH (08:37)
[2018-04-19] MEDS: ENOXAPARIN 40 MG/0.4 ML SYRINGE SUBCUT SCH (08:37)
[2018-04-19] MEDS: NICOTINE 21 MG/24 HR PATCH TRANSDERM SCH (08:37)
[2018-04-19] MEDS: INSULIN LISPRO 100 UNIT/ML SUBCUT SCH ×2 (08:37→12:54)
[2018-04-19] MEDS: BUDESONIDE/FORMOTEROL 160-4.5 INHALER 6 GM INH SCH (08:38)
[2018-04-19 12:31] VITALS: BP 134/73
== END 2018-04-19 15:02 | disposition hospice, home (50) | DRG 190 ==
LOC: EDBD → EDUNIT# → N.EDINP 15:47 → N.ED 15:47 → N.5E 20:01
PROVIDERS: ADMIT Internal Medicine; ATTEND Internal Medicine